=== PATIENT | female | born 1960 | race Caucasian/White ===

== ENCOUNTER 2017-03-20 22:10 | Emergency (ER) | payer BC ==
[~2017-03-20] VITALS: Ht 165.1 cm; Wt 97.1 kg
[~2017-03-20 22:10] MED LIST: ALBUTEROL2.5 MG/0.5 INH; AUGMENTIN 875-1 EACH PO; CEFDINIR300 MG PO; FLUTICASONE PRO16 GM NS; MUPIROCIN22 GM TOP; PREDNISONE20 MG PO; PSEUDOEPHEDRINE60 MG PO; QVAR7.3 GM INH; TESSALON PERLE100 MG PO
[2017-03-20] MEDS ORDERED: LISINOPRIL-HCT1 EAC2 PO (23:00)
[2017-03-20] MEDS ORDERED: VENTOLIN HFA18 GM INH (23:01)
--- NOTE | 2017-03-21 21:01 | EKG ---
[facility] [address] [place] [address] Signed Normal sinus rhythm Normal ECG No previous ECGs available Confirmed by LOURDES DURHAM MD ([id number]) on 03/21/2017 9:01:09 PM Electronically Signed By: LOURDES DURHAM MD 03/21/172100 PATIENT NAME: GABRIELLA DESHPANDE Electrocardiogram DATE OF : 58 PHYSICIAN: LOURDES DURHAM MD REPORT #: [id number] REPORT IS CONFIDENTIAL AND NOT TO BE RELEASED WITHOUT AUTHORIZATION
== END 2017-03-20 23:39 | disposition home or self-care (01) ==
LOC: ED 22:10
DX: R06.00 Dyspnea, unspecified (principal); R06.4 Hyperventilation; J45.909 Unspecified asthma, uncomplicated; I10 Essential (primary) hypertension; Z88.1 Allergy status to other antibiotic agents; Z79.51 Long term (current) use of inhaled steroids; Z79.899 Other long term (current) drug therapy
CPT/HCPCS: 71010; 80053; 82803; 85025; 93005; 93010; 99283

== ENCOUNTER 2019-05-19 23:05 | Emergency (ER) | payer BC ==
[~2019-05-19] VITALS: Ht 165.1 cm; Wt 99.8 kg
--- OUTSIDE RECORDS SUMMARY | ~2019-05-19 | XMS | Encounter Summary ---
Demographics + + + | Address | [address] | | | [place] [address] | + + + | Home Phone | | + + + | Preferred Language | Unknown | + + + | Marital Status | Single | + + + | Caodaism Affiliation | LDS | + + + | Race | White | + + + | Ethnic Group | Not or | + + + Author + + + | Author | [facility] | + + + | Organization | [facility] | + + + | Address | Unknown | + + + | Phone | Unavailable | + + + Support + + + + + | Name | Relationship | Address | Phone | + + + + + | Huber Chen | ECON | [address] | | | | | [place] [address] | | + + + + + Care Team Providers + +------+ + | Care Broadcast Operations Engineer Name | Role | Phone | + +------+ + PCP | Unavailable | + +------+ + Reason for Visit + + + | Reason | Comments | + + + | Sinusitis | she has a sinus infection and would like a call back | + + + Encounter Details +--------+ + + + + | Date | Type | Department | Care Team | Description | +--------+ + + + + | 10/30/ | Telephone | [place] [facility] | Brenden Rawls | Sinusitis (she has a | | 2007 | | Center at [facility] [address] | [address] | sinus infection and | | | | [address] | would like a call | | | | Mailcode: CH[address]E | [place] [address] | back) | | | | [facility] | | | | | | and Healing, | | | | | | Building [address], [address]th | | | | | | Floor [place], [place] | | | | | | [address] | | | | | | [phone] | | | +--------+ + + + + Social History + +-------+ +--------+------+ | Tobacco Use | Types | Packs/Day | Years | Date | | | | | Used | | + +-------+ +--------+------+ | Never Smoker | | | | | + +-------+ +--------+------+ + + +---------+ + | Alcohol Use | Drinks/Week | oz/Week | Comments | + + +---------+ + | No | | | | + + +---------+ + + + + | Sex Assigned at | Date Recorded | | | | + + + | Not on file | | + + + + + + + | Job Start Date | Occupation | Industry | + + + + | Not on file | Not on file | Not on file | + + + + + + + + | Travel History | Travel Start | Travel End | + + + + + + | No recent travel history available. | + + documented as of this encounter Plan of Treatment Not on filedocumented as of this encounter Visit Diagnoses Not on filedocumented in this encounter"
--- OUTSIDE RECORDS SUMMARY | ~2019-05-19 | XMS | Encounter Summary ---
Demographics + + + | Address | [address] | | | [place] [address] | + + + | Home Phone | | + + + | Preferred Language | Unknown | + + + | Marital Status | Single | + + + | Baptism Affiliation | 1027 | + + + | Race | Unknown | + + + | Ethnic Group | Unknown | + + + Author + + + | Author | [facility] | | | and [place] | + + + | Organization | [facility] | | | and [place] | + + + | Address | Unknown | + + + | Phone | Unavailable | + + + Support + + +---------+ + | Name | Relationship | Address | Phone | + + +---------+ + | Huber Chen | ECON | Unknown | | + + +---------+ + Care Team Providers + +------+ + | Care Guest Services Assistant Name | Role | Phone | + +------+ + | Cachorro Maddox DO | PCP | Unavailable | + +------+ + Reason for Visit + + + | Reason | Comments | + + + | Medication Refill | | + + + Encounter Details +--------+--------+ + + + | Date | Type | Department | Care Team | Description | +--------+--------+ + + + | 05/11/ | Refill | [facility] | Cachorro Maddox | Medication Refill | | 2018 | | [facility] | E, DO [address] | | | | | [facility] [address] | [place], [place] | | | | | [address] [place], | [address] | | | | | [place] [address] | [phone] | | | | | [phone] | | | +--------+--------+ + + + Social History + +-------+ +--------+------+ | Tobacco Use | Types | Packs/Day | Years | Date | | | | | Used | | + +-------+ +--------+------+ | Never Smoker | | | | | + +-------+ +--------+------+ + +---+---+---+ | Smokeless Tobacco: | | | | | Never Used | | | | + +---+---+---+ + + +---------+ + | Alcohol Use | Drinks/We | oz/Week | Comments | | | ek | | | + + +---------+ + | No [...]
--- OUTSIDE RECORDS SUMMARY | ~2019-05-19 | XMS | Encounter Summary ---
Demographics + + + | Address | [address] | | | [place] [address] | + + + | Home Phone | | + + + | Preferred Language | Unknown | + + + | Marital Status | Single | + + + | Pentecostal Affiliation | LDS | + + + [...] | | | | | [place] [address] | | + + + + + Care Team Providers + +------+ + | Care Lead Manufacturing Engineer Name | Role | Phone | + +------+ + PCP | Unavailable | + +------+ + Reason for Visit +---------+ + | Reason | Comments | +---------+ + | Post Op | she is still getting a lot of blood drainage w/ watery drainage | | | and would like a call back. | +---------+ + Encounter Details +--------+ + + + + | Date | Type | Department | Care Team | Description | +--------+ + + + + | 08/02/ | Telephone | [place] [facility] | Dylan Rawls, | Post Op (she is | | 2007 | | Center at [facility] [address] | MD [address] | still getting a lot | | | | [address] | [place], [place] | of blood drainage w/ | | | | Mailcode: [facility] | [address] | watery drainage and | | | | [facility] | [phone] | would like a call | | | | and Healing, | | back.) | | | | Building , | | | | | | Floor [place], [place] | | | | | | [address] | | | | | | [phone] | | | +--------+ + + + [...]
--- OUTSIDE RECORDS SUMMARY | ~2019-05-19 | XMS | Encounter Summary ---
Demographics + + + | Address | [address] | | | [place] [address] | + + + | Home Phone | | + + + | Preferred Language | Unknown | + + + | Marital Status | Single | + + + | Islam Affiliation | LDS | + + + | Race | White | + + + | Ethnic Group | Not or | + + + Author + + + | Author | [facility] | + + + | Organization | [facility] | + + + | Address | Unknown | + + + | Phone | Unavailable | + + + Support + + + + + | Name | Relationship | Address | Phone | + + + + + | Huber Chen | ECON | [address] | | | | | [place] [address] | | + + + + + Care Team Providers + +------+ + | Care Psychologist Private Practice Name | Role | Phone | + +------+ + PCP | Unavailable | + +------+ + Reason for Visit + + + | Reason | Comments | + + + | Discussion | she would like us to fax in a letter to her employer stating why | | | she has not been able to work the last few days | + + + Encounter Details +--------+ + + + + | Date | Type | Department | Care Team | Description | +--------+ + + + + | 07/24/ | Telephone | [place] [facility] | Dylan Rawls, | Discussion (she | | 2008 | | Center at [facility] [address] | MD [address] | would like us to fax | | | | [address] | [place], [place] | in a letter to her | | | | Mailcode: CH5E | [address] | employer stating why | | | | [facility] | [phone] | she has not been | | | | and Healing, | | able to work the | | | | Building | | last few days) | | | | Floor [place], [place] | | | | | | [address] | | | | | | [phone] | | | +--------+ + + + [...]
--- OUTSIDE RECORDS SUMMARY | ~2019-05-19 | XMS | Encounter Summary ---
Demographics + + + | Address | [address] | | | [place] [address] | + + + | Home Phone | | + + + | Preferred Language | Unknown | + + + | Marital Status | Single | + + + | Congregation Affiliation | LDS | + + + | Race | White | + + + | Ethnic Group | Not or | + + + Author + + + | Author | [facility] | + + + | Organization | [facility] | + + + | Address | Unknown | + + + | Phone | Unavailable | + + + Support + + + + + | Name | Relationship | Address | Phone | + + + + + | Huber Chen | ECON | [address] | | | | | [place] [address] | | + + + + + Care Team Providers + +------+ + | Care Money Position Officer Name | Role | Phone | + +------+ + | Cachorro Maddox DO | PCP | | + +------+ + Reason for Visit +--------+ + | Reason | Comments | +--------+ + | Rash | Patient presents for presisitant rash. Pt states that it appears | | | like acne and that it's all over her body. Pt states that it's | | | ongoing since 2007. Dr. Maddox had her use hibiclens on and off. | | | Pt states that she brought the products with her to appt that | | | she is using now. | +--------+ + Consultation (Routine) +--------+--------+ + + + + | Status | Reason | Specialty | Diagnoses / | Referred By | Referred To | | | | | Procedures | Contact | Contact | +--------+--------+ + + + + | Closed | | Dermatology | Diagnoses | Tan, | [place], | | | | | Contact | DO Cachorro | Eileen Wu, | | | | | dermatitis | [address] | ,PhD 1935 | | | | | and other | [place], | E | | | | | eczema, due | [place] | [place], | | | | | to | [address] | [place] [address] | | | | | unspecified | Phone: | Phone: | | | | | cause | [phone] | [phone] | | | | | | Fax: | Fax: | | | | | | [phone] | [phone] | +--------+--------+ + + + + Encounter Details +--------+---------+ + + + | Date | Type | Department | Care Team | Description | +--------+---------+ + + + | 07/08/ | Office | Dermatology at | Eileen Teixeira, | Folliculitis | | 2015 | Visit | [facility] | ,PhD 1935 | (Primary Dx) | | | | Clinic [address] | [address] [place], [place] | | | | | [place], [place] | [address] | | | | | [address] | [phone] | | | | | [phone] | | | +--------+---------+ + + + Social History + +-------+ +--------+------+ | Tobacco Use | Types | Packs/Day | Years | Date | | | | | Used | | + +-------+ +--------+------+ | Never Smoker | | | | | + +-------+ +--------+------+ + + +---------+ + | Alcohol Use | Drinks/Week | oz/Week | Comments | + + +---------+ + | No | 0 Standard drinks | 0.0 | | | | or equivalent | | | + + +---------+ + [...] + + documented as of this encounter Last Filed Vital Signs + + + + + | Vital Sign | Reading | Time Taken | Comments | + + + + + | Blood Pressure | 138/80 | 07/08/2015 11:44 AM | | | | | PST | | + + + + + | Pulse | 74 | 07/08/2015 11:44 AM | | | | | PST | | + + + + + | Temperature | - | - | | + + + + + | Respiratory Rate | - | - | | + + + + + | Oxygen Saturation | - | - | | + + + + + | Inhaled Oxygen | - | - | | | Concentration | | | | + + + + + | Weight | 97.5 kg (215 lb) | 07/08/2015 11:44 AM | | | | | PST | | + + + + + | Height | 163.8 cm (5' 4.5") | 07/08/2015 11:44 AM | | | | | PST | | + + + + + | Body Mass Index | 36.33 | 07/08/2015 11:44 AM | | | | | PST | | + + + + + documented in this encounter Patient Instructions Patient Instructions Jessica Price MA - 07/08/2015 11:55 AM PSTFormatting of this note m ight be different from the original. [facility] Skin Care for Atopic Dermatitis and Very Dry Skin 1. Use soap sparingly and infrequently, and do not take hot showers or baths Soap removes oils as well as dirt. If you want to clean a greasy cooking pot, you use hot w ater and lots of soap. But if you use hot water and soap on your skin, it will strip natural oils out of the skin. These oils are designed to protect your skin, and keep it from drying out. Our skin is NOT designed to be soaped up every day. Skin is normally pretty resilient and tough, and many people can tolerate daily treatment with soap all over their skin -- but not people with atopic dermatitis or sensitive skin. So: ? When you take a shower, only soap your armpits and groin; do not use cleanser on the rest of your skin unless it is visibly dirty. ? Do not take long, hot showers: even without cleanser this will irritate the skin. If your skin is already itching, the hot water will feel VERY good -- but will make the skin feel w orse, later. ? If you take baths, do not make them very hot. AND, do not use any soap or shampoo at all until you are about ready to get out! Again, use cleanser only in the armpits & groin, or vi sibly dirty areas, and rinse off immediately. ? If you must use an antibacterial soap, I recommend Hibiclens Wash 1-2 times a week. If bl each baths have been recommended by your doctor add 1/4 cup bleach to a full bath and soak o nce weekly. Mild Cleansers ? Dove Unscented bar ? Olay Body bar ? Cetaphil bar ? Cetaphil cleanser (does not foam but works well!) ? Neutrogena cleansing wash ? Purpose liquid cleanser 2. Use moisturizing CREAMS or OINTMENTS -- not lotions Moisturizers do NOT really add moisture to the skin, but they help add a protective coating that reduces water loss, allowing the skin to moisturize itself from the inside. Apply your moisturizer IMMEDIATELY after your shower or bath to SEAL in the moisture you gained. "Soak , and Seal!" For people with very dry skin, LOTIONS ARE MOSTLY USELESS, and many of them will irritate t he skin. Creams (oil in water emulsions; too thick to make "drops") are generally good moist urizers, and ointments are the best of all, but ointments are greasy and not very elegant -- most people don't enjoy using them. 3. Apply cream or ointment twice a day, and after every shower/bath. Moisturizers can be ap plied as often as desired; use them liberally at least twice a day. The most important time to apply a moisturizer is right after bathing or showering, before the skin is completely dr y. Most moisturizing creams will do the job: it is safest, however, to choose creams that do n ot have added fragrance. Recommended creams ? Cetaphil Cream (my favorite: very effective and very well tolerated) ? CeraVe Cream ? Curel Dry Skin Care ? Eucerin Cream (pretty thick, and hard to apply, but very effective; no odor) ? Neutrogena Hand Cream ? Vanicream (especially good for sensitive skin) Ointments ? Vaseline (100% petroleum jelly) ? Aquaphor ointment 4. Avoid contact with irritants and solvents ? Wool clothing, or any rough fabric ? Alcohol will strip oils from the skin: Avoid toners ? Kitchen cleansers and solvents ? Bleach ? Avoid hydrogen peroxide documented in this encounter Progress Notes Eileen Teixeira MD,PhD - 07/08/2015 11:59 AM PSTFormatting of this note might be differen t from the original. DERMATOLOGY NEW PATIENT VISIT CHIEF COMPLAINT: Rash PCP: Cachorro Maddox DO HISTORY OF PRESENT ILLNESS: Jesusita Chen is a 55 y.o. female who presents for evaluation of Rash She is here for eval uation of skin problems. She describes that for the last 7 or 8 years she has had acne-like bumps that developed on her buttocks and legs. She states they start as either pink bumps or pustules, they can be somewhat itchy, and generally she scratches them until they leave a small scar. The scars are bothersome to her more than the rash. She states that this all started after she had numerous bouts of sinusitis that required sinus surgery. She had been on numerous courses of antibiotics. She has no personal history of skin cancer and declines a full body skin exam today. She h as used Hibiclens in the past. The patient's dermatology intake form was reviewed, signed, and dated. Her relevant PMH, F H, and SH includes: PAST MEDICAL HISTORY: Past Medical History Diagnosis Date Sinus infection Heartburn PAST SURGICAL HISTORY: No past surgical history on file. SOCIAL HISTORY: Patient reports that she has never smoked. She does not have any smokeless tobacco history on file. She reports that she does not drink alcohol. MEDICATIONS: Current Medication List Name Sig CLINDAMYCIN 1 % LOTION Apply to affected area two times daily. Apply a thin film to the af fected area. FLUTICASONE 50 MCG/ACTUATION NASAL SPRAY,SUSPENSION Instill 2 Sprays into each nostril once daily. PRILOSEC 20 MG CAPSULE,DELAYED RELEASE take 1 capsule (20 mg) by oral route once daily befo re a meal PREDNISOLONE ACETATE 1 % EYE DROPS,SUSPENSION Instill into both eyes. Use three drops in ea ch NOSTRIL BID PREDNISOLONE ACETATE 1 % EYE DROPS,SUSPENSION Instill in nose. Three drops in each nostril BID. ALLERGIES: No Known Allergies REVIEW OF SYSTEMS: Please see HPI and PMH. In addition, she denies fever, chills, sweats, weight loss or loss of appetite, and has no further skin complaints. PHYSICAL EXAMINATION: BP 138/80 | Pulse 74 | Ht 1.638 m (5' 4.5") | Wt 97.523 kg (215 lb) | BMI 36.35 kg/(m^2) Well-developed, well-nourished female in no acute distress. Awake, alert and oriented. Pl easant and cooperative mood. A skin examination was performed including the buttocks, bilateral arms and legs, bilateral hands and feet, and nails. Findings were within normal limits except for the following: --violaceous angular scars and erosions with crust scattered infrequently on the legs and b uttocks ASSESSMENT AND PLAN: Folliculitis (primary encounter diagnosis) Comment: we discussed that there were no primary lesions (lesions that had not been manipul ated) on exam today, and that a skin biopsy of a new and untouched lesion may be helpful. Ba sed on the distribution and her description of the lesions this is most likely folliculitis. --Dry skin care handout provided --Start clindamycin lotion daily --Call in 1 month, if not improved we discussed low dose DCN (100 mg daily), or having her come back with a fresh lesion for Bx Plan: Orders Placed This Encounter clindamycin 1 % topical lotion RETURN VISIT: Return in about 1 month (around 08/08/2015). Eileen Teixeira MD, PhD Clinical Pharmacist Department of Dermatology [facility] [place] 07/08/2015 documented in th is encounter Plan of Treatment Not on filedocumented as of this encounter Visit Diagnoses + + | Diagnosis | + + | Folliculitis - Primary Other specified disease of hair and hair follicles | + + documented in this encounter
--- OUTSIDE RECORDS SUMMARY | ~2019-05-19 | XMS | Encounter Summary ---
Demographics + + + | Address | [address] | | | [place] [address] | + + + | Home Phone | | + + + | Preferred Language | Unknown | + + + | Marital Status | Single | + + + | Yazidism Affiliation | LDS | + + + | Race | White | + + + | Ethnic Group | Not or | + + + Author + + + | Author | [facility] | + + + | Organization | [facility] | + + + | Address | Unknown | + + + | Phone | Unavailable | + + + Support + + + + + | Name | Relationship | Address | Phone | + + + + + | Huber Chen | ECON | [address] | | | | | [place] [address] | | + + + + + Care Team Providers + +------+ + | Care Emergency Medcl Emt Name | Role | Phone | + +------+ + | Cachorro Maddox DO | PCP | | + +------+ + Encounter Details +--------+ + + + + | Date | Type | Department | Care Team | Description | +--------+ + + + + | 07/21/ | Ancillary | Registration [id number] | Dylan Rawls, | | | 2008 | Registratio | [address] | [address] | | | | n | [place] Mailcode: [id number] | [place], [place] | | | | | [place], [place] | [address] | | | | | [address] | [phone] | | | | | [phone] | | | +--------+ + + + [...]
--- OUTSIDE RECORDS SUMMARY | ~2019-05-19 | XMS | Encounter Summary ---
Demographics + + + | Address | [address] | | | [place] [address] | + + + | Home Phone | | + + + | Preferred Language | Unknown | + + + | Marital Status | Single | + + + | Baptist Affiliation | LDS | + + + | Race | White | + + + | Ethnic Group | Not or | + + + Author + + + | Author | [facility] | + + + | Organization | [facility] | + + + | Address | Unknown | + + + | Phone | Unavailable | + + + Support + + + + + | Name | Relationship | Address | Phone | + + + + + | Huber Chen | ECON | [address] | | | | | [place] [address] | | + + + + + Care Team Providers + +------+ + | Care Long Chain Quiller Tender Name | Role | Phone | + +------+ + PCP | Unavailable | + +------+ + Reason for Visit + + + | Reason | Comments | + + + | Sinusitis | she has another sinus infection and would like to get a return | | | call | + + + Encounter Details +--------+ + + + + | Date | Type | Department | Care Team | Description | +--------+ + + + + | 08/29/ | Telephone | [place] [facility] | Dylan Rawls, | Sinusitis (she has | | 2007 | | Center at [facility] [address] | MD [address] | another sinus | | | | [address] | [place], [place] | infection and would | | | | Mailcode: [facility] | [address] | like to get a return | | | | [facility] | [phone] | call) | | | | and Healing, | | | | | | [facility] , | | | | | | [place], [place] | | | | | | [address] | | | | | | [phone] | | | +--------+ + + + [...]
--- OUTSIDE RECORDS SUMMARY | ~2019-05-19 | XMS | Encounter Summary ---
Demographics + + + | Address | [address] | | | [place] [address] | + + + | Home Phone | | + + + | Preferred Language | Unknown | + + + | Marital Status | Single | + + + | Sikh Affiliation | LDS | + + + | Race | White | + + + | Ethnic Group | Not or | + + + Author + + + | Author | [facility] | + + + | Organization | [facility] | + + + | Address | Unknown | + + + | Phone | Unavailable | + + + Support + + + + + | Name | Relationship | Address | Phone | + + + + + | Huber Chen | ECON | [address] | | | | | [place] [address] | | + + + + + Care Team Providers + +------+ + | Care District Sales Coordinator Name | Role | Phone | + +------+ + | Cachorro Maddox DO | PCP | | + +------+ + Encounter Details +--------+ + + + + | Date | Type | Department | Care Team | Description | +--------+ + + + + | 07/29/ | Hospital | Registration 3181 | Dylan Rawls, | | | 2007 | Activity | [address] | [address] | | | | | [place] Mailcode: [id number] | [place], [place] | | | | | [place], [place] | [address] | | | | | [address] | [phone] | | | | | [phone] | | | +--------+ + + + [...] Not on filedocumented as of this encounter Procedures + +--------+ + + + | Procedure Name | Priori | Date/Time | Associated Diagnosis | Comments | | | ty | | | | + +--------+ + + + | SURGICAL PATHOLOGY | Routin | 07/29/2007 | | Results for this | | | e | | | procedure are in the | | | | | | results section. | + +--------+ + + + documented in this encounter Results SURGICAL PATHOLOGY (07/29/2007) + + + + + + | Component | Value | Ref Range | Performed | Pathologist | | | | | At | Signature | + + + + + + | SURGICAL | SOURCE OF SPECIMEN:A | | [facility] | | | PATHOLOGY | Left sinus contents | | DEPARTMENT | | | | Final Pathologic | | OF | | | | Diagnosis:Sinus | | PATHOLOGY | | | | contents, left, | | | | | | debridement: - | | | | | | Chronic sinusitis | | | | | | - Bone and cartilage | | | | | | fragments with no | | | | | | diagnostic abnormality | | | | | | Case reviewed by:Sai Elizondo | | | | | | Yessenia Terrell | | | | | | /Arturo Giordano | | | | | | Ana, Ph.D., M.D. | | | | | | /PathologistT:08/02/07/ | | | | | | I have reviewed all | | | | | | diagnostic slides and | | | | | | have edited the gross | | | | | | and/ormicroscopic | | | | | | portion of this report | | | | | | as part of my pathologic | | | | | | assessment andfinal | | | | | | diagnosis. Clinical | | | | | | History:The patient is a | | | | | | 47-year-old female. | | | | | | Per LCR Web: | | | | | | 47-year-old female | | | | | | withnasal septal | | | | | | deviation and left | | | | | | chronic sinusitis. Gross | | | | | | Description:Received is | | | | | | one specimen fresh in a | | | | | | container labeled with | | | | | | the patient | | | | | | name(initials DP) and | | | | | | "left sinus contents." | | | | | | Received are several | | | | | | fragments ofgelatinous, | | | | | | pink tissue measuring 3 | | | | | | x 2 x 1 cm in | | | | | | aggregate.Splicing Machine Operator Automatic | | | | | | sections are submitted. | | | | | | Cassette Index:A1, | | | | | | filtered and wrapped, | | | | | | decalcification | | | | | | performedJK/CPN/sgRender | | | | | | ing Diagnostician: | | | | | | Cheryl Perez Ph.D., | | | | | | | | | | | | MBobbiPathologistElectroni | | | | | | chika Signed 08/02/2007 | | | | + + + + + + + + | Specimen | + + | | + + + + + + + | Performing | Address | City/State/Zipcode | Phone Number | | Organization | | | | + + + + + | [facility] | [address] [place] [address] | [place] [address] | | | PATHOLOGY | SOLOMON BUTLER | | | + + + + + | [facility] | [address] [place] [address] | [place] [address] | | | PATHOLOGY | SOLOMON BUTLER | | | + + + + + documented in this encounter Visit Diagnoses Not on filedocumented in this encounter
--- OUTSIDE RECORDS SUMMARY | ~2019-05-19 | XMS | Clinical Summary ---
Demographics + + + | Address | [address] | | | [place] [address] | + + + | Home Phone | | + + + | Preferred Language | Unknown | + + + | Marital Status | Single | + + + | Evangelical Affiliation | 1027 | + + + | Race | Unknown | + + + | Ethnic Group | Unknown | + + + Author + + + | Author | [facility] | | | and [place] | + + + | Organization | [facility] | | | and [...] Team Providers + +------+ + | Care Decaler Name | Role | Phone | + +------+ + | Cachorro Maddox DO | PCP | Unavailable | + +------+ + Allergies + + + + + + | Active Allergy | Reactions | Severity | Noted | Comments | | | | | Date | | + + + + + + | Levofloxacin | Hives, Rash | Low | 02/29/20 | Dizziness and | | | | | 18 | sleeplessness | + + + + + + | Atorvastatin | Other (See Comments) | | 02/29/20 | Muscle aches | | | | | 18 | | + + + + + + Medications + + + +---------+------+------+-------+ | Medication | Sig | Dispensed | Refills | Star | End | Statu | | | | | | t | Date | s | | | | | | Date | | | + + + +---------+------+------+-------+ | acetaminophen | Take 650 mg by mouth | | 0 | | | Activ | | (TYLENOL) 325 mg | every 4 hours as | | | | | e | | tablet | needed. | | | | | | + + + +---------+------+------+-------+ | fluticasone | Instill 2 Sprays | | 0 | 04/1 | | Activ | | (FLONASE) 50 | into each nostril | | | 7/20 | | e | | mcg/nasal spray | once daily. | | | 09 | | | + + + +---------+------+------+-------+ | cetirizine (KLS | Take 10 mg by mouth | | 0 | | | Activ | | ALLER-EPI) 10 mg | Daily. | | | | | e | | tablet | | | | | | | + + + +---------+------+------+-------+ | UNCODED DME | CPAP Device and kit | | 0 | | | Activ | | | | | | | | e | + + + +---------+------+------+-------+ | Hypertonic Nasal | by Nasal route. | | 0 | | | Activ | | Wash (SINUS RINSE | | | | | | e | | BOTTLE KIT) PACK | | | | | | | + + + +---------+------+------+-------+ | azelastine 0.1% | 2 sprays by Nasal | 30 mL | 3 | 10/2 | | Activ | | nasal spray | route 2 times daily. | | | 20 | | e | | | Uses only at work | | | 18 | | | + + + +---------+------+------+-------+ | sulfacetamide | Instill 2 drops into | 10 mL | 0 | 02/1 | | Activ | | (BLEPH-10) 10% | affected eye 4 | | | 20 | | e | | ophthalmic solution | times daily for 7 | | | 19 | | | | | days as directed. | | | | | | + + + +---------+------+------+-------+ | montelukast | Take 1 tablet by | 30 | 11 | 05/1 | | Activ | | (SINGULAIR) 10 mg | mouth Daily. | tablet | | 20 | | e | | tabletIndications: | | | | 19 | | | | Chronic pansinusitis | | | | | | | + + + +---------+------+------+-------+ | albuterol 2.5 mg/3 | Take 3 mLs by | 60 vial | 11 | 06/0 | | Activ | | mL nebulizer | nebulization 4 times | | | 3/20 | | e | | solution | daily. | | | 19 | | | + + + +---------+------+------+-------+ | | Take 5-10 mLs by | 120 mL | 0 | 06/1 | | Activ | | promethazine-codeine | mouth EVERY 4 TO 6 | | | 3/20 | | e | | (PHENERGAN WITH | HOURS NEEDED for | | | 19 | | | | CODEINE) 6.25-10 | Cough. | | | | | | | mg/5 mL syrup | | | | | | | + + + +---------+------+------+-------+ | albuterol 90 | INHALE 2 PUFFS EVERY | 18 g | 1 | 10/2 | | Activ | | mcg/puff inhaler | 6 HOURS NEEDED | | | 8/20 | | e | | | FOR WHEEZING, USE | | | 19 | | | | | DIRECTED | | | | | | + + + +---------+------+------+-------+ | pseudoePHEDrine | TAKE 1 TABLET BY | 60 | 0 | 10/2 | | Activ | | (SUDOGEST) 30 mg | MOUTH EVERY 4 HOURS | tablet | | 8/20 | | e | | tablet | NEEDED FOR UP | | | 19 | | | | | TO 15 DAYS | | | | | | + + + +---------+------+------+-------+ | | TAKE 1 TABLET BY | 90 | 3 | 10/2 | | Activ | | lisinopril-hydrochlo | MOUTH ONCE DAILY | tablet | | 20 | | e | | rothiazide | | | | 19 | | | | (PRINZIDE,ZESTORETIC | | | | | | | | ) 10-12.5 MG per | | | | | | | | tablet | | | | | | | + + + +---------+------+------+-------+ | | TAKE 1 TABLET BY | 90 | 3 | 09/2 | 10/2 | Disco | | lisinopril-hydrochlo | MOUTH ONCE DAILY | tablet | | 8/20 | 6/20 | ntinu | | rothiazide | | | | 18 | 19 | ed | | (PRINZIDE,ZESTORETIC | | | | | | | | ) 10-12.5 MG per | | | | | | | | tablet | | | | | | | + + + +---------+------+------+-------+ | albuterol | Inhale 2 puffs into | 18 g | 1 | 04/1 | 10/2 | Disco | | (VENTOLIN HFA) 90 | the lungs every 6 | | | 9/20 | 6/20 | ntinu | | mcg/puff inhaler | hours as needed for | | | 19 | 19 | ed | | | Wheezing. Use as | | | | | | | | directed | | | | | | + + + +---------+------+------+-------+ | SUDOGEST 30 MG | TAKE 1 TABLET BY | 60 | 0 | 10/0 | 10/2 | Disco | | tablet | MOUTH EVERY 4 HOURS | tablet | | 1/20 | 4/20 | ntinu | | | NEEDED FOR UP | | | 19 | 19 | ed | | | TO 15 DAYS | | | | | | + + + +---------+------+------+-------+ | cefuroxime | Take 1 tablet by | 20 | 0 | 10/0 | 10/1 | Expir | | (CEFTIN) 250 mg | mouth 2 times daily | tablet | | 7/20 | 7/20 | ed | | tablet | for 10 days. | | | 19 | 19 | | + + + +---------+------+------+-------+ | pseudoePHEDrine | TAKE 1 TABLET BY | 60 | 0 | 10/2 | 10/2 | Disco | | (SUDOGEST) 30 mg | MOUTH EVERY 4 HOURS | tablet | | 4/20 | 6/20 | ntinu | | tablet | NEEDED FOR UP | | | 19 | 19 | ed | | | TO 15 DAYS | | | | | | + + + +---------+------+------+-------+ | albuterol 90 | INHALE 2 PUFFS EVERY | 18 g | 1 | 10/2 | 10/2 | Disco | | mcg/puff inhaler | 6 HOURS NEEDED | | | 8/20 | 8/20 | ntinu | | | FOR WHEEZING, USE | | | 19 | 19 | ed | | | DIRECTED | | | | | | + + + +---------+------+------+-------+ | pseudoePHEDrine | TAKE 1 TABLET BY | 60 | 0 | 10/2 | 10/2 | Disco | | (SUDOGEST) 30 mg | MOUTH EVERY 4 HOURS | tablet | | 8/20 | 8/20 | ntinu | | tablet | NEEDED FOR UP | | | 19 | 19 | ed | | | TO 15 DAYS | | | | | | + + + +---------+------+------+-------+ | | TAKE 1 TABLET BY | 90 | 3 | 10/ | / | Disco | | lisinopril-hydrochlo | MOUTH ONCE DAILY | tablet | | 03/07 | 03/07 | ntinu | | rothiazide | | | | 19 | 19 | ed | | (PRINZIDE,ZESTORETIC | | | | | | | | ) 10-12.5 MG per | | | | | | | | tablet | | | | | | | + + + +---------+------+------+-------+ Active Problems + + + | Problem | Noted Date | + + + | Mild persistent asthma with acute exacerbation | 12/19/2018 | + + + | Chronic maxillary sinusitis | 07/21/2007 | + + + | Chronic sinusitis | | + + + | Essential hypertension | | + + + | Osteoarthritis, localized, knee | | + + + | LUCINDA (obstructive sleep apnea) | | + + + Encounters +--------+ + + + + | Date | Type | Specialty | Care Team | Description | +--------+ + + + + | 05/15/ | Refill | Primary Care | Cachorro Maddox | Medication Refill | | 2018 | | | E, DO | | +--------+ + + + + | 05/13/ | Refill | Primary Care | Cachorro Maddox | Medication Refill | | 2018 | | | E, DO | | +--------+ + + + + | 05/11/ | Refill | Primary Care | Cachorro Maddox | Medication Refill | | 2018 | | | E, DO | | +--------+ + + + + | 04/27/ | Refill | Primary Care | Cachorro Maddox | Medication Refill | | 2018 | | | E, DO | | +--------+ + + + + | 04/24/ | Telephone | Primary Care | Cachorro Maddox | Cough (Rx for Sinus | | 2018 | | | E, DO | inf) | +--------+ + + + + | 04/18/ | Refill | Primary Care | Cachorro Maddox | Medication Refill | | 2018 | | | E, DO | | +--------+ + + + + | 04/04/ | Refill | Primary Care | Cachorro Maddox | Medication Refill | | 2018 | | | E, DO | (Rx for Sinus inf?) | +--------+ + + + + | 02/28/ | Refill | Primary Care | Cachorro Maddox | Medication Refill | | 2019 | | | E, DO | | +--------+ + + + + from Last 3 Months Immunizations + + + + | Name | Dates Previously Given | Next Due | + + + + | HEP B, 3 DOSE | 08/05/2017, 11/29/2012 | | | (ADULT) | | | + + + + | INFLUENZA PF | 04/12/2018, 04/12/2017, 05/25/2016, | | | QUAD(PED/ADOL/ADULT) | 06/26/2015 | | | ,PSKT or VIAL | | | + + + + | PNEUMOCOCCAL | 09/25/2010 | | | POLYSACCHARIDE | | | | 23-VALENT (PPSV23) | | | + + + + | TDAP, (ADOL/ADULT) | 04/12/2018 | | + + + + Family History + + + + + | Medical History | Relation | Name | Comments | + + + + + | Other (see comment) | Brother | | V [place] & hyperfibrinogenemia | + + + + + | Other (see comment) | Other | 5 family | V Leiden | | | | members | | + + + + + + + +--------+ + | Relation | Name | Status | Comments | + + +--------+ + | Brother | | | | + + +--------+ + | Other | 5 family | | | | | members | | | + + +--------+ + Social History + +-------+ +--------+------+ | Tobacco Use | Types | Packs/Day | Years | Date | | | | | Used | | + +-------+ +--------+------+ | Never Smoker | | | | | + +-------+ +--------+------+ + +---+---+---+ | Smokeless Tobacco: | | | | | Never Used | | | | + +---+---+---+ + + | Tobacco Cessation: Counseling Given: No | + + + + +---------+ + | Alcohol Use [...] recent travel history available. | + + Last Filed Vital Signs + + + + | Vital Sign | Reading | Time Taken | + + + + | Blood Pressure | 144/80 | 12/19/20181316 PDT | + + + + | Pulse | 75 | 12/19/20181316 PDT | + + + + | Temperature | 36.6 C (97.9 F) | 11/29/20181311 PDT | + + + + | Respiratory Rate | 20 | 12/19/20181316 PDT | + + + + | Oxygen Saturation | 98% | 12/19/20181316 PDT | + + + + | Inhaled Oxygen | - | - | | Concentration | | | + + + + | Weight | 100.7 kg (222 lb) | 12/19/20181316 PDT | + + + + | Height | 165.1 cm (5' 5") | 12/19/20181316 PDT | + + + + | Body Mass Index | 36.94 | 12/19/20181316 PDT | + + + + Plan of Treatment + + + + + | Health Maintenance | Due Date | Last Done | Comments | + + + + + | Hepatitis C | | | | | Screening | 9 | | | + + + + + | Cervical Cancer | | | | | Screening (Pap) | 9 | | | + + + + + | Colorectal Cancer | | | | | Screening | 9 | | | | (Colonoscopy) | | | | + + + + + | Vaccine: Zoster (1 | | | | | of 2) | 9 | | | + + + + + | Breast Cancer | | | | | Screening | 4 | | | + + + + + | Vaccine: Influenza | | 04/12/2018, 04/12/2017, | | | (#1) | 9 | 04/12/2017, Additional history | | | | | exists | | + + + + + | Primary Care | | 12/19/2018, 11/29/2018, | | | Outreach (Low Risk) | 1 | 04/12/2018 | | + + + + + | Vaccine: | | 04/12/2018 | | | Dtap/Tdap/Td (2 - | 8 | | | | Td) | | | | + + + + + | Vaccine: | Completed | 09/25/2010 | | | Pneumococcal 19-64 | | | | | (PPSV23 only) Medium | | | | | Risk | | | | + + + + + Results Not on filefrom Last 3 Months Insurance + +--------+ +--------+ +---------+--------+ | Payer | Benefi | Subscriber | Effect | Phone | Address | Type | | | t Plan | ID | nikolas | | | | | | / | | Dates | | | | | | Group | | | | | | + +--------+ +--------+ +---------+--------+ | [place] | [id number] | 11/17/19 | [phone] | | [place] | | | [place] | | 17-Pre | 9 | | | | | | | sent | | | | + +--------+ +--------+ +---------+--------+ | [employer] | MODA | [id number] | 05/16/ | [phone] | | Medica | | MEDICAID HMO | HEALTH | | 2015-P | 1 | | id | | | MDCD | | resent | | | | | | [place] | | | | | | + +--------+ +--------+ +---------+--------+ + +--------+ +--------+ + + | Guarantor Name | Accoun | Relation to | Date | Phone | Billing Address | | | t Type | Patient | of | | | | | | | | | | + +--------+ +--------+ + + | Jesusita Chen | Person | Self [birth year] | [address] | | | al/Fam | | 1960 | [phone] | [place] | | | [place] | | | 3 (Home) | [address] | + +--------+ +--------+ + + | Jesusita Chen | Person | Self [birth year] | [address] | | | al/Fam | | [birth year] | [phone] | [place] | | | [place] | | | [address] (Home) | [address] | + +--------+ +--------+ + + Advance Directives Patient has advance care planning documents on file. For more information, please contact:[facility] [place] [address]
--- OUTSIDE RECORDS SUMMARY | ~2019-05-19 | XMS | Encounter Summary ---
Demographics + + + | Address | [address] | | | [place] [address] | + + + | Home Phone | | + + + | Preferred Language | Unknown | + + + | Marital Status | Single | + + + | Anabaptism Affiliation | 1027 | + + + | Race | Unknown | + + + | Ethnic Group | Unknown | + + + Author + + + | Author | [facility] | | | and [place] | + + + | Organization | [facility] | | | [...] Team Providers + +------+ + | Care School Counsellor Name | Role | Phone | + +------+ + | Cachorro Maddox DO | PCP | Unavailable | + +------+ + Reason for Visit +--------+ + | Reason | Comments | +--------+ + | Cough | Rx for Sinus inf | +--------+ + Encounter Details +--------+ + + + + | Date | Type | Department | Care Team | Description | +--------+ + + + + | 04/24/ | Telephone | [facility] | Cachorro Maddox | Cough (Rx for Sinus | | 2019 | | [facility] | E, DO [address] | inf) | | | | [facility] [address] | [place], [place] | | | | [address] [place], | [address] | | | | | [place] [address] | [phone] | | | | | [phone] | | | +--------+ + + + [...]
--- OUTSIDE RECORDS SUMMARY | ~2019-05-19 | XMS | Encounter Summary ---
Demographics + + + | Address | [address] | | | [place] [address] | + + + | Home Phone [...] Author + + + | Author | [facility] | + + + | Organization | [facility] | + + + | Address | Unknown | + + + | Phone | Unavailable | + + + Support + + + + + | Name | Relationship | Address | Phone | + + + + + | Huber Chen | ECON | [address] | | | | | [place] [address] | | + + + + + Care Team Providers + +------+ + | Care Teachers Aide Name | Role | Phone | + +------+ + PCP | Unavailable | + +------+ + Encounter Details +--------+ + + + + | Date | Type | Department | Care Team | Description | +--------+ + + + + | 07/29/ | Med | AMBULATORY SURGERY | Dylan Rawls, | | | 2007 | Reconciliat | [address] | [address] | | | | ion | [address] | [place], [place] | | | | | [place] | [address] | | | | | [address] [place], [place] | [phone] | | | | | [address] | | | +--------+ + + + [...]
--- OUTSIDE RECORDS SUMMARY | ~2019-05-19 | XMS | Clinical Summary ---
Demographics + + + | Address | [address] | | | [place] [address] | + + + | Home Phone | | + + + | Preferred Language | Unknown | + + + | Marital Status | Single | + + + | Baptism Affiliation | Unknown | + + + | Race | Unknown | + + + | Ethnic Group | Unknown | + + + Author + + + | Author | [email or web address] (Historical as of | | | 03-04-19) | + + + | Organization | [facility] (Historical as of | | | 03-04-19) | + + + | Address | Unknown | + + + | Phone | Unavailable | + + + Support + + +---------+ + | Name | Relationship | Address | Phone | + + +---------+ + | Reggie Chen | ECON | Unknown | | + + +---------+ + Care Team Providers + +------+ + | Care Supervisor Slitting And Shipping Name | Role | Phone | + +------+ + PP | Unavailable | + +------+ + Allergies Not on File Current Medications Not on file Active Problems Not on file Social History + +-------+ +--------+------+ | Tobacco Use | Types | Packs/Day | Years | Date | | | | | Used | | + +-------+ +--------+------+ | Never Assessed | | | | | + +-------+ +--------+------+ + + + | Sex Assigned at | Date Recorded | | | | + + + | Not on file | | + + + Plan of Treatment + + + + + | Health Maintenance | Due Date | Last Done | Comments | + + + + + | Vaccine: | | | | | Dtap/Tdap/Td (1 - | 8 | | | | Tdap) | | | | + + + + + | Cervical Cancer | | | | | Screening (Pap) | 9 | | | + + + + + | Breast Cancer | | | | | Screening | 9 | | | | (Mammogram) | | | | + + + + + | Colon Cancer | | | | | Screening | 9 | | | | (Colonoscopy) | | | | + + + + + | Vaccine: Zoster (1 | | | | | of 2) | 9 | | | + + + + + | Vaccine: Influenza | | | | | (#1) | 9 | | | + + + + + Results Not on filefrom Last 3 Months"
--- OUTSIDE RECORDS SUMMARY | ~2019-05-19 | XMS | Encounter Summary ---
Demographics + + + | Address | [address] | | | [place] [address] | + + + | Home Phone [...] Author + + + | Author | [facility] | + + + | Organization | [facility] | + + + | Address | Unknown | + + + | Phone | Unavailable | + + + Support + + + + + | Name | Relationship | Address | Phone | + + + + + | Huber Chen | ECON | [address] | | | | | [place] [address] | | + + + + + Care Team Providers + +------+ + | Care Asphalt Plant Operator Name | Role | Phone | + +------+ + PCP | Unavailable | + +------+ + Reason for Visit +---------+ + | Reason | Comments | +---------+ + | Post Op | | +---------+ + Office Visit - E/M Services (Routine) +--------+--------+ + + + + | Status | Reason | Specialty | Diagnoses / | Referred By | Referred To | | | | | Procedures | Contact | Contact | +--------+--------+ + + + + | Closed | | Otolaryngolog | | Chas, | Curly | | | | y | | Eda Kelly, | Dylan Falcon MD | | | | | | MD ALLERGY | [address] | | | | | [address] | [address] | | | | | | [address] | [facility] [place] | | | | | | [place] | [address] | | | | | | [address] | Phone: | | | | | | SUE | [phone] | | | | | | [place] [address] | Fax: | | | | | | Phone: | [phone] | | | | | | [phone] | | | | | | | Fax: | | | | | | | [phone] | | +--------+--------+ + + + + Encounter Details +--------+---------+ + + + | Date | Type | Department | Care Team | Description | +--------+---------+ + + + | 08/23/ | Office | [facility] | Dylan Rawls, | Chronic Ethmoidal | | 2007 | Visit | Center at [facility] [address] | MD [address] | Sinusitis; Chronic | | | | [address] | [place], [place] | Maxillary Sinusitis | | | | Mailcode: [place] | [address] | | | | | [facility] | [phone] | | | | | and Healing, | | | | | | [facility] | | | | | | [place], [place] | | | | | | [address] | | | | | | [phone] | | | +--------+---------+ + + + [...] + + documented as of this encounter Progress Notes John Arroyo - 08/23/2007 2:00 PM PSTHISTORY: Jesusita Chen is a 47 y.o. female who pre sents for 3 wk follow up of sinus surgery. She is not having any significant difficulties. She denies abnormal bleeding, pain, vision disturbance, clear fluid drainage. Some sensitiv ity with cold air. Breathing much improved through the nose. Smell is not improved. Overall doing much better since before surgery. Current medication regimen includes Nasacort, sinus irrigations, and bactroban. PHYSICAL EXAM: Anterior rhinoscopy reveals crusting in the middle meatus. PROCEDURE: Nasal Endoscopy with Debridement Anesthesia: 4% topical lidocaine Description of procedure: A rigid endoscope was utilized. No crusts. No adverse synechiae were noted. IMPRESSION/PLAN: Will continue with medication regimen with the following changes. She wi ll call with any problems in the meantime. Start using saline rinses PRN and bactroban PRN. Continue Nasacort. Followup 3 months. I personally interviewed the patient, duplicated the pertinent parts of the physical examin ation and procedure and personally formulated the plan. I have reviewed, entered my finding s, and agree with the above documentation. Dylan Rawls M.D., M.P.H., F.A.C.S. Director, [facility] Professor and Chief, Rhinology and Sinus Surgery Department of Otolaryngology/Head and Neck Surgery documented in this encou nter Plan of Treatment + + +--------+ + + | Name | Type | Priori | Associated Diagnoses | Order Schedule | | | | ty | | | + + +--------+ + + | NASAL ENDOSCOPY, | Procedures | Routin | Chronic Ethmoidal | Ordered: 08/24/2007 | | DIAGNOSTIC | | e | Sinusitis Chronic | | | | | | Maxillary Sinusitis | | + + +--------+ + + documented as of this encounter Visit Diagnoses + + | Diagnosis | + + | Chronic ethmoidal sinusitis | + + | Chronic maxillary sinusitis | + + documented in this encounter"
--- OUTSIDE RECORDS SUMMARY | ~2019-05-19 | XMS | Encounter Summary ---
Demographics + + + | Address | [address] | | | [place]ELOPMENTAL WRITING IN[place] [address] | + + + | Home Phone | | + + + | Preferred Language | Unknown | + + + | Marital Status | Single | + + + | Restorationism Affiliation | LDS | + + + | Race | White | + + + | Ethnic Group | Not or | + + + Author + + + | Author | [facility] | + + + | Organization | [facility] | + + + | Address | Unknown | + + + | Phone | Unavailable | + + + Support + + + + + | Name | Relationship | Address | Phone | + + + + + | Huber Chen | ECON | [address] | | | | | [place] [address] | | + + + + + Care Team Providers + +------+ + | Care Emergency Generator Mechanic Name | Role | Phone | + +------+ + | Cachorro Maddox DO | PCP | | + +------+ + Encounter Details +--------+ + + + + | Date | Type | Department | Care Team | Description | +--------+ + + + + | 07/21/ | Ancillary | Registration 3181 | Sheldon Rawls MD | | | 2007 | Registratio | [facility] | [address] | | | | n | [address] Mailcode: RPB07 | [facility], [place] | | | | | [place], [place] | [address] | | | | | [address] | [phone] | | | | | [phone] | | | +--------+ + + + [...]
--- OUTSIDE RECORDS SUMMARY | ~2019-05-19 | XMS | Encounter Summary ---
Demographics + + + | Address | [address] | | | ORDER FULFILLMENT SPECIALIST [place] [address] | + + + | Home Phone | | + + + | Preferred Language | Unknown | + + + | Marital Status | Single | + + + | Alevism Affiliation | LDS | + + + | Race | White | + + + | Ethnic Group | Not or | + + + Author + + + | Author | [facility] | + + + | Organization | [facility] | + + + | Address | Unknown | + + + | Phone | Unavailable | + + + Support + + + + + | Name | Relationship | Address | Phone | + + + + + | Huber Chen | ECON | [address] | | | | | [place] [address] | | + + + + + Care Team Providers + +------+ + | Care Functional Architect Name | Role | Phone | + [...] | | | | CENTER [address] | [facility] [place] | | | | | | [place] | [address] | | | | | | PL | Phone: | | | | | | SUE | [phone] | | | | | | [place] [address] | Fax: | | | | | | Phone: | [phone] | | | | | | [phone] | | | | | | | Fax: | | | | | | | [phone] | | +--------+--------+ + + + + Encounter Details +--------+---------+ + + + | Date | Type | Department | Care Team | Description | +--------+---------+ + + + | 08/04/ | Office | [facility] | Dylan Rawls, | Chronic Ethmoidal | | 2007 | Visit | Center at [facility] | MD [address] | Sinusitis; Chronic | | | | [address] | [place], [place] | Maxillary Sinusitis | | | | Mailcode: [place] | [address] | | | | | [facility] | [phone] | | | | | and Healing, | | | | | | [facility] | | | | | | [place], [place] | | | | | | [address] | | | | | | [phone] | | | +--------+---------+ + + + [...] documented as of this encounter Progress Notes Mercedes Montoya - 08/04/2007 2:26 PM PSTHISTORY: Jesusita Chen is a 47 y.o. female who p resents for follow up of sinus surgery. She is not having any significant difficulties. Xavier acevedo denies abnormal bleeding, pain, vision disturbance, clear fluid drainage. She has noticed an improvement in her facial pressure, but is still having some headaches. She continues to use the saline irrigations, flonase and has two more days of her abx. PHYSICAL EXAM: Anterior rhinoscopy reveals crusting in the middle meatus. PROCEDURE: Nasal Endoscopy with Debridement Anesthesia: 4% topical lidocaine Description of procedure: A rigid endoscope was utilized. Crusts were debrided from the s inus cavities bilaterally with retained secretions removed. A salman stent was removed from the left. No adverse synechiae were noted. An area of crusting was noted over the left anter ior septum. IMPRESSION/PLAN: Will continue with medication regimen and follow up is scheduled. We rec ommended that she use some bactroban bilaterally over the areas of crusting. She will call w [facility] any problems in the meantime. I personally interviewed the patient, duplicated the pertinent parts of the physical examin ation and procedure and personally formulated the plan. I have reviewed, entered my finding s, and agree with the above documentation. Dylan Rawls M.D., M.P.H., F.A.C.S. Director, [facility] Professor and Chief, Rhinology and Sinus Surgery Department of Otolaryngology/Head and Neck Surgery documented in this encou nter Plan of Treatment + + +--------+ + + | Name | Type | Priori | Associated Diagnoses | Order Schedule | | | | ty | | | + + +--------+ + + | [facility] | Procedures | Routin | Chronic Ethmoidal | Ordered: 08/06/2007 | | SCOPE,BX/RMV | | e | Sinusitis Chronic | | | POLYP/DEBRID | | | Maxillary Sinusitis | | + + +--------+ + + documented as of this encounter Visit Diagnoses + + | Diagnosis | + + | Chronic ethmoidal sinusitis | + + | Chronic maxillary sinusitis | + + documented in this encounter"
--- OUTSIDE RECORDS SUMMARY | ~2019-05-19 | XMS | Encounter Summary ---
Demographics + + + | Address | [address] | | | [place] [address] | + + + | Home Phone | | + + + | Preferred Language | Unknown | + + + | Marital Status | Single | + + + | Spiritism Affiliation | 1027 | + + + | Race | Unknown | + + + | Ethnic Group | Unknown | + + + Author + + + | Author | [facility] | | | and [place] | + + + | Organization | [facility] | | | [...] Team Providers + +------+ + | Care Hat Mender Name | Role | Phone | + +------+ + | Cachorro Maddox DO | PCP | Unavailable | + +------+ + Reason for Visit + + + | Reason | Comments | + + + | Medication Refill | Rx for Sinus inf? | + + + Encounter Details +--------+--------+ + + + | Date | Type | Department | Care Team | Description | +--------+--------+ + + + | 04/04/ | Refill | [place] [facility] | Cachorro Maddox | Medication Refill | | 2019 | | [facility] | E, DO [address] | (Rx for Sinus inf?) | | | | [facility] | [place], [place] | | | | [address] [place], | [address] | | | | | [place] [address] | [phone] | | | | | [phone] | | | +--------+--------+ + + + [...]
--- OUTSIDE RECORDS SUMMARY | ~2019-05-19 | XMS | Encounter Summary ---
Demographics + + + | Address | [address] | | | [place] [address] | + + + | Home Phone [...] + + | Author | [facility] | | | and [place] | + + + | Organization | [facility] | | | and [...] Team Providers + +------+ + | Care Diploma Pharmacy Technician Name | Role | Phone | + [...] Refill | | 2018 | | [facility] | E, DO [address] | | | | | MEDICAL CL[facility] [address] | [place], [place] | | | | | [address] [place], | [address] | | | | | [place] [address] | [phone] | | | | | [phone] | | | +--------+--------+ + + + [...]
--- OUTSIDE RECORDS SUMMARY | ~2019-05-19 | XMS | Encounter Summary ---
Demographics + + + | Address | [address] | | | [place] [address] | + + + | Home Phone | | + + + | Preferred Language | Unknown | + + + | Marital Status | Single | + + + | Taoism Affiliation | 1027 | + + + | Race | Unknown | + + + | Ethnic Group | Unknown | + + + Author + + + | Author | [facility] | | | and [place] | + + + | Organization | [facility] | | | [...] Team Providers + +------+ + | Care Septic Tank Service Technician Name | Role | Phone | [...] Description | +--------+--------+ + + + | 05/13/ | Refill | [facility] | Cachorro Maddox | Medication Refill | | 2018 | | [facility] | E, DO [address] | | | | | MEDICAL CLINIC [address] | [place], [place] | | | | | [address] [place], | [address] | | | | | [place] [address] | [phone] | | | | | [phone] | | | +--------+--------+ + + + [...]
--- OUTSIDE RECORDS SUMMARY | ~2019-05-19 | XMS | Encounter Summary ---
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 | + + + | Organization | [facility] | + + + | Address | Unknown | + + + | Phone | Unavailable | + + + Support + + + + + | Name | Relationship | Address | Phone | + + + + + | Huber Chen | ECON | [address] | | | | | [place] [address] | | + + + + + Care Team Providers + +------+ + | Care Vascular Surgeon Name | Role | Phone | + [...] Registratio | [address] | [address] | | | | n | [place] Mailcode: RPB07 | [place], [place] | | | | | [place], [place] | [address] | | | | | [address] | [phone] | | | | | [phone] | | | +--------+ + + + [...]
--- OUTSIDE RECORDS SUMMARY | ~2019-05-19 | XMS | Encounter Summary ---
Demographics + + + | Address | [address] | | | COMMODITIES REQUIREMENTS [place] [address] | + + + | Home Phone | | + + + | Preferred Language | Unknown | + + + | Marital Status | Single | + + + | Sikhism Affiliation | LDS | + + + | Race | White | + + + | Ethnic Group | Not or | + + + Author + + + | Author | [facility] | + + + | Organization | [facility] | + + + | Address | Unknown | + + + | Phone | Unavailable | + + + Support + + + + + | Name | Relationship | Address | Phone | + + + + + | Huber Chen | ECON | [address] | | | | | [place] [address] | | + + + + + Care Team Providers + +------+ + | Care Project Inspector Name | Role | Phone | + +------+ + PCP | Unavailable | + +------+ + Encounter Details +--------+ + + + + | Date | Type | Department | Care Team | Description | +--------+ + + + + | 07/29/ | Med | AMBULATORY SURGERY | Dylan Rawls, | | | 2007 | Reconciliat | [address] | [address] | | | | ion | [address] | [place], [place] | | | | | [place] | [address] | | | | | [address] [place], [place] | [phone] | | | | | [address] | | | +--------+ + + + [...]
--- OUTSIDE RECORDS SUMMARY | ~2019-05-19 | XMS | Encounter Summary ---
Demographics + + + | Address | [address] | | | AMBULANCE [place]PATCH[place] [address] | + + + | Home Phone | | + + + | Preferred Language | Unknown | + + + | Marital Status | Single | + + + | Shinto Affiliation | LDS | + + + | Race | White | + + + | Ethnic Group | Not or | + + + Author + + + | Author | [facility] | + + + | Organization | [facility] | + + + | Address | Unknown | + + + | Phone | Unavailable | + + + Support + + + + + | Name | Relationship | Address | Phone | + + + + + | Huber Chen | ECON | [address] | | | | | [place] [address] | | + + + + + Care Team Providers + +------+ + | Care Card Fixer Name | Role | Phone | + +------+ + PCP | Unavailable | + +------+ + Reason for Visit + + + | Reason | Comments | + + + | Medication requested | she would like to be changed from Predforte to another option | + + + Encounter Details +--------+ + + + + | Date | Type | Department | Care Team | Description | +--------+ + + + + | 01/22/ | Telephone | [place] [facility] | Dylan Rawls, | Medication requested | | 2007 | | Center at [facility] [address] | MD [address] | (she would like to | | | | [address] | [place], [place] | be changed from | | | | Mailcode: [facility] | [address] | Predforte to another | | | | [facility] | [phone] | option) | | | | and Healing, | | | | | | [facility] | | | | | | [place], [place] | | | | | | [address] | | | | | | [phone] | | | +--------+ + + + [...]
--- OUTSIDE RECORDS SUMMARY | ~2019-05-19 | XMS | Encounter Summary ---
Demographics + + + | Address | [address] | | | [place] [address] | + + + | Home Phone | | + + + | Preferred Language | Unknown | + + + | Marital Status | Single | + + + | Evangelical Affiliation | LDS | + + + | Race | White | + + + | Ethnic Group | Not or | + + + Author + + + | Author | [facility] | + + + | Organization | [facility] | + + + | Address | Unknown | + + + | Phone | Unavailable | + + + Support + + + + + | Name | Relationship | Address | Phone | + + + + + | Huber Chen | ECON | [address] | | | | | [place] [address] | | + + + + + Care Team Providers + +------+ + | Care City Planner Name | Role | Phone | + +------+ + PCP | Unavailable | + +------+ + Reason for Visit + + + | Reason | Comments | + + + | Discussion | she is still having problems and wanted to see what the plan is | + + + Encounter Details +--------+ + + + + | Date | Type | Department | Care Team | Description | +--------+ + + + + | 12/04/ | Telephone | [place] [facility] | Dylan Rawls, | Discussion (she is | | 2007 | | Center at [facility] [address] | MD [address] | still having | | | | [address] | [place], [place] | problems and wanted | | | | Mailcode: [facility] | [address] | to see what the plan | | | | [facility] | [phone] | is) | | | | and Healing, | | | | | | [facility] | | | | | | [place], [place] | | | | | | [address] | | | | | | [phone] | | | +--------+ + + + [...]
--- OUTSIDE RECORDS SUMMARY | ~2019-05-19 | XMS | Encounter Summary ---
Demographics + + + | Address | [address] | | | ABSTRACT CHECK[place] [address] | + + + | Home Phone | | + + + | Preferred Language | Unknown | + + + | Marital Status | Single | + + + | Yarsani Affiliation | LDS | + + + [...] | | | | | [place] [address] | | + + + + + Care Team Providers + +------+ + | Care Electric Stove Installer Name | Role | Phone | + +------+ + PCP | Unavailable | + +------+ + Reason for Visit + + + | Reason | Comments | + + + | Refill Request | | + + + Encounter Details +--------+--------+ + + + | Date | Type | Department | Care Team | Description | +--------+--------+ + + + | 06/01/ | Refill | [place] [facility] | Dylan Rawls, | Refill Request | | 2006 | | [place] [facility] [address] | [address] | | | | | [address] | [place], [place] | | | | | Mailcode: CH5E | [address] | | | | | [facility] | [phone] | | | | | and Healing, | | | | | | Building [address] | | | | | | Floor [place], [place] | | | | | | [address] | | | | | | [phone] | | | +--------+--------+ + + + [...] | + +--------+ + + + | CT SINUS WO CONTRAST | Routin | 07/21/2007 | Chronic Ethmoidal | Results for this | | ROUTINE | e | 12:27 PM | Sinusitis Chronic | procedure are in the | | | | PST | Sinusitis | results section. | + +--------+ + + + documented in this encounter Results CT SINUS LANDMARX PROTOCOL WO (07/21/2007 12:27 PM PST) + + + + + + | Component | Value | Ref Range | Performed | Pathologist | | | | | At | Signature | + + + + + + | CT SINUS | Radiologist 1: [place], | | | | | [place] | Yess[facility] LOPEZCT sinuses | | | | | PROTOCOL WO | [place] | | | | | | protocolHISTORY: | | | | | | SinusitisTECHNIQUE: | | | | | | Direct axial and direct | | | | | | coronal noncontrast | | | | | | images wereacquired | | | | | | through the sinuses and | | | | | | reviewed at 3mm | | | | | | thickness andspacing. | | | | | | Thin axial images were | | | | | | also | | | | | | formatted.COMPARISON: No | | | | | | relevant | | | | | | priorsFINDINGS:There is | | | | | | minimal dependent fluid | | | | | | or mucosal thickening in | | | | | | theright frontal sinus, | | | | | | and trace right | | | | | | maxillary sinus | | | | | | mucosalthickening. The | | | | | | right-sided paranasal | | | | | | sinuses are | | | | | | otherwiseclear. The | | | | | | maxillary infundibula is | | | | | | patent.The nasal septum | | | | | | is deviated to the | | | | | | left, and there is a | | | | | | leftwarddirected nasal | | | | | | spur which contacts the | | | | | | left inferior | | | | | | turbinate.The left | | | | | | maxillary sinus is | | | | | | markedly atelectatic, | | | | | | and what remainsof the | | | | | | sinus is completely | | | | | | opacified. The | | | | | | infundibulum | | | | | | appearsobstructed. | | | | | | There is trace | | | | | | dependent fluid or | | | | | | mucosal thickeningin the | | | | | | left frontal sinus. | | | | | | There is trace mucosal | | | | | | thickening inthe left | | | | | | sphenoid.IMPRESSION: . | | | | | | Atelectatic , | | | | | | opacified left maxillary | | | | | | sinus2. Trace mucosal | | | | | | thickening and the left | | | | | | sphenoid, | | | | | | rightmaxillary, and | | | | | | minimal dependent | | | | | | mucosal thickening or | | | | | | fluid inbilateral | | | | | | inferior frontal | | | | | | sinuses.3. Leftward | | | | | | nasal septal spur and | | | | | | nasal septal deviation. | | | | + + + + + + + + | Specimen | + + | | + + + +---------+ + + | Performing | Address | City[facility] | Phone Number | | Organization | | | | + +---------+ + + | [facility] | | | | | RADIOLOGY | | | | + +---------+ + + documented in this encounter Visit Diagnoses + + | Diagnosis | + + | Chronic ethmoidal sinusitis | + + | Chronic sinusitis Unspecified sinusitis (chronic) | + + documented in this encounter"
--- OUTSIDE RECORDS SUMMARY | ~2019-05-19 | XMS | Encounter Summary ---
Demographics + + + | Address | [address] | | | [place]PER[place] [address] | + + + | Home Phone | | + + + | Preferred Language | Unknown | + + + | Marital Status | Single | + + + | Taoism Affiliation | LDS | + + + | Race | White | + + + | Ethnic Group | Not or | + + + Author + + + | Author | [facility] | + + + | Organization | [facility] | + + + | Address | Unknown | + + + | Phone | Unavailable | + + + Support + + + + + | Name | Relationship | Address | Phone | + + + + + | Huber Chen | ECON | [address] | | | | | [place] [address] | | + + + + + Care Team Providers + +------+ + | Care Pipelines Superintendent Name | Role | Phone | + +------+ + PCP | Unavailable | + +------+ + Reason for Visit + + + | Reason | Comments | + + + | Discussion | pt would like a note/papers about her sinus problems for work. | | | Please give her a call. thank you. | + + + Encounter Details +--------+ + + + + | Date | Type | Department | Care Team | Description | +--------+ + + + + | 07/17/ | Telephone | [place] [facility] | Dylan Rawls, | Discussion (pt would | | 2007 | | Center at [facility] [address] | MD [address] | like a note/papers | | | | [address] | [place], [place] | about her sinus | | | | Mailcode: [facility] | [address] | problems for work. | | | | [facility] | [phone] | Please give her a | | | | and Healing, | | call. thank you.) | | | | Building | | | | | | [place], [place] | | | | | | [address] | | | | | | [phone] | | | +--------+ + + + [...]
--- OUTSIDE RECORDS SUMMARY | ~2019-05-19 | XMS | Encounter Summary ---
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 feels that it is the Flonase tht is causing her headaches | | effects present | | + + + Encounter Details +--------+ + + + + | Date | Type | Department | Care Team | Description | +--------+ + + + + | 01/01/ | Telephone | [place] [facility] | Dylan Rawls, | Medication side | | 2008 | | Center at [facility] [address] | MD [address] | effects present (pt. | | | | [address] | [place], [place] | feels that it is | | | | Mailcode: [facility] | [address] | the Philipe tht is | | | | [facility] | [phone] | causing her | | | | and Healing, | | headaches ) | | | | Building [address] | | | | | | Floor [place], [place] | | | | | | [address] | | | | | | [phone] | | | +--------+ + + + [...]
--- OUTSIDE RECORDS SUMMARY | ~2019-05-19 | XMS | Encounter Summary ---
Demographics + + + | Address | [address] | | | [place]TROTOR [place] [address] | + + + | Home Phone [...] Author + + + | Author | [facility] | + + + | Organization | [facility] | + + + | Address | Unknown | + + + | Phone | Unavailable | + + + Support + + + + + | Name | Relationship | Address | Phone | + + + + + | Huber Chen | ECON | [address] | | | | | [place] [address] | | + + + + + Care Team Providers + +------+ + | Care Clinical Resource Director Name | Role | Phone | + [...] + + | 08/29/ | Telephone | [place] [facility] | Dylan Rawls, | Sinusitis (she has | | 2007 | | Center at [facility] [address] | MD [address] | another sinus | | | | [address] | [place], [place] | infection and would | | | | Mailcode: [facility] | [address] | like to get a return | | | | [facility] | [phone] | call) | | | | and Healing, | | | | | | [facility] , | | | | | | [place], [place] | | | | | | [address] | | | | | | [phone] | | | +--------+ + + + [...]
--- OUTSIDE RECORDS SUMMARY | ~2019-05-19 | XMS | Encounter Summary ---
Demographics + + + | Address | [address] | | | [place] [address] | + + + | Home Phone | | + + + | Preferred Language | Unknown | + + + | Marital Status | Single | + + + | Rastafari Affiliation | LDS | + + + | Race | White | + + + | Ethnic Group | Not or | + + + Author + + + | Author | [facility] | + + + | Organization | [facility] | + + + | Address | Unknown | + + + | Phone | Unavailable | + + + Support + + + + + | Name | Relationship | Address | Phone | + + + + + | Huber Chen | ECON | [address] | | | | | [place] [address] | | + + + + + Care Team Providers + +------+ + | Care Chefs Name | Role | Phone | + +------+ + PCP | Unavailable | + +------+ + Reason for Visit + + + | Reason | Comments | + + + | Follow-up visit | | + + + Office Visit - E/M Services (Routine) +--------+--------+ + + + + | Status | Reason | Specialty | Diagnoses / | Referred By | Referred To | | | | | Procedures | Contact | Contact | +--------+--------+ + + + + | Closed | | Otolaryngolog | | Chas, | Curly, | | | | y | | Eda Kelly, | Dylan Falcon MD | | | | | | MD ALLERGY | [address] | | | | | [address] | [address] | | | | | | [place] [address] | [place], [place] | | | | | | [place] | [address] | | | | | | PL | Phone: | | | | | | SUE, | [phone] | | | | | | [place] [address] | Fax: | | | | | | Phone: | [phone] | | | | | | [phone] | | | | | | | Fax: | | | | | | | [phone] | | +--------+--------+ + + + + Encounter Details +--------+---------+ + + + | Date | Type | Department | Care Team | Description | +--------+---------+ + + + | 12/21/ | Office | [facility] | Mercedes Montoya, | Chronic Ethmoidal | | 2008 | Visit | Center at [facility] [address] | PA-C [address] | Sinusitis; Chronic | | | | [address] | [place], [place] | Maxillary Sinusitis | | | | Mailcode: [id number] | [address] | | | | | [facility] | [phone] | | | | | and Healing, | | | | | | Building | | | | | | Floor [place], [place] | | | | | | [address] | | | | | | [phone] | | | +--------+---------+ + + + [...] of this encounter Progress Notes Mercedes Montoya PA - 12/26/2008 2:25 PM PDTFormatting of this note might be different fr om the original. HISTORY: Jesusita Chen is a 48 y.o. female who presents to the [facility] for fol low up of Chronic rhinosinusitis and S/P Sinus Surgery on 07/29/2007. She is feeling well wi thout significant difficulties. No associated symptoms are present. She denies abnormal di scharge, pain, or unusual bleeding. She is using Flonase, pred forte and saline irrigations on a daily basis. Current outpatient prescriptions Medication Sig fluticasone (FLONASE) 50 mcg/Actuation Nasal [place], Suspension Instill 2 Sprays into ea ch nostril once daily. Omeprazole (PRILOSEC) 20 mg Oral Capsule, Delayed Release(E.C.) take 1 capsule (20 mg) by oral route once daily before a meal prednisoLONE acetate (PRED FORTE) 1 % Ophthalmic Drops, Suspension Instill into both ey es. Use three drops in each NOSTRIL BID prednisoLONE acetate 1 % Ophthalmic Drops, Suspension Instill in nose. Three drops in each nostril BID. PHYSICAL EXAM: Ear, nose, and throat exam reveals a pleasant, well-developed, well-nourish ed patient, in no apparent distress. Voice quality is within normal limits. Anterior rhinos copy reveals mucosa with no significant signs of erythema or inflammation. No polyps or pur ulence are noted. External auditory canals and tympanic membranes appear normal. Oral cavity and oropharynx reveals no mucosal lesion. The pharyngeal mucosa reveals no le sions. Lips and tongue are within normal limits. Neck reveals no mass, adenopathy, or thyr omegaly. Salivary glands are normal to palpation. PROCEDURE: Diagnostic Nasal Endoscopy Anesthesia: Lidocaine 4% topical anesthetic was placed. Description of Procedure: A rigid endoscope was utilized to evaluate the sinonasal cavitie s, mucosa, sinus ostia and turbinates. Overall, mucosal inflammation is observed with no ev idence of mucostasis or purulent drainage. ASSESSMENT: Chronic rhinosinusitis PLAN: Continue with current therapies. She was given a refill for the pred forte drops tocolette caballero. Return for follow up in 4 months or sooner as needed. documented in this e ncounter Plan of Treatment + + +--------+ + + | Name | Type | Priori | Associated Diagnoses | Order Schedule | | | | ty | | | + + +--------+ + + | AK NASAL | Procedures | Routin | Chronic Maxillary | Ordered: 12/26/2008 | | ENDOSCOPY,DX | | e | Sinusitis Chronic | | | | | | Ethmoidal Sinusitis | | + + +--------+ + + documented as of this encounter Visit Diagnoses + + | Diagnosis | + + | Chronic ethmoidal sinusitis | + + | Chronic maxillary sinusitis | + + documented in this encounter"
--- OUTSIDE RECORDS SUMMARY | ~2019-05-19 | XMS | Clinical Summary ---
Demographics + + + | Address | [address] | | | [place] [address] | + + + | Home Phone | | + + + | Preferred Language | Unknown | + + + | Marital Status | Single | + + + | Confucianist Affiliation | LDS | + + + | Race | White | + + + | Ethnic Group | Not or | + + + Author + + + | Author | [facility] | + + + | Organization | [facility] | + + + | Address | Unknown | + + + | Phone | Unavailable | + + + Support + + + + + | Name | Relationship | Address | Phone | + + + + + | Huber Chen | ECON | [address] | | | | | [place] [address] | | + + + + + Care Team Providers + +------+ + | Care Decorator Store Name | Role | Phone | + +------+ + | Cachorro Maddox DO | PCP | | + +------+ + Source Comments APOLINAR is fully live on both [facility] Ambulatory and [facility] InPatient.[facility] Allergies No Known Allergies Medications + + + +---------+------+------+-------+ | Medication | Sig | Dispensed | Refills | Star | End | Statu | | | | | | t | Date | s | | | | | | Date | | | + + + +---------+------+------+-------+ | Omeprazole | take 1 capsule (20 | | 0 | | | Activ | | (PRILOSEC) 20 mg | mg) by oral route | | | | | e | | Oral Capsule, | once daily before a | | | | | | | Delayed | meal | | | | | | | Release(E.C.) | | | | | | | + + + +---------+------+------+-------+ | prednisoLONE | Instill into both | 15 ml | 6 | 01/0 | | Activ | | acetate (PRED FORTE) | eyes. Use three | | | 9/20 | | e | | 1 % Ophthalmic | drops in each | | | 09 | | | | Drops, Suspension | NOSTRIL BID | | | | | | + + + +---------+------+------+-------+ | fluticasone | Instill 2 Sprays | 1 | 6 | 04/1 | | Activ | | (FLONASE) 50 | into each nostril | | | 7/20 | | e | | mcg/Actuation Nasal | once daily. | | | 09 | | | | [place], Suspension | | | | | | | + + + +---------+------+------+-------+ | prednisoLONE | Instill in nose. | 15 ml | 6 | 06/0 | | Activ | | acetate 1 % | Three drops in each | | | 5/20 | | e | | Ophthalmic Drops, | nostril BID. | | | 09 | | | | Suspension | | | | | | | + + + +---------+------+------+-------+ | clindamycin 1 % | Apply to affected | 60 mL | 5 | 12/2 | | Activ | | topical lotion | area two times | | | 1/20 | | e | | | daily. Apply a thin | | | 15 | | | | | film to the affected | | | | | | | | area. | | | | | | + + + +---------+------+------+-------+ Active Problems + + + | Problem | Noted Date | + + + | Chronic maxillary sinusitis | 07/21/2007 | + + + Social History + +-------+ [...] | | + + + + + Plan of Treatment + + + + + | Health Maintenance | Due Date | Last Done | Comments | + + + + + | Influenza (Flu) | | | | | vaccination (#1) | 9 | | | + + + + + | Pneumococcal | Aged Out | | No longer eligible | | vaccination | | | based on patient's | | | | | age to complete this | | | | | topic | + + + + + Results Not on filefrom Last 3 Months Insurance + +--------+ +--------+-------+---------+--------+ | Payer | Benefi | Subscriber | Effect | Phone | Address | Type | | | t Plan | ID | nikolas | | | | | | / | | Dates | | | | | | Group | | | | | | + +--------+ +--------+-------+---------+--------+ | DOPE HOUSE OPERATOR HELPER MEDICAID | DOPE HOUSE OPERATOR HELPER | xxxxxxxx | Effect | | | Medica | | | [place]AST[place] | | nikolas | | | id | | | [place] | | for | | | | | | | | all | | | | | | | | dates | | | | + +--------+ +--------+-------+---------+--------+ + +--------+ +--------+ + + | Guarantor Name | Accoun | Relation to | Date | Phone | Billing Address | | | t Type | Patient | of | | | | | | | | | | + +--------+ +--------+ + + | Jesusita Chen | Person | Self [birth year] | [address] | | | al/Fam | | 1960 | [phone] | [place] [address] | | | [place] | | | 3 (Home) | | + +--------+ +--------+ + + | Jesusita Chen | Person | Self [birth year] | [address] | | | al/Fam | | 1960 | [phone] | [place] [address] | | | izaiah | | | 3 (Home) | | + +--------+ +--------+ + + Advance Directives + + + + + | Type | Date Recorded | Patient | Explanation | | | | Orange Grower | | + + + + + | Advance | | | | | Directives and | | | | | Living Will | | | | + + + + + | Power of | | | | | Cable Way Operator | | | | + + + + +
--- OUTSIDE RECORDS SUMMARY | ~2019-05-19 | XMS | Encounter Summary ---
Demographics + + + | Address | [address] | | | [place] [address] | + + + | Home Phone | | + + + | Preferred Language | Unknown | + + + | Marital Status | Single | + + + | Latter-Day Affiliation | LDS | + + + | Race | White | + + + | Ethnic Group | Not or | + + + Author + + + | Author | [facility] | + + + | Organization | [facility] | + + + | Address | Unknown | + + + | Phone | Unavailable | + + + Support + + + + + | Name | Relationship | Address | Phone | + + + + + | Huber Chen | ECON | [address] | | | | | [place] [address] | | + + + + + Care Team Providers + +------+ + | Care Turbinated Bone Grinder Name | Role | Phone | + [...] + + | 06/01/ | Refill | [facility] | Dylan Rawls, | Refill Request | | 2006 | | [place] [facility] [address] | [address] | | | | | [address] | [place], [place] | | | | | Mailcode: [id number] | [address] | | | | | [facility] | [phone] | | | | | and Healing, | | | | | | Building [address], [address]th | | | | | | Floor [place], [place] | | | | | | [address] | | | | | | [phone] | | | +--------+--------+ + + + [...] | | | | PROTOCOL WO | [place] | | | | | | protocolHISTORY: [...] + + | Performing | Address | City[facility] | Phone Number | | Organization [...]
--- OUTSIDE RECORDS SUMMARY | ~2019-05-19 | XMS | Encounter Summary ---
Demographics + + + | Address | [address] | | | [place] [address] | + + + | Home Phone [...] + + + | Author | [facility] | + + + | Organization | [facility] | + + + | Address | Unknown | + + + | Phone | Unavailable | + + + Support + + + + + | Name | Relationship | Address | Phone | + + + + + | Huber Chen | ECON | [address] | | | | | [place] [address] | | + + + + + Care Team Providers + +------+ + | Care Patient Accounts Coordinator Name | Role | Phone | + +------+ + PCP | Unavailable | + +------+ + Encounter Details +--------+ + + + + | Date | Type | Department | Care Team | Description | +--------+ + + + + | 05/09/ | Results | All[facility] Clinic at | Av Puri MD | | | 1995 | Only | [facility] [address] | | | | | | [address] | | | | | | Mailcode: [id number] | | | | | | [place] | | | | | | [place] | | | | | | [place] [address] | | | | | | [phone] | | | +--------+ + + + [...] + +--------+ + + + | CT SINUSITIS SCREEN | Routin | 05/09/1996 | | Results for this | | | e | 1:35 PM | | procedure are in the | | | | PDT | | results section. | + +--------+ + + + documented in this encounter Results CT SINUSITIS SCREEN (05/09/1996 1:35 PM PDT) + + + + + + | Component | Value | Ref Range | Performed | Pathologist | | | | | At | Signature | + + + + + + | CT | Radiologist 1: ROB | | | | | SINUSITIS | [facility]-Radiologist | | | | | SCREEN | 2: RONNY BLACK | | | | | | GABRIELLA ORTIZ | | | | | | | | | | | | | | | | | | [id number] | | | | | | PARANASAL SINUS CT on | | | | | | 05/09/96Dictated on | | | | | | 05/11/96 PROCEDURE: | | | | | | Standard 3 mm coronal | | | | | | images obtained. 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 Amoderate | | | | | | amount of soft tissue | | | | | | density is evident | | | | | | within the sinus.The | | | | | | possibility of an air | | | | | | fluid level cannot be | | | | | | excluded. The remaining | | | | | | visualized paranasal | | | | | | sinuses are clear. The | | | | | | nasalseptum deviates | | | | | | towards the left. The | | | | | | sella and | | | | | | retropharyngeal spaces | | | | | | are normal. 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 The | | | | | | possibility of anair | | | | | | fluid level within the | | | | | | sinus cannot be | | | | | | excluded. END OF | | | | | | IMPRESSION: | | | | + + + [...]
--- OUTSIDE RECORDS SUMMARY | ~2019-05-19 | XMS | Encounter Summary ---
Demographics + + + | Address | [address] | | | [place] [address] | + + + | Home Phone | | + + + | Preferred Language | Unknown | + + + | Marital Status | Single | + + + | Religion Affiliation | LDS | + + + | Race | White | + + + | Ethnic Group | Not or | + + + Author + + + | Author | [facility] | + + + | Organization | [facility] | + + + | Address | Unknown | + + + | Phone | Unavailable | + + + Support + + + + + | Name | Relationship | Address | Phone | + + + + + | Huber Chen | ECON | [address] | | | | | [place] [address] | | + + + + + Care Team Providers + +------+ + | Care Airframe Design Engineer Name | Role | Phone | + +------+ + PCP | Unavailable | + +------+ + Reason for Visit + + + | Reason | Comments | + + + | Discussion | Pt has sinus pain, and headaches. would like to speak with | | | Mercedes. | + + + Encounter Details +--------+ + + + + | Date | Type | Department | Care Team | Description | +--------+ + + + + | 08/24/ | Telephone | [facility] | Mercedes Montoya, | Discussion (Pt has | | 2008 | | Center at [facility] [address] | [place]ER[place] [address] | sinus pain, and | | | | [address] | Ave [place], [place] | headaches. would | | | | Mailcode: [facility] | [address] | like to speak with | | | | [facility] | [phone] | ) | | | | and Healing, | | | | | | Building | | | | | | [place], [place] | | | | | | [address] | | | | | | [phone] | | | +--------+ + + + [...]
--- OUTSIDE RECORDS SUMMARY | ~2019-05-19 | XMS | Encounter Summary ---
Demographics + + + | Address | [address] | | | [place] [address] | + + + | Home Phone | | + + + | Preferred Language | Unknown | + + + | Marital Status | Single | + + + | Mandaen Affiliation | 1027 | + + + [...] Team Providers + +------+ + | Care Windows Laptop Technician Name | Role | Phone | [...] | | [address] [place], | [address] | | | | | [place] [address] | [phone] | | | | | [phone] | | | +--------+ + + + [...]
--- OUTSIDE RECORDS SUMMARY | ~2019-05-19 | XMS | Encounter Summary ---
Demographics + + + | Address | [address] | | | [place] [address] | + + + | Home Phone | | + + + | Preferred Language | Unknown | + + + | Marital Status | Single | + + + | Baptism Affiliation | LDS | + + + | Race | White | + + + | Ethnic Group | Not or | + + + Author + + + | Author | [facility] | + + + | Organization | [facility] | + + + | Address | Unknown | + + + | Phone | Unavailable | + + + Support + + + + + | Name | Relationship | Address | Phone | + + + + + | Huber Chen | ECON | [address] | | | | | [place] [address] | | + + + + + Care Team Providers + +------+ + | Care Director Public Policy Name | Role | Phone | + +------+ + PCP | Unavailable | + +------+ + Reason for Visit + + + | Reason | Comments | + + + | Pre-op evaluation | Pt. states she is here for pre op appointment | + + + | Pre-op evaluation | | + + + Office Visit - E/M Services (Routine) +--------+--------+ + + + + | Status | Reason | Specialty | Diagnoses / | Referred By | Referred To | | | | | Procedures | Contact | Contact | +--------+--------+ + + + + | Closed | | Otolaryngolog | | Vatkofi, | Curly, | | | | y | | Eda Kelly, | Dylan Falcon MD | | | | | | ALLERGY | [address] | | | | | | [address] | [address] | | | | | | [place] [address] | [place], [place] | | | | | | [facility] | [address] | | | | | | [address] | Phone: | | | | | | SUE | [phone] | | | | | | [place] [address] | Fax: | | | | | | Phone: | [phone] | | | | | | [phone] | | | | | | | Fax: | | | | | | | [phone] | | +--------+--------+ + + + + Encounter Details +--------+---------+ + + + | Date | Type | Department | Care Team | Description | +--------+---------+ + + + | 07/21/ | Office | [facility] | Dylan Rawls, | Nasal Septal | | 2007 | Visit | Center at [facility] [address] | [address] | Deviation; Chronic | | | | [address] | [place], [place] | Maxillary Sinusitis; | | | | Mailcode: [facility] | [address] | Chronic Ethmoidal | | | | [facility] | [phone] | Sinusitis; Chronic | | | | and Healing, | | Maxillary Sinusitis | | | | Building 1, 5th | | | | | | Floor [place], [place] | | | | | | [address] | | | | | | [phone] | | | +--------+---------+ + + + [...] + + documented as of this encounter Patient Instructions Patient Instructions John Arroyo - 07/21/2007 1:55 PM PSTRegistration Locations (please check in at one of the following registration desks prior to surgery) For surgeries scheduled to take place on the [place] at the [facility]: Surgeries scheduled in the [facility] ([address] [place] [address]): registration is located on the 4th floor of [facility] (Day Surgery). Surgeries scheduled in the [facility]: registration is located on the 9th floor. Surgeries scheduled in [facility]: registration is located on the 6th floor. Surgeries scheduled in the [facility]: registration is located i n the [facility] on the first floor. For surgeries scheduled to take place at the [facility]: registration is l ocated on the 4th floor (Surgery Center). Registration Process for all Admissions/Surgeries Please bring your insurance card(s) with you and be prepared to pay any co-payment, co-insu wandy or deposit that may be required. Once you arrive at the registration desk, you will be interviewed by a Patient Access Servi ce Specialist (PAS). Demographics will be verified (example: name, date of , Social Se curity Number, address, insurance). You will be asked to sign some paperwork: Terms and Conditions of Service, Notice of Privac y Practices Acknowledgement and Genetic Testing Opt Out. You will be given some paperwork: copies of any forms signed by you, Patient Rights, Respon sibilities and Safety, Understanding Advance Directives, and Smoking Cessation Brochure. documented in this encounter Progress Notes John Arroyo - 07/21/2007 1:55 PM PST HISTORY: History of MALCOLM, facial pressure and pain. Still with intermittent symptoms of sinus pressure. No other medical problems or new complaints. Jesusita Chen is a 47 y.o. female who presents to the [facility] at the request of Dr. Doherty in consultation for Chronic L maxillary rhinosinusitis. Current symptoms include nasal congestion, rhinorrhea, headache, facial pain, facial pressure and fatigue. The press ure and headaches are not localized to one area; rather, she feels them all over her face an d head. Symptoms began 3 years ago. Symptom severity is moderate. Improvement occurred with antibiotics. Additional evaluation has included CT scan sinuses performed 10/2006 in [facility]. CURRENT PROBLEM LIST: There is no problem list on file for this patient. Past Medical History Diagnosis Date Sinus Infection Heartburn No past surgical history on file. MEDICATIONS: Current outpatient prescriptions Medication Sig Dispense Refill Omeprazole (PRILOSEC) 20 mg Oral Capsule, Delayed Release(E.C.) take 1 capsule (20 mg) by oral route once daily before a meal Triamcinolone Acetonide (NASACORT AQ) 55 mcg Nasal Aerosol, [place] inhale 1 spray in eac h nostril by intranasal route once daily Sodium Bicarb-Sodium Chloride (AYR SINUS RINSE) Nasal Kit None Entered Mucinex started by PCP recently. No Known Allergies. FAMILY HISTORY: No family history on file. REVIEW OF SYSTEMS: Acid reflux. No heart, lung, kidney problems. PHYSICAL EXAM: VITALS: There were no vitals taken for this visit. HEENT: Normal NECK: Normal CHEST/LUNGS: Normal PROVISIONAL DIAGNOSIS: Chronic sinusitis, septal deviation, turbinate hypertrophy. Discuss ed options including medical and surgical therapies. Discussed risks benefits and alternati ves at length. I have answered all questions. PLANNED COURSE OF ACTION: To OR for left endoscopic sinus surgery, septoplasty, and inferio r turbinate reduction. PARQ: A PARQ session was held, additional questions with discussion were completed. The role of nasal/sinus surgery and septoplasty/turbinate surgery was discussed. Risks inc luding anesthetic, bleeding, infection, olfactory dysfunction, recurrence of symptoms, septa l perforation and injury to associated structures including the orbit and cranial cavity, am ivone others, were discussed and all questions answered. The need for postoperative care incl uding debridement and ongoing medical management was discussed. After considering risks, be nefits, and alternatives, surgical management was elected. We have reviewed the sinus surgery teaching materials including the use of medications arou nd the time of surgery, avoidance of blood thinning agents, use of irrigation and other luciana operative instructions. Total face to face time in the clinic today was at least 15 minutes with more than half of the time spent in counseling. I personally interviewed the patient, duplicated the pertinent parts of the physical examin ation and procedure and personally formulated the plan. I have reviewed, entered my finding s, and agree with the above documentation. Dylan Rawls M.D., M.P.H., F.A.C.S. Director, [facility] Professor and Chief, Rhinology and Sinus Surgery Department of Otolaryngology/Head and Neck Surgery documented in this encou nter Plan of Treatment Not on filedocumented as of this encounter Visit Diagnoses + + | Diagnosis | + + | Nasal septal deviation Deviated nasal septum | + + | Chronic maxillary sinusitis | + + | Chronic ethmoidal sinusitis | + + documented in this encounter"
--- OUTSIDE RECORDS SUMMARY | ~2019-05-19 | XMS | Encounter Summary ---
Demographics + + + | Address | [address] | | | [place] [address] | + + + | Home Phone | | + + + | Preferred Language | Unknown | + + + | Marital Status | Single | + + + | Scientology Affiliation | LDS | + + + | Race | White | + + + | Ethnic Group | Not or | + + + Author + + + | Author | [facility] | + + + | Organization | [facility] | + + + | Address | Unknown | + + + | Phone | Unavailable | + + + Support + + + + + | Name | Relationship | Address | Phone | + + + + + | Huber Chen | ECON | [address] | | | | | [place] [address] | | + + + + + Care Team Providers + +------+ + | Care Direct Chill Caster Name | Role | Phone | + [...] + + | 12/04/ | Telephone | [facility] | Dylan Rawls, | Discussion (she is | | 2007 | | Center at [facility] [address] | MD [address] | still having | | | | [address] | [place], [place] | problems and wanted | | | | Mailcode: [facility] | [address] | to see what the plan | | | | [facility] | [phone] | is) | | | | and Healing, | | | | | | [facility] | | | | | | [place], [place] | | | | | | [address] | | | | | | [phone] | | | +--------+ + + + [...]
--- OUTSIDE RECORDS SUMMARY | ~2019-05-19 | XMS | Encounter Summary ---
Demographics + + + | Address | [address] | | | [place] [address] | + + + | Home Phone | | + + + | Preferred Language | Unknown | + + + | Marital Status | Single | + + + | Denominational Affiliation | LDS | + + + | Race | White | + + + | Ethnic Group | Not or | + + + Author + + + | Author | [facility] | + + + | Organization | [facility] | + + + | Address | Unknown | + + + | Phone | Unavailable | + + + Support + + + + + | Name | Relationship | Address | Phone | + + + + + | Huber Chen | ECON | [address] | | | | | [place] [address] | | + + + + + Care Team Providers + +------+ + | Care Fur Vault Attendant Name | Role | Phone | + [...] Ave | | | | | | [address] | [place], [place] | | | | | | [address] | [address] | | | | | | PL | Phone: | | | | | | S[place], | [phone] | | | | | | [place] [address] | Fax: | | | | | | Phone: | [phone] | | | | | | [phone] | | | | | | | Fax: | | | | | | | [phone] | | +--------+--------+ + + + + Encounter Details +--------+---------+ + + + | Date | Type | Department | Care Team | Description | +--------+---------+ + + + | 09/21/ | Office | [facility] | Mercedes Montoya, | Chronic Ethmoidal | | 2008 | Visit | Center at [facility] [address] | PA-C [address] | Sinusitis; Chronic | | | | [address] | Ave [place], [place] | Maxillary Sinusitis | | | | Mailcode: [id number] | [address] | | | | | [facility] | [phone] | | | | | and Healing, | | | | | | Building | | | | | | Floor [place], [place] | | | | | | [address] | | | | | | [phone] | | | +--------+---------+ + + + [...] encounter Progress Notes Mercedes Montoya PA - 09/21/2008 1:34 PM PSTFormatting of this note might be different fr om the original. HPI: Jesusita Chen is a 48 y.o. female who presents to the [facility] for follow up of Chronic rhinosinusitis and S/P Sinus Surgery. Current symptoms include headache and f acial pain. Symptoms have been off and on for the last year. Symptom severity is moderate. She is using daily saline irrigations and pred forte. Current outpatient prescriptions Medication Sig Albuterol 90 mcg/Actuation Inhalation Aerosol Inhale 1-2 Puffs every four hours as need ed amoxicillin-clavulanate (AUGMENTIN) 875-125 mg Oral Tablet Take 1 Tab by mouth every tw elve hours. methylPREDNISolone (MEDROL (SANDRA)) 4 mg Oral Tablets, Dose Pack Take 1 Package by mouth once daily. Follow package directions. Omeprazole (PRILOSEC) 20 mg Oral Capsule, Delayed Release(E.C.) take 1 capsule (20 mg) by oral route once daily before a meal prednisoLONE acetate (PRED FORTE) 1 % Ophthalmic Drops, Suspension Instill into both ey es. Use three drops in each NOSTRIL BID PHYSICAL EXAM: Ear, nose, and throat exam reveals a pleasant, well-developed, well-nourish ed patient, in no apparent distress. Voice quality is within normal limits. External audit ory canals and tympanic membranes appear normal. Anterior rhinoscopy reveals mucosal edema. Oral cavity and oropharynx reveals healthy mucosa. The pharyngeal mucosa reveals no lesio ns. Lips and tongue are within normal limits. Neck reveals no mass, adenopathy, or thyromeg liane. Salivary glands are normal to palpation. PROCEDURE: Diagnostic Nasal Endoscopy Anesthesia: Lidocaine 4% topical anesthetic Description of Procedure: A rigid endoscope was utilized to evaluate the sinonasal cavities , mucosa, sinus ostia and turbinates. Overall, signs of mucosal inflammation are noted. ASSESSMENT: Chronic rhinosinusitis. We've discussed issues and options today. The risks, benefits and alternatives were discus sed and questions answered. The patient has elected to proceed with a trial of Rhinocort an d continue with the irrigations and pred forte. She will return for follow up in 2 month(s). documented in this e ncounter Plan of Treatment + + +--------+ + + | Name | Type | Priori | Associated Diagnoses | Order Schedule | | | | ty | | | + + +--------+ + + | [place] [facility] | Procedures | Routin | Chronic Ethmoidal | Ordered: 09/26/2008 | | ENDOSCOPY,DX | | e | Sinusitis Chronic | | | | | | Maxillary Sinusitis | | + + +--------+ + + | [place] [facility] | Procedures | Routin | Chronic Ethmoidal | Ordered: 09/26/2008 | | ENDOSCOPY,DX | | e | Sinusitis Chronic | | | | | | Maxillary Sinusitis | | + + +--------+ + + documented as of this encounter Visit Diagnoses + + | Diagnosis | + + | Chronic ethmoidal sinusitis | + + | Chronic maxillary sinusitis | + + documented in this encounter"
--- OUTSIDE RECORDS SUMMARY | ~2019-05-19 | XMS | Encounter Summary ---
Demographics + + + | Address | [address] | | | ASSESS[place] [address] | + + + | Home Phone | | + + + | Preferred Language | Unknown | + + + | Marital Status | Single | + + + | Amish Affiliation | LDS | + + + | Race | White | + + + | Ethnic Group | Not or | + + + Author + + + | Author | [facility] | + + + | Organization | [facility] | + + + | Address | Unknown | + + + | Phone | Unavailable | + + + Support + + + + + | Name | Relationship | Address | Phone | + + + + + | Huber Chen | ECON | [address] | | | | | [place] [address] | | + + + + + Care Team Providers + +------+ + | Care Fuel Agent Name | Role | Phone | + +------+ + PCP | Unavailable | + +------+ + Encounter Details +--------+ + + + + | Date | Type | Department | Care Team | Description | +--------+ + + + + | 06/01/ | Telephone | [facility] | Mercedes Montoya, | | | 2006 | | Center at [facility] [address] | [place] [address] | | | | | [address] | [place] [facility] [place] | | | | | Mailcode: [facility] | [address] | | | | | [facility] | [phone] | | | | | and Healing, | | | | | | Building 1, 5th | | | | | | Floor [place], [place] | | | | | | [address] | | | | | | [phone] | | | +--------+ + + + [...]
--- OUTSIDE RECORDS SUMMARY | ~2019-05-19 | XMS | Encounter Summary ---
Demographics + + + | Address | [address] [facility] | | | [place] [address] | + + + | Home Phone | | + + + | Preferred Language | Unknown | + + + | Marital Status | Single | + + + | Mandaeism Affiliation | 1027 | + + + | Race | Unknown | + + + | Ethnic Group | Unknown | + + + Author + + + | Author | [facility] | | | and [place] | + + + | Organization | [facility] | | | and [...] Team Providers + +------+ + | Care Dental Ceramist Assistant Name | Role | Phone | [...] Description | +--------+--------+ + + + | 04/18/ | Refill | [facility] | Cachorro Maddox | Medication Refill | | 2018 | | [facility] | E, DO [address] | | | | | MEDICAL CLIN[facility] [address] | [place], [place] | | | | | [address] [place], | [address] | | | | | [place] [address] | [phone] | | | | | [phone] | | | +--------+--------+ + + + [...]
--- OUTSIDE RECORDS SUMMARY | ~2019-05-19 | XMS | Encounter Summary ---
Demographics + + + | Address | [address] | | | [place] [address] | + + + | Home Phone [...] Author + + + | Author | [facility] | + + + | Organization | [facility] | + + + | Address | Unknown | + + + | Phone | Unavailable | + + + Support + + + + + | Name | Relationship | Address | Phone | + + + + + | Huber Chen | ECON | [address] | | | | | [place] [address] | | + + + + + Care Team Providers + +------+ + | Care Lobsterman Name | Role | Phone | + +------+ + PCP | Unavailable | + +------+ + Reason for Visit + + + | Reason | Comments | + + + | Administrative Forms | she needs to get a return to work form sent in to her work. | + + + Encounter Details +--------+ + + + + | Date | Type | Department | Care Team | Description | +--------+ + + + + | 08/05/ | Telephone | [facility] | Dylan Rawls, | Administrative Forms | | 2007 | | Center at [facility] [address] | MD [address] | (she needs to get a | | | | [address] | [facility] [place] | return to work form | | | | Mailcode: [facility] | [address] | sent in to her | | | | [facility] | [phone] | work.) | | | | and Healing, | | | | | | [facility] | | | | | | [place], [place] | | | | | | [address] | | | | | | [phone] | | | +--------+ + + + [...]
--- OUTSIDE RECORDS SUMMARY | ~2019-05-19 | XMS | Encounter Summary ---
Demographics + + + | Address | [address] | | | [place] [address] | + + + | Home Phone | | + + + | Preferred Language | Unknown | + + + | Marital Status | Single | + + + | Christian Affiliation | LDS | + + + [...] | | | | | [place] [address] | | + + + + + Care Team Providers + +------+ + | Care Paperhanger Apprentice Name | Role | Phone | + +------+ + PCP | Unavailable | + +------+ + Encounter Details +--------+ + + + + | Date | Type | Department | Care Team | Description | +--------+ + + + + | 05/09/ | Results | Allergy Clinic at | Av Puri MD | | | 1995 | Only | [facility] [address] | | | | | | [address] | | | | | | Mailcode: [address] | | | | | | [place] | | | | | | [place] | | | | | | [place] [address] | | | | | | [phone] | | | +--------+ + + + [...]
--- OUTSIDE RECORDS SUMMARY | ~2019-05-19 | XMS | Encounter Summary ---
Demographics + + + | Address | 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 [place] [address] | + + + | Home Phone | | + + + | Preferred Language | Unknown | + + + | Marital Status | Single | + + + | Jewish Affiliation | LDS | + + + | Race | White | + + + | Ethnic Group | Not or | + + + Author + + + | Author | [facility] | + + + | Organization | [facility] | + + + | Address | Unknown | + + + | Phone | Unavailable | + + + Support + + + + + | Name | Relationship | Address | Phone | + + + + + | Huber Chen | ECON | [address] | | | | | [place] [address] | | + + + + + Care Team Providers + +------+ + | Care Bindery Assistant Name | Role | Phone | + +------+ + PCP | Unavailable | + +------+ + Encounter Details +--------+ + + + + | Date | Type | Department | Care Team | Description | +--------+ + + + + | 06/01/ | Telephone | [facility] | Mercedes Montoya, | | | 2006 | | Center at [facility] [address] | [address] [address] | | | | | [address] | [place] [facility] [place] | | | | | Mailcode: [facility] | [address] | | | | | [facility] | [phone] | | | | | and Healing, | | | | | | Building 1, 5th | | | | | | Floor [place], [place] | | | | | | [address] | | | | | | [phone] | | | +--------+ + + + [...]
--- OUTSIDE RECORDS SUMMARY | ~2019-05-19 | XMS | Encounter Summary ---
Demographics + + + | Address | [address] [facility] [address] | | | [place] [address] | + + + | Home Phone | | + + + | Preferred Language | Unknown | + + + | Marital Status | Single | + + + | Yarsanism Affiliation | LDS | + + + | Race | White | + + + | Ethnic Group | Not or | + + + Author + + + | Author | [facility] | + + + | Organization | [facility] | + + + | Address | Unknown | + + + | Phone | Unavailable | + + + Support + + + + + | Name | Relationship | Address | Phone | + + + + + | Huber Chen | ECON | [address] | | | | | [place] [address] | | + + + + + Care Team Providers + +------+ + | Care Assembler Name | Role | Phone | + [...] | | | | | to | [address] | [place] [address] | | | | | unspecified | Phone: | Phone: | | | | | cause | [phone] | [phone] | | | | | | Fax: | Fax: | | | | | | [phone] | [phone] | +--------+--------+ + + + + Encounter [...] [place] | | | | | [place], [place] | [address] | | | | | [address] | [phone] | | | | | [phone] | | | +--------+---------+ + + + [...] be different from the original. [facility] Skin Care for Atopic Dermatitis [...] month (around 08/08/2015). Eileen Teixeira MD, PhD Burrito Maker Department of Dermatology [facility] [place] 07/08/2015 documented in th is encounter Plan of Treatment Not on filedocumented as of this encounter Visit Diagnoses + + | Diagnosis | + + | Folliculitis - Primary Other specified disease of hair and hair follicles | + + documented in this encounter
--- OUTSIDE RECORDS SUMMARY | ~2019-05-19 | XMS | Encounter Summary ---
Demographics + + + | Address | [address] | | | [place] [address] | + + + | Home Phone | | + + + | Preferred Language | Unknown | + + + | Marital Status | Single | + + + | Episcopalian Affiliation | LDS | + + + | Race | White | + + + | Ethnic Group | Not or | + + + Author + + + | Author | [facility] | + + + | Organization | [facility] | + + + | Address | Unknown | + + + | Phone | Unavailable | + + + Support + + + + + | Name | Relationship | Address | Phone | + + + + + | Huber Chen | ECON | [address] | | | | | [place] [address] | | + + + + + Care Team Providers + +------+ + | Care Survey And Mapping Technician Name | Role | Phone | + +------+ + PCP | Unavailable | + +------+ + Reason for Visit + + + | Reason | Comments | + + + | New patient | | | consultation | | + + + | Nasal sinus problem | | + + + Office Visit [...] | | | | CENTER [address] | [place], [place] | | | | | | [address] | [address] | | | | | | PL | Phone: | | | | | | SUE, | [phone] | | | | | | [place] [address] | Fax: | | | | | | Phone: | [phone] | | | | | | [phone] | | | | | | | Fax: | | | | | | | [phone] | | +--------+--------+ + + + + Encounter Details +--------+---------+ + + + | Date | Type | Department | Care Team | Description | +--------+---------+ + + + | 03/15/ | Office | [facility] | Dylan Rawls [place], | Chronic Sinusitis; | | 2006 | Visit | Center at [facility] [address] | MD [address] | Chronic Ethmoidal | | | | [address] | [place], [place] | Sinusitis; Chronic | | | | Mailcode: [facility] | [address] | Maxillary Sinusitis | | | | [facility] | [phone] | | | | | and Healing, | | | | | | Building , | | | | | | Floor [place], [place] | | | | | | [address] | | | | | | [phone] | | | +--------+---------+ + + + [...] documented as of this encounter Progress Notes Dayo Cardenas Md - 03/15/2007 1:02 PM PDTHPI: Jesusita Chen is a 47 y.o. female who p resents to the [facility] at the request of Dr. Doherty in consultation for Chronic L maxillary rhinosinusitis. Current symptoms include nasal congestion, rhinorrhea, headache , facial pain, facial pressure and fatigue. The pressure and headaches are not localized to one area; rather, she feels them all over her face and head. Symptoms began 3 years ago. Symptom severity is moderate. Improvement occurred with antibiotics. Additional evaluation has included CT scan sinuses performed 10/2006 in [place]. She was seen by Dr. Washington in October who recommended surgery. She wished to obtain a second opinion prior to undergoing surgery. She has been on Nasocort and saline sinus irrigations with a little benefit. She also suffers from intermittent sinus infections requiring antib iotic therapy. During the infections she experiences discolored drainage. She denies any c hanges in her external appearance. She has noted some blurry vision recently but denies any double vision. I have reviewed the New Patient History Form which was completed by the patient. I have ma de appropriate changes to the form, signed it and will have it scanned to the medical record . PHYSICAL EXAM: Ear, nose, and throat exam reveals a pleasant, well-developed, well-nourish ed patient, in no apparent distress. Voice quality is within normal limits. External audit ory canals and tympanic membranes appear normal. Anterior rhinoscopy reveals a L septal dev iation. Oral cavity and oropharynx reveals healthy mucosa. The pharyngeal mucosa reveals n o lesions. No masses are identified. Lips and tongue are within normal limits. Neck revea ls no mass, adenopathy, or thyromegaly. Salivary glands are normal to palpation. Procedure: Nasal endoscopy was performed after lidocaine 4% topical anesthetic was placed. A rigid endoscope was utilized to evaluate the sinonasal cavities, mucosa, sinus ostia and turbinates. The R middle meatus is patent. The mucosa appears healthy. A prominent L sept al deviation is present and the L middle turbinate is pushed up against the lateral nasal wa ll. IMAGING: CT of the sinuses dated October 29, 2006 was reviewed. A prominent septal deviation to the L is present. The inferior turbinates are enlarged. The L maxillary sinus is atele ctatic and completely opacified. The uncinate is pushed up against the lamina. The remaind er of the sinuses are clear. ASSESSMENT: Chronic L maxillary sinusitis with atelectasis; septal deviation; inferior turb inate hypertrophy; recurrent acute sinusitis We've discussed issues and options today. The risks, benefits and alternatives were discus sed and questions answered. The nature of her disease was discussed. It is unlikely that h er headaches are related to the maxillary sinus problems. She was informed that she may beg in to develop enophthalmos as the sinus becomes more atelectatic with time though the probab ility of this is difficult to predict. The possibility of left ESS with septoplasty and inf erior turbinate reduction was discussed. She will consider surgery and will call if she wis hes to schedule in the future. In the meantime she will continue the Nasocort and sinus rin ses. I personally interviewed the patient, duplicated the pertinent parts of the physical examin ation and procedure and personally formulated the plan. I have reviewed, entered my finding s, and agree with the above documentation. Dylan Rawls M.D., M.P.H., F.A.C.S. Director, [facility] Professor and Chief, Rhinology and [...] | Routin | Chronic Ethmoidal | Ordered: 03/15/2007 | | DIAGNOSTIC | | e | Sinusitis Chronic | | | | | | Maxillary Sinusitis | | + + +--------+ + + documented as of this encounter Visit Diagnoses + + | Diagnosis | + + | Chronic sinusitis Unspecified sinusitis (chronic) | + + | Chronic ethmoidal sinusitis | + + | Chronic maxillary sinusitis | + + documented in this encounter"
--- OUTSIDE RECORDS SUMMARY | ~2019-05-19 | XMS | Encounter Summary ---
Demographics + + + | Address | [address] | | | [place] [address] | + + + | Home Phone | | + + + | Preferred Language | Unknown | + + + | Marital Status | Single | + + + | Jehovah'S Witness Affiliation | 1027 | + + + | Race | Unknown | + + + | Ethnic Group | Unknown | + + + Author + + + | Author | [facility] | | | and [place] | + + + | Organization | [facility] | | | [...] Team Providers + +------+ + | Care Juvenile Court Judge Name | Role | Phone | + [...] Refill | | 2018 | | [facility] | E, DO [address] | | | | | MEDICAL CLINIC [address] | [place], [place] | | | | | [address] [place], | [address] | | | | | [place] [address] | [phone] | | | | | [phone] | | | +--------+--------+ + + + [...]
--- OUTSIDE RECORDS SUMMARY | ~2019-05-19 | XMS | Encounter Summary ---
Demographics + + + | Address | [address] | | | TRANS[place] WORKER [place] [address] | + + + | Home Phone | | + + + | Preferred Language | Unknown | + + + | Marital Status | Single | + + + | Orthodoxy Affiliation | LDS | + + + | Race | White | + + + | Ethnic Group | Not or | + + + Author + + + | Author | [facility] | + + + | Organization | [facility] | + + + | Address | Unknown | + + + | Phone | Unavailable | + + + Support + + + + + | Name | Relationship | Address | Phone | + + + + + | Huber Chen | ECON | [address] | | | | | [place] [address] | | + + + + + Care Team Providers + +------+ + | Care Senior Electrical Designer Name | Role | Phone | + [...] Ave | | | | | | [place] [address] | [place], [place] | | | | | | [address] [facility] | [address] | | | | | | PL | Phone: | | | | | | SUE | [phone] | | | | | | [place] [address] | Fax: | | | | | | Phone: | [phone] | | | | | | [phone] | | | | | | | Fax: | | | | | | | [phone] | | +--------+--------+ + + + + Encounter Details +--------+---------+ + + + | Date | Type | Department | Care Team | Description | +--------+---------+ + + + | 07/21/ | Office | [facility] | Dylan Rawls, | Nasal Septal | | 2007 | Visit | Center at [facility] [address] | [address] | Deviation; Chronic | | | | [address] | [place], [place] | Maxillary Sinusitis; | | | | Mailcode: [facility] | [address] | Chronic Ethmoidal | | | | [facility] | [phone] | Sinusitis; Chronic | | | | and Healing, | | Maxillary Sinusitis | | | | Building 1, 5th | | | | | | Floor [place], [place] | | | | | | [address] | | | | | | [phone] | | | +--------+---------+ + + + [...] surgeries scheduled to take place on the [place] at the [facility]: Surgeries scheduled in the [facility] ([address] [place] [address]): registration is located on the 4th floor of [facility] (Day Surgery). Surgeries scheduled in the [facility]: registration is located on the 9th floor. Surgeries scheduled in [facility]: registration is located on the 6th floor. Surgeries scheduled in the [facility]: registration is located i n the [facility] on the first floor. For surgeries scheduled to take place at the [facility]: registration is l [...] 47 y.o. female who presents to the [facility] at the request of Dr. [...] included CT scan sinuses performed 10/2006 in [facility]. CURRENT PROBLEM LIST: There is no problem [...] Acetonide (NASACORT AQ) 55 mcg Nasal Aerosol, [place] inhale 1 spray in eac h nostril [...] documentation. Dylan Rawls M.D., M.P.H., F.A.C.S. Director, [facility] Professor and Chief, Rhinology and [...]
--- OUTSIDE RECORDS SUMMARY | ~2019-05-19 | XMS | Encounter Summary ---
Demographics + + + | Address | [address] | | | [place] [address] | + + + | Home Phone | | + + + | Preferred Language | Unknown | + + + | Marital Status | Single | + + + | Adventist Affiliation | LDS | + + + | Race | White | + + + | Ethnic Group | Not or | + + + Author + + + | Author | [facility] | + + + | Organization | [facility] | + + + | Address | Unknown | + + + | Phone | Unavailable | + + + Support + + + + + | Name | Relationship | Address | Phone | + + + + + | Huber Chen | ECON | [address] | | | | | [place] [address] | | + + + + + Care Team Providers + +------+ + | Care Electro Mechanical Technologist Name | Role | Phone | + +------+ + PCP | Unavailable | + +------+ + Encounter Details +--------+ + + + + | Date | Type | Department | Care Team | Description | +--------+ + + + + | 05/17/ | Document-Sc | UNKNOWN DEPARTMENT | Unknown . | | | 2013 | anned | [address] | | | | | | [address] | | | | | | [place], [place] | | | | | | [address] | | | +--------+ + + + [...]
--- OUTSIDE RECORDS SUMMARY | ~2019-05-19 | XMS | Encounter Summary ---
Demographics + + + | Address | [address] | | | [place] [address] | + + + | Home Phone | | + + + | Preferred Language | Unknown | + + + | Marital Status | Single | + + + | Restoration Affiliation | LDS | + + + [...] | | | | | [place] [address] | | + + + + + Care Team Providers + +------+ + | Care Test Baker Name | Role | Phone | + [...] + + | 08/05/ | Telephone | [facility] | Dylan Rawls, | Administrative Forms | | 2007 | | Center at [facility] [address] | MD [address] | (she needs to get a | | | | [address] | [facility] [place] | return to work form | | | | Mailcode: [facility] | [address] | sent in to her | | | | [facility] | [phone] | work.) | | | | and Healing, | | | | | | [facility] | | | | | | [place], [place] | | | | | | [address] | | | | | | [phone] | | | +--------+ + + + [...]
--- OUTSIDE RECORDS SUMMARY | ~2019-05-19 | XMS | Encounter Summary ---
Demographics + + + | Address | [address] | | | [place] [address] | + + + | Home Phone | | + + + | Preferred Language | Unknown | + + + | Marital Status | Single | + + + | Cheondoism Affiliation | LDS | + + + [...] | | | | | [place] [address] | | + + + + + Care Team Providers + +------+ + | Care Early Childhood Special Educator Name | Role | Phone | + +------+ + PCP | Unavailable | + +------+ + Reason for Visit + + + | Reason | Comments | + + + | Medication | | | management | | + + + Encounter Details +--------+ + + + + | Date | Type | Department | Care Team | Description | +--------+ + + + + | 11/02/ | Telephone | Otolaryngology | Mercedes Montoya, | Medication | | 2008 | | [facility] [address] | PA-C [address] | management | | | | [address] | [place], [place] | | | | | Rd Mailcode: OP[address] | [address] | | | | | Physician's | [phone] | | | | | [place], | | | | | | [place] [address] | | | | | | [phone] | | | +--------+ + + + [...]
--- OUTSIDE RECORDS SUMMARY | ~2019-05-19 | XMS | Encounter Summary ---
Demographics + + + | Address | [address] | | | [place] [address] | + + + | Home Phone [...] | | | | | [place] [address] | | + + + + + Care Team Providers + +------+ + | Care Material Cutter Name | Role | Phone | + +------+ + PCP | Unavailable | + +------+ + Encounter Details +--------+ + + + + | Date | Type | Department | Care Team | Description | +--------+ + + + + | 07/29/ | Procedure - | [facility] | Dylan Rawls, | Operative Report | | 2007 | | Center at [facility] [address] | [address] | | | | Transcribed | [address] | [place], [place] | | | | | Mailcode: [facility] | [address] | | | | | [facility] | [phone] | | | | | and Healing, | | | | | | Building | | | | | | Floor [place], [place] | | | | | | [address] | | | | | | [phone] | | | +--------+ + + + [...] | + +--------+ + + + | OPERATION RECORD | | 07/29/2007 | | Results for this | | | | 12:00 AM | | procedure are in the | | | | PST | | results section. | + +--------+ + + + documented in this encounter Results OPERATION RECORD (07/29/2007 12:00 AM PST) + + | Procedure Note | + + | Dylan Rawls MD - 07/29/2007 12:00 AM [facility] [id number] | | [id number] [place] [id number] | | Date: 07/29/2007 Attending Surgeon: Dylan Rawls MD, MPH, FACS Parachute Panel Joiner(s): | | Preoperative Diagnosis(es): 1. Left atelectatic maxillary sinus. 2. Left chronic | | maxillary sinusitis. 3. Left chronic ethmoid sinusitis. 4. Septal deviation. 5. Nasal | | airway obstruction. 6. Bilateral inferior turbinate hypertrophy. Postoperative | | Diagnosis(es): 1. Left atelectatic maxillary sinus. 2. Left chronic maxillary sinusitis. | | 3. Left chronic ethmoid sinusitis. 4. Septal deviation. 5. Nasal airway obstruction. 6. | | Bilateral inferior turbinate hypertrophy. Procedures Performed: 1. Left endoscopic | | maxillary antrostomy with removal of tissue from the maxillary sinus. 2. Left | | endoscopic partial ethmoidectomy. 3. Septoplasty. 4. Bilateral inferior turbinate | | submucous resection. 5. Bilateral inferior turbinate outfracture. 6. CT stereotactic | | navigational surgery. Findings: The patient had an atelectatic left maxillary sinus | | which was opacified. The uncinate process was placed upon the orbital wall from the | | medial wall of the orbit to the floor of the orbit and the infraorbital nerve. This | | significant anatomic abnormality led me to use CT stereotactic navigational surgery to | | help navigate the orbit with this maxillary antrostomy. Complications: None apparent. | | Specimens: Left sinus contents sent for pathologic evaluation. Estimated Blood Loss: | | Less than 100 cc. Procedure: The patient was identified in the holding area and taken | | to the operating room where she was placed in the supine position and induced under | | general inhalational anesthesia per Anesthesiology. The patient was draped in the normal | | fashion, and the CT stereotactic navigational surgical system was placed about the the | | patient's head, registered to appropriate level of accuracy and verified using known | | anatomic landmarks. It was used throughout the case to help identify critical structures | | including the orbit given the lateral placement of the uncinate process upon the orbit | | and the atelectatic maxillary sinus. This anatomy placed the patient at risk for an | | intraoperative orbital complication. An image guidance was used to help verify anatomy | | as that sinus was opened. The nose was topically decongested with 1:1000 adrenaline on | | neuro-pledgets followed by injection of the septal flaps bilaterally with 1% lidocaine | | and 1:100,000 epinephrine. The left posterior aspect of the middle turbinate, mid aspect | | of the middle turbinate, and anterosuperior attachment of the turbinate was also | | injected with 1% lidocaine and 1:100,000 epinephrine. The endoscopic procedure was begun | | on the left side where the middle turbinate was slightly medialized, and the free edge | | of the uncinate process identified. The stereotactic navigation surgery was utilized to | | find the position of the uncinate process upon the orbit. The uncinate process was then | | carefully peeled off the medial wall of the orbit and peeled off the inferior wall of | | the orbit, so that the natural ostium could be identified. The uncinate process was | | completely taken down opening the ethmoid infundibulum and identifying the natural | | ostium which was cannulated and enlarged at far inferiorly to the top of the inferior | | turbinates and as far posteriorly to the posterior wall of the maxillary sinus as was | | possible. There was mucoid debris trapped within the sinus as well as a large polyp at | | the anterior aspect of the sinus. This was carefully removed from the sinus using a | | large backbiting forceps within the sinus. The sinus was then irrigated. The ethmoid | | bulla was taken down to the lamina papyracea and the basal lamella of the middle | | turbinate to complete the partial ethmoidectomy. Attention was next turned to | | septoplasty. A left anterior and septal incision was created, and the left | | mucoperichondrial flap was elevated. The bony cartilaginous junction was disarticulated, | | and offending portions of septal cartilage and bone were carefully removed. A large | | spur was removed from the septum using through-cutting forceps. The septal flaps were | | then irrigated and replaced to a normal position and were quilted in place using a 4-0 | | Vicryl Rapide suture. The anterior hemitransfixion incision was closed with 4-0 chromic | | in the interrupted fashion. Attention was next turned to the inferior turbinate surgery. | | An incision was made in the head of the anteroinferior turbinate bilaterally. A caudal | | elevator was used to elevate the submucosa from the underlying conchal bone. The | | turbinate microdebrider blade was used to carefully resect submucosally the turbinate | | tissue leaving the mucosa intact throughout. This was performed on the left side and | | then the right side. At this stage, the incisions on the heads of the inferior turbinate | | were closed with a 4-0 chromic in the interrupted fashion. Finally, a Boies elevator | | was used to first infracture and then therapeutically outfracture the left inferior | | turbinate followed by the right inferior turbinate. Excellent hemostasis was noted. The | | septum was noted to be midline. The middle turbinate had a tendency to lateralize, and | | therefore we elected to place a Salman stent within the middle meatus as well as place a | | Vicryl Rapide suture through the middle turbinate and the nasal septum to help hold it | | in a medial position. Sinonasal cavities were copiously irrigated. All debris removed. | | Excellent hemostasis was noted. The patient was returned to the care of Anesthesia for | | awakening. Dylan Rawls MD, MPH, FACS Director, [facility] Professor | | of Otolaryngology/Head and Neck Surgery [facility] / [id number] / [id number] / [id number] / D: | | 07/30/2007 Electronically signed by Dylan Rawls 08-29-2007 10:29:04 | | AM | | of the middle turbinate, and anterosuperior attachment of the turbinate was | | also injected with 1% lidocaine and 1:100,000 epinephrine. The endoscopic | | procedure was begun on the left side where the middle turbinate was | | slightly medialized, and the free edge of the uncinate process identified. | | The stereotactic navigation surgery was utilized to find the position of | | the uncinate process upon the orbit. The uncinate process was then | | carefully peeled off the medial wall of the orbit and peeled off the | | inferior wall of the orbit, so that the natural ostium could be identified. | | The uncinate process was completely taken down opening the ethmoid | | infundibulum and identifying the natural ostium which was cannulated and | | enlarged at far inferiorly to the top of the inferior turbinates and as far | | posteriorly to the posterior wall of the maxillary sinus as was possible. | | There was mucoid debris trapped within the sinus as well as a large polyp | | at the anterior aspect of the sinus. This was carefully removed from the | | sinus using a large backbiting forceps within the sinus. The sinus was | | then irrigated. The ethmoid bulla was taken down to the lamina papyracea | | and the basal lamella of the middle turbinate to complete the partial | | ethmoidectomy. Attention was next turned to septoplasty. A left anterior | | and septal incision was created, and the left mucoperichondrial flap was | | elevated. The bony cartilaginous junction was disarticulated, and | | offending portions of septal cartilage and bone were carefully removed. A | | large spur was removed from the septum using through-cutting forceps. The | | septal flaps were then irrigated and replaced to a normal position and were | | quilted in place using a 4-0 Vicryl Rapide suture. The anterior | | hemitransfixion incision was closed with 4-0 chromic in the interrupted | | fashion. Attention was next turned to the inferior turbinate surgery. An | | incision was made in the head of the anteroinferior turbinate bilaterally. | | A caudal elevator was used to elevate the submucosa from the underlying | | conchal bone. The turbinate microdebrider blade was used to carefully | | resect submucosally the turbinate tissue leaving the mucosa intact | | throughout. This was performed on the left side and then the right side. | | At this stage, the incisions on the heads of the inferior turbinate were | | closed with a 4-0 chromic in the interrupted fashion. Finally, a Boies | | elevator was used to first infracture and then therapeutically outfracture | | the left inferior turbinate followed by the right inferior turbinate. | | Excellent hemostasis was noted. The septum was noted to be midline. The | | middle turbinate had a tendency to lateralize, and therefore we elected to | | place a Salman stent within the middle meatus as well as place a Vicryl | | Rapide suture through the middle turbinate and the nasal septum to help | | hold it in a medial position. Sinonasal cavities were copiously irrigated. | | All debris removed. Excellent hemostasis was noted. The patient was | | returned to the care of Anesthesia for awakening. | | | | | | | | | | Dylan Rawls MD, MPH, FACS | | Director, [facility] | | Professor of Otolaryngology/Head and Neck Surgery | | | | TLS / HS | | [id number] / [id number] / [id number] / | | | | | | | | | | | | Electronically signed by Dylan Rawls 08-29-2007 10:29:04 AM | | | | | + + documented in this encounter Visit Diagnoses Not on filedocumented in this encounter"
--- OUTSIDE RECORDS SUMMARY | ~2019-05-19 | XMS | Encounter Summary ---
Demographics + + + | Address | [address] | | | [place] [address] | + + + | Home Phone | | + + + | Preferred Language | Unknown | + + + | Marital Status | Single | + + + | Spiritism Affiliation | LDS | + + + | Race | White | + + + | Ethnic Group | Not or | + + + Author + + + | Author | [facility] | + + + | Organization | [facility] | + + + | Address | Unknown | + + + | Phone | Unavailable | + + + Support + + + + + | Name | Relationship | Address | Phone | + + + + + | Huber Chen | ECON | [address] | | | | | [place] [address] | | + + + + + Care Team Providers + +------+ + | Care Cone Picker Name | Role | Phone | + [...] [address] | | | | | | [address] | [place], [place] | | | | | | [address] | [address] | | | | | | [address] | Phone: | | | | | | [place], | [phone] | | | | | | [place] [address] | Fax: | | | | | | Phone: | [phone] | | | | | | [phone] | | | | | | | Fax: | | | | | | | [phone] | | +--------+--------+ + + + + Encounter Details +--------+---------+ + + + | Date | Type | Department | Care Team | Description | +--------+---------+ + + + | 07/27/ | Office | [facility] | Mercedes Montoya, | Chronic Ethmoidal | | 2008 | Visit | Center at [facility] [address] | PA-C [address] | Sinusitis; Chronic | | | | [address] | Ave [place], [place] | Maxillary Sinusitis | | | | Mailcode: [id number] | [address] | | | | | [facility] | [phone] | | | | | and Healing, | | | | | | Building | | | | | | Floor [place], [place] | | | | | | [address] | | | | | | [phone] | | | +--------+---------+ + + + [...] encounter Progress Notes Mercedes Montoya PA - 07/27/2008 2:31 PM PSTFormatting of this note might be different fr om the original. HPI: Jesusita Chen is a 48 y.o. female who presents to the [facility] for follow up of Chronic rhinosinusitis. Current symptoms include nasal congestion and facial pressure . Symptoms began 2 weeks ago. Symptom severity is moderate. Improvement occurred with Feb mentin and Prednisone. She was started on Augmentin, prednisone and an albuterol inhaler at the beginning of Jul or symptoms of a sinus infection and wheezing. She responded well to this regimen as startin g to feel much better. She was not on any sinus maintenance medications prior to this episode. She stopped her jennifer acort a few months ago as it was causing nose bleeds. Current outpatient prescriptions Medication Sig Albuterol 90 [...] membranes appear normal. Anterior rhinoscopy reveals mucosal edema and turbinate hypertrophy. Oral cavity and oropharynx reveals healthy mucosa. The pharynge al mucosa reveals no lesions. Lips and tongue are within normal limits. Neck reveals no m ass, adenopathy, or thyromegaly. Salivary glands are normal to palpation. PROCEDURE: Diagnostic Nasal Endoscopy Anesthesia: Lidocaine 4% topical anesthetic Description of Procedure: A rigid endoscope was utilized to evaluate the sinonasal cavities , mucosa, sinus ostia and turbinates. Overall, signs of mucosal inflammation are noted. The re is no evidence of purulent drainage. Bilateraly inferior turbinate hypertrophy was noted. ASSESSMENT: Chronic rhinosinusitis and Acute exacerbation of chronic rhinosinusitis - wes medina. We've discussed issues and options today. The risks, benefits and alternatives were discus sed and questions answered. The patient has elected to proceed with a trial of Saline irrig ation and Pred Fort[place] 1% and return for follow up in 2 months or sooner as needed. documented in this e ncounter Plan of Treatment + + +--------+ + + | Name | Type | Priori | Associated Diagnoses | Order Schedule | | | | ty | | | + + +--------+ + + | LA NASAL | Procedures | Routin | Chronic Ethmoidal | Ordered: 07/27/2008 | | ENDOSCOPY,DX | | e | Sinusitis Chronic | | | | | | Maxillary Sinusitis | | + + +--------+ + + documented as of this encounter Visit Diagnoses + + | Diagnosis | + + | Chronic ethmoidal sinusitis | + + | Chronic maxillary sinusitis | + + documented in this encounter"
--- OUTSIDE RECORDS SUMMARY | ~2019-05-19 | XMS | Encounter Summary ---
Demographics + + + | Address | [address] | | | [place] [address] | + + + | Home Phone | | + + + | Preferred Language | Unknown | + + + | Marital Status | Single | + + + | Orthodox Affiliation | LDS | + + + | Race | White | + + + | Ethnic Group | Not or | + + + Author + + + | Author | [facility] | + + + | Organization | [facility] | + + + | Address | Unknown | + + + | Phone | Unavailable | + + + Support + + + + + | Name | Relationship | Address | Phone | + + + + + | Huber Chen | ECON | [address] | | | | | [place] [address] | | + + + + + Care Team Providers + +------+ + | Care Agile Developer Name | Role | Phone | + [...] [address] | | | | | | [place], [place] | | | | | | [address] | | | +--------+ + + + [...]
--- OUTSIDE RECORDS SUMMARY | ~2019-05-19 | XMS | Encounter Summary ---
Demographics + + + | Address | [address] | | | [place] [address] | + + + | Home Phone | | + + + | Preferred Language | Unknown | + + + | Marital Status | Single | + + + | Hinduism Affiliation | LDS | + + + [...] | | | | | [place] [address] | | + + + + + Care Team Providers + +------+ + | Care Trimmer Loader Name | Role | Phone | + [...] + + | 08/02/ | Telephone | [facility] | Dylan Rawls, | Post Op (she is | | 2007 | | Center at [facility] [address] | MD [address] | still getting a lot | | | | [address] | [place], [place] | of blood drainage w/ | | | | Mailcode: [facility] | [address] | watery drainage and | | | | [facility] | [phone] | would like a call | | | | and Healing, | | back.) | | | | Building , | | | | | | Floor [place], [place] | | | | | | [address] | | | | | | [phone] | | | +--------+ + + + [...]
--- OUTSIDE RECORDS SUMMARY | ~2019-05-19 | XMS | Encounter Summary ---
Demographics + + + | Address | [address] | | | [place] [address] | + + + | Home Phone [...] Author + + + | Author | [facility] | + + + | Organization | [facility] | + + + | Address | Unknown | + + + | Phone | Unavailable | + + + Support + + + + + | Name | Relationship | Address | Phone | + + + + + | Huber Chen | ECON | [address] | | | | | [place] [address] | | + + + + + Care Team Providers + +------+ + | Care Assembly Line Robot Operator Name | Role | Phone | [...] + + | 07/17/ | Telephone | [facility] | Dylan Rawls, | Discussion (pt would | | 2007 | | Center at [facility] [address] | MD [address] | like a note/papers | | | [address] | [place], [place] | about her sinus | | | | Mailcode: [facility] | [address] | problems for work. | | | | [facility] | [phone] | Please give her a | | | | and Healing, | | call. thank you.) | | | | Building | | | | | | [place], [place] | | | | | | [address] | | | | | | [phone] | | | +--------+ + + + [...]
--- OUTSIDE RECORDS SUMMARY | ~2019-05-19 | XMS | Encounter Summary ---
Demographics + + + | Address | [address] | | | [place] [address] | + + + | Home Phone [...] Author + + + | Author | [facility] | + + + | Organization | [facility] | + + + | Address | Unknown | + + + | Phone | Unavailable | + + + Support + + + + + | Name | Relationship | Address | Phone | + + + + + | Huber Chen | ECON | [address] | | | | | [place] [address] | | + + + + + Care Team Providers + +------+ + | Care Instructional Designer Name | Role | Phone | [...] + + | 01/22/ | Telephone | [facility] | Dylan Rawls, | Medication requested | | 2007 | | Center at [facility] [address] | MD [address] | (she would like to | | | | [address] | [place], [place] | be changed from | | | | Mailcode: [facility] | [address] | Predforte to another | | | | [facility] | [phone] | option) | | | | and Healing, | | | | | | [facility] | | | | | | [place], [place] | | | | | | [address] | | | | | | [phone] | | | +--------+ + + + [...]
--- OUTSIDE RECORDS SUMMARY | ~2019-05-19 | XMS | Encounter Summary ---
Demographics + + + | Address | [address] | | | EXERCISE SCIENCE INSTRUCTOR [place] [address] | + + + | Home Phone [...] Author + + + | Author | [facility] | + + + | Organization | [facility] | + + + | Address | Unknown | + + + | Phone | Unavailable | + + + Support + + + + + | Name | Relationship | Address | Phone | + + + + + | Huber Chen | ECON | [address] | | | | | [place] [address] | | + + + + + Care Team Providers + +------+ + | Care Coil Connector Repairer Name | Role | Phone | + +------+ + PCP | Unavailable | + +------+ + Reason for Visit + + + | Reason | Comments | + + + | Headache | she is having bad headaches and would like a call to see what she | | | can have called in or what she needs to do | + + + Encounter Details +--------+ + + + + | Date | Type | Department | Care Team | Description | +--------+ + + + + | 12/31/ | Telephone | [place] [facility] | Dylan Rawls, | Headache (she is | | 2009 | | Center at [facility] [address] | [address] | having bad headaches | | | | [address] | [place], [place] | and would like a | | | | Mailcode: [facility] | [address] | call to see what she | | | | [facility] | [phone] | can have called in | | | | and Healing, | | or what she needs to | | | | [place] [address] [facility] | | do) | | | | Floor [place], [place] | | | | | | [address] | | | | | | [phone] | | | +--------+ + + + [...]
--- OUTSIDE RECORDS SUMMARY | ~2019-05-19 | XMS | Encounter Summary ---
Demographics + + + | Address | [address] | | | [place] [address] | + + + | Home Phone | | + + + | Preferred Language | Unknown | + + + | Marital Status | Single | + + + | Yazidism Affiliation | 1027 | + + + | Race | Unknown | + + + | Ethnic Group | Unknown | + + + Author + + + | Author | [facility] | | | and [place] | + + + | Organization | [facility] | | | [...] Team Providers + +------+ + | Care Product Line Manager Name | Role | Phone | + [...] Refill | | 2018 | | [facility] | E, DO [address] | | | | | MEDICAL CLINIC [address] | [place], [place] | | | | | [address] [place], | [address] | | | | | [place] [address] | [phone] | | | | | [phone] | | | +--------+--------+ + + + [...]
--- OUTSIDE RECORDS SUMMARY | ~2019-05-19 | XMS | Clinical Summary ---
Demographics + + + | Address | [address] | | | [place] [address] | + + + | Home Phone | | + + + | Preferred Language | Unknown | + + + | Marital Status | Single | + + + | Latter Day Affiliation | LDS | + + + [...] | | | | | [place] [address] | | + + + + + Care Team Providers + +------+ + | Care Continuous Weld Pipe Mill Supervisor Name | Role | Phone | + +------+ + | Cachorro Maddox DO | PCP | | + +------+ + Source Comments APOLINAR is fully live on both [facility] Ambulatory and [facility] InPatient.[facility] Allergies No Known Allergies Medications + + [...] | | 09 | | | | Bevier, Suspension | | | | | | [...] | | | + +--------+ +--------+-------+---------+--------+ | PROPERTY TECHNICIAN MEDICAID | PROPERTY TECHNICIAN | xxxxxxxx | Effect | | | [...] 1960 | [id number] | [place] [address] | | | [place] | | | 3 (Home) | | + +--------+ +--------+ + + | Jesusita Chen | Person | Self | [birth year] | [address] | | | al/Fam | | 1960 | [phone] | [place] [address] | | | izaiah | | | 3 (Home) | | + +--------+ +--------+ + + Advance Directives + + + + + | Type | Date Recorded | Patient | Explanation | | | | Security Infrastructure Engineer | | + + + + + | Advance | | | | | Directives and | | | | | Living Will | | | | + + + + + | Power of | | | | | Beam Warper | | | | + + + + +
--- OUTSIDE RECORDS SUMMARY | ~2019-05-19 | XMS | Encounter Summary ---
Demographics + + + | Address | [address] | | | PRINCIPAL CONSULTING ENGINEER [place] [address] | + + + | Home Phone | | + + + | Preferred Language | Unknown | + + + | Marital Status | Single | + + + | Presybeterian Affiliation | LDS | + + + [...] | | | | | [place] [address] | | + + + + + Care Team Providers + +------+ + | Care Dumper Bulk System Name | Role | Phone | + +------+ + PCP | Unavailable | + +------+ + Reason for Visit + + + | Reason | Comments | + + + | Pre-op evaluation | chronic sinusitis | + + + Encounter Details +--------+---------+ + + + | Date | Type | Department | Care Team | Description | +--------+---------+ + + + | 07/21/ | Office | Preoperative | 1, [facility] Physician Assistant [address] | Chronic Maxillary | | 2007 | Visit | Medicine Clinic at | [facility] [address] | Sinusitis (Primary | | | | [facility] 4th Floor [address] | [place] [address] | Dx) | | | | [address] | | | | | | Mailcode: CH4S | | | | | | [facility] | | | | | | and Healing, | | | | | | Building 1,4th Floor | | | | | | [place], [place] | | | | | | [address] | | | | | | [phone] | | | +--------+---------+ + + + [...] + + documented as of this encounter Harika Luu - 07/21/2007 2:26 PM PSTSee Scanned H&P. [facility] [facility] [place] [address] documented in this encoun ter Plan of Treatment Not on filedocumented as of this encounter Visit Diagnoses + + | Diagnosis | + + | Chronic maxillary sinusitis - Primary | + + documented in this encounter"
--- OUTSIDE RECORDS SUMMARY | ~2019-05-19 | XMS | Encounter Summary ---
Demographics + + + | Address | [address] | | | THEOLOGY PROFESSOR [place] [address] | + + + | Home Phone | | + + + | Preferred Language | Unknown | + + + | Marital Status | Single | + + + | Roman Catholic Affiliation | LDS | + + + [...] | | | | | [place] [address] | | + + + + + Care Team Providers + +------+ + | Care Auditor Appraiser Name | Role | Phone | + +------+ + PCP | Unavailable | + +------+ + Encounter Details +--------+ + + + + | Date | Type | Department | Care Team | Description | +--------+ + + + + | 07/29/ | Procedure - | [facility] | Dylan Rawls, | Operative Report | | 2007 | | Center at [facility] [address] | [address] | | | | Transcribed | [address] | [place], [place] | | | | | Mailcode: [facility]ana | [address] | | | | | [facility] | [phone] | | | | | and Healing, | | | | | | Building | | | | | | Floor [place], [place] | | | | | | [address] | | | | | | [phone] | | | +--------+ + + + [...] Dylan Rawls MD - 07/29/2007 12:[address] [facility] [id number] | | [id number] [id number] [place] [id number] | | Date: 07/29/2007 Attending Surgeon: Dylan Rawls MD, MPH, FACS Website Designer(s): | | Preoperative Diagnosis(es): 1. Left atelectatic [...] awakening. Dylan Rawls MD, MPH, FACS Director, [facility] Professor | | of Otolaryngology/Head and Neck Surgery [facility] / [id number] / [id number] / [id number] / D: | | 07/30/2007 Electronically signed [...] Rawls MD, MPH, FACS | | Director, [facility] | | Professor of Otolaryngology/Head and Neck Surgery | | | | TLS / HS | | [id number] / [id number] / [id number] / | | | | | | | | | | | | Electronically signed by Dylan Rawls 08-29-2007 10:29:04 AM | | | | | + + documented in this encounter Visit Diagnoses Not on filedocumented in this encounter"
--- OUTSIDE RECORDS SUMMARY | ~2019-05-19 | XMS | Encounter Summary ---
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 [place] [address] | + + + | Home Phone | | + + + | Preferred Language | Unknown | + + + | Marital Status | Single | + + + | Yazidi Affiliation | LDS | + + + [...] | | | | | [place] [address] | | + + + + + Care Team Providers + +------+ + | Care Environmental Health Officer Name | Role | Phone | [...] | | | | CENTER [address] | [place], [place] | | | | | | [address] | [address] | | | | | | [address] | Phone: | | | | | | [place], | [phone] | | | | | | [place] [address] | Fax: | | | | | | Phone: | [phone] | | | | | | [phone] | | | | | | | Fax: | | | | | | | [phone] | | +--------+--------+ + + + + Encounter Details +--------+---------+ + + + | Date | Type | Department | Care Team | Description | +--------+---------+ + + + | 03/15/ | Office | [facility] | Dylan Rawls [place], | Chronic Sinusitis; | | 2006 | Visit | Center at [facility] [address] | MD [address] | Chronic Ethmoidal | | | | [address] | [place], [place] | Sinusitis; Chronic | | | | Mailcode: CH5E | [address] | Maxillary Sinusitis | | | | [facility] | [phone] | | | | | and Healing, | | | | | | Building , | | | | | | Floor [place], [place] | | | | | | [address] | | | | | | [phone] | | | +--------+---------+ + + + [...] y.o. female who p resents to the [facility] at the request of Dr. [...] included CT scan sinuses performed 10/2006 in [place]. She was seen by Dr. Washington in [...] documentation. Dylan Rawls M.D., M.P.H., F.A.C.S. Director, [facility] Professor and Chief, Rhinology and [...]
--- OUTSIDE RECORDS SUMMARY | ~2019-05-19 | XMS | Encounter Summary ---
Demographics + + + | Address | [address] | | | [place] [address] | + + + | Home Phone [...] + + + | Author | [facility] | | | and [place] | + + + | Organization | [facility] | | [...] Team Providers + +------+ + | Care Pipe Machine Operator Name | Role | Phone | [...] Description | +--------+--------+ + + + | 02/28/ | Refill | [facility] | Cachorro Maddox | Medication Refill | | 2018 | | [facility] | E, DO [address] | | | | | MEDICAL CLINIC [address] | [place], [place] | | | | | [address] [place], | [address] | | | | | [place] [address] | [phone] | | | | | [phone] | | | +--------+--------+ + + + [...]
--- OUTSIDE RECORDS SUMMARY | ~2019-05-19 | XMS | Encounter Summary ---
Demographics + + + | Address | [address] | | | [place] [address] | + + + | Home Phone | | + + + | Preferred Language | Unknown | + + + | Marital Status | Single | + + + | Judaism Affiliation | 1027 | + + + [...] Team Providers + +------+ + | Care Logger Driving Horses Name | Role | Phone | + [...] Description | +--------+--------+ + + + | 05/15/ | Refill | KATERINA STEWART | aCchorro Maddox | Medication Refill | | 2018 | | [facility] | E, DO [address] | | | | | MEDICAL CLINIC [address] | [place], [place] | | | | | [address] [place], | [address] | | | | | [place] [address] | [phone] | | | | | [phone] | | | +--------+--------+ + + + [...]
--- OUTSIDE RECORDS SUMMARY | ~2019-05-19 | XMS | Encounter Summary ---
Demographics + + + | Address | [address] | | | IDENTIFICATION AND RECORDS COMMANDER [place] [address] | + + + | Home Phone | | + + + | Preferred Language | Unknown | + + + | Marital Status | Single | + + + | Nondenominational Affiliation | LDS | + + + | Race | White | + + + | Ethnic Group | Not or | + + + Author + + + | Author | [facility] | + + + | Organization | [facility] | + + + | Address | Unknown | + + + | Phone | Unavailable | + + + Support + + + + + | Name | Relationship | Address | Phone | + + + + + | Huber Chen | ECON | [address] | | | | | [place] [address] | | + + + + + Care Team Providers + +------+ + | Care Cannon Pinion Adjuster Name | Role | Phone | + [...] | | | | CENTER [address] | [facility] [place] | | | | | | [place] | [address] | | | | | | PL | Phone: | | | | | | [place] | [phone] | | | | | | [place] [address] | Fax: | | | | | | Phone: | [phone] | | | | | | [phone] | | | | | | | Fax: | | | | | | | [phone] | | +--------+--------+ + + + + Encounter Details +--------+---------+ + + + | Date | Type | Department | Care Team | Description | +--------+---------+ + + + | 08/23/ | Office | [facility] | Dylan Rawls, | Chronic Ethmoidal | | 2007 | Visit | Center at [facility] [address] | MD [address] | Sinusitis; Chronic | | | | [address] | [place], [place] | Maxillary Sinusitis | | | | Mailcode: K[place]INA | [address] | | | | | [facility] | [phone] | | | | | and Healing, | | | | | | [facility] | | | | | | [place], [place] | | | | | | [address] | | | | | | [phone] | | | +--------+---------+ + + + [...] documentation. Dylan Rawls M.D., M.P.H., F.A.C.S. Director, [facility] Professor and Chief, Rhinology and [...]
--- OUTSIDE RECORDS SUMMARY | ~2019-05-19 | XMS | Encounter Summary ---
Demographics + + + | Address | [address] | | | PHYSICAL THERAPY TECHNICIAN [place] [address] | + + + | Home Phone | | + + + | Preferred Language | Unknown | + + + | Marital Status | Single | + + + | Faith Affiliation | LDS | + + + | Race | White | + + + | Ethnic Group | Not or | + + + Author + + + | Author | [facility] | + + + | Organization | [facility] | + + + | Address | Unknown | + + + | Phone | Unavailable | + + + Support + + + + + | Name | Relationship | Address | Phone | + + + + + | Huber Chen | ECON | [address] | | | | | [place] [address] | | + + + + + Care Team Providers + +------+ + | Care Medical Accounts Receivable Specialist Name | Role | Phone | + +------+ + PCP | Unavailable | + +------+ + Encounter Details +--------+ + + + + | Date | Type | Department | Care Team | Description | +--------+ + + + + | 05/09/ | Results | Registration [id number] | | | | 1995 | Only | [address] | | | | | | [address] Mailcode: [id number] | | | | | | [place], [place] | | | | | | [address] | | | | | | [phone] | | | +--------+ + + + [...] | + +--------+ + + + | PULMONARY FUNCTION | Routin | 05/09/1996 | | Results for this | | TESTS | e | 4:38 PM | | procedure are in the | | | | PDT | | results section. | + +--------+ + + + | CHEMISTRY TESTS 4 | Routin | 05/09/1996 | | Results for this | | | e | 1:39 PM | | procedure are in the | | | | PDT | | results section. | + +--------+ + + + | CBC TESTS 2 | Routin | 05/09/1996 | | Results for this | | | e | 1:39 PM | | procedure are in the | | | | PDT | | results section. | + +--------+ + + + | MISCELLANEOUS | Routin | 05/09/1996 | | Results for this | | CHEMISTRY TESTS | e | 1:39 PM | | procedure are in the | | | | PDT | | results section. | + +--------+ + + + | MISCELLANEOUS | Routin | 05/09/1996 | | Results for this | | CHEMISTRY TESTS | e | 1:39 PM | | procedure are in the | | | | PDT | | results section. | + +--------+ + + + | MISCELLANEOUS | Routin | 05/09/1996 | | Results for this | | HEMATOLOGY TESTS | e | 1:39 PM | | procedure are in the | | | | PDT | | results section. | + +--------+ + + + | IMMUNOLOGY TESTS 3 | Routin | 05/09/1996 | | Results for this | | | e | 1:04 PM | | procedure are in the | | | | PDT | | results section. | + +--------+ + + + documented in this encounter Results PULMONARY FUNCTION TESTS (05/09/1996 4:38 PM PDT) + + + + + + | Component | Value | Ref Range | Performed | Pathologist | | | | | At | Signature | + + + + + + | FVC | 4.74 | L | | | | MEASURED | | | | | + + + + + + | FVC % PRED | 128. | % | | | + + + + + + | FEV1 | 3.6 | L/S | | | | MEASURED | | | | | + + + + + + | FEV1 % PRED | 115. | % | | | + + + + + + | FEV1/FVC | 76. | % | | | | MEASURED | | | | | + + + + + + | FEF() | 3.08 | L/S | | | + + + + + + | FEF() | 87. | % | | | | % PRED | | | | | + + + + + + | REST SAT | 98. | % | | | + + + + + + | EXER SAT | 98. | % | | | + + + + + + | WORK LOAD | 75. | W | | | + + + + + + | MECHOLYL | -VE | W | | | | (LAB) | | | | | + + + + + + | TLC | 5.32 | L | | | | MEASURED | | | | | + + + + + + | TLC % PRED | 102. | % | | | + + + + + + | FRC | 2.12 | L | | | | MEASURED | | | | | + + + + + + | FRC % PRED | 74. | % | | | + + + + + + | RV MEASURED | 0.94 | L | | | + + + + + + | RV % PRED | 58. | % | | | + + + + + + | DLCO | 24.04 | ML/MIN/MM HG | | | | MEASURED | | | | | + + + + + + | DLCO % PRED | 84. | % | | | + + + + + + | DLCO/VA | 3.86 | ML/MIN/MM HG/L | | | | MEASURED | | | | | + + + + + + | DLCO/VA % | 68. | % | | | | PRED | | | | | + + + + + + | PF COMMENT | MECHOLYL CHALLENGE -VE | % | | | | 2 | AT 25MG/ML | | | | + + + + + + + + | Specimen | + + | | + + + + + + + | Performing | Address | City/State/Zipcode | Phone Number | | Organization | | | | + + + + + | [facility] | [address] | [place] [address] | | | PATHOLOGY | [address] | | | + + + + + CBC TESTS 2 (05/09/1996 1:39 PM PDT) + + + + + + | Component | Value | Ref Range | Performed | Pathologist | | | | | At | Signature | + + + + + + | WHITE CELL | 10.2 (H) | K/CU MM | | | | COUNT | | | | | + + + + + + | RED CELL | 4.79 | M/CU MM | | | | COUNT | | | | | + + + + + + | HEMOGLOBIN | 15.2 (H) | GM/DL | | | + + + + + + | HEMATOCRIT | 43.9 | % | | | + + + + + + | MCV | 91.6 | FL | | | + + + + + + | MCH | 31.8 | PG | | | + + + + + + | MCHC | 34.7 (H) | GM/DL | | | + + + + + + | RDW | 13.1 | % | | | + + + + + + | PLATELET | 289. | K/CU MM | | | | COUNT | | | | | + + + + + + | PLATELET | FEW PLT CLUMPS ON | K/CU MM | | | | COUNT | SMEAR;EST. NORMAL | | | | + + + + + + | MPV | 8. | FL | | | + + + + + + | NEUTROPHIL | 75. | % | | | | % | | | | | + + + + + + | NEUTROPHIL | FINAL DIFF, SMEAR | % | | | | % | REVIEWED | | | | + + + + + + | LYMPHOCYTE | 15. (L) | % | | | | % | | | | | + + + + + + | MONOCYTE % | 7. | % | | | + + + + + + | EOS % | 4. | % | | | + + + + + + | BASO % | 0. | % | | | + + + + + + | NEUTROPHIL | 7.2 | K/CU MM | | | | # | | | | | + + + + + + | LYMPHOCYTE | 1.4 | K/CU MM | | | | # | | | | | + + + + + + | MONOCYTE # | 0.6 | K/CU MM | | | + + + + + + | EOS # | 0.3 | K/CU MM | | | + + + + + + | BASO # | 0. | K/CU MM | | | + + + + + + | SEDIMENTATI | 10. | MM/HR | | | | ON RATE | | | | | + + + + + + + + | Specimen | + + | | + + + + + + + | Performing | Address | City/State/Zipcode | Phone Number | | Organization | | | | + + + + + | [facility] | [address] | [place] [address] | | | PATHOLOGY | [address] | | | + + + + + MISCELLANEOUS HEMATOLOGY TESTS (05/09/1996 1:39 PM PDT) + + + + + + | Component | Value | Ref Range | Performed | Pathologist | | | | | At | Signature | + + + + + + | EOSINOPHIL | 367. | CU MM | | | | COUNT | | | | | + + + + + + + + | Specimen | + + | | + + + + + + + | Performing | Address | City/State/Zipcode | Phone Number | | Organization | | | | + + + + + | [facility] | [address] | [place] [address] | | | PATHOLOGY | [address] | | | + + + + + MISCELLANEOUS CHEMISTRY TESTS (05/09/1996 1:39 PM PDT) + + + + + + | Component | Value | Ref Range | Performed | Pathologist | | | | | At | Signature | + + + + + + | FREE T4, | 1.2 | ng/dL | | | | SERUM | | | | | + + + + + + + + | Specimen | + + | | + + + + + + + | Performing | Address | City/State/Zipcode | Phone Number | | Organization | | | | + + + + + | [facility] | [address] | [place] [address] | | | PATHOLOGY | [address] | | | + + + + + MISCELLANEOUS CHEMISTRY TESTS (05/09/1996 1:39 PM PDT) + + + + + + | Component | Value | Ref Range | Performed | Pathologist | | | | | At | Signature | + + + + + + | IGA SERUM | 164. | mg/dL | | | + + + + + + | IGG SERUM | 892. | mg/dL | | | + + + + + + + + | Specimen | + + | | + + + + + + + | Performing | Address | City/State/Zipcode | Phone Number | | Organization | | | | + + + + + | [facility] | [address] | [place] [address] | | | PATHOLOGY | [address] | | | + + + + + CHEMISTRY TESTS 4 (05/09/1996 1:39 PM PDT) + + + + + + | Component | Value | Ref Range | Performed | Pathologist | | | | | At | Signature | + + + + + + | BUN, PLASMA | 20. | mg/dL | | | | (LAB) | | | | | + + + + + + | CREATININE | 1. | mg/dL | | | | PLASMA | | | | | | (LAB) | | | | | + + + + + + | CALCIUM, | 10.1 | mg/dL | | | | PLASMA | | | | | | (LAB) | | | | | + + + + + + | PHOSPHORUS, | 4.3 (H) | mg/dL | | | | PLASMA | | | | | | (LAB) | | | | | + + + + + + | AST(SGOT) | 19. | U/L | | | + + + + + + | ALK PHOS | 59. | U/L | | | + + + + + + | BILIRUBIN | 0.1 | mg/dL | | | | DIRECT | | | | | + + + + + + | BILIRUBIN | 0.4 | mg/dL | | | | TOTAL | | | | | + + + + + + | TOTAL | 7.1 | GM/DL | | | | PROTEIN, | | | | | | PLASMA | | | | | | (LAB) | | | | | + + + + + + | ALBUMIN, | 4.3 | GM/DL | | | | PLASMA | | | | | | (LAB) | | | | | + + + + + + + + | Specimen | + + | | + + + + + + + | Performing | Address | City/State/Zipcode | Phone Number | | Organization | | | | + + + + + | [facility] | [address] | [place] [address] | | | PATHOLOGY | [address] | | | + + + + + IMMUNOLOGY TESTS 3 (05/09/1996 1:04 PM PDT) + + + + + + | Component | Value | Ref Range | Performed | Pathologist | | | | | At | Signature | + + + + + + | IGE SINGLE | LATEX | | | | | ANTIGEN, | | | | | | SERUM | | | | | + + + + + + | ANIMAL MIX | NEG | IgE(kU/L) | | | | IGE | | | | | + + + + + + | DUSTMITES | NEG | IgE(kU/L) | | | | DF/DP IGE | | | | | + + + + + + | GRASS MIX | NEG | IgE(kU/L) | | | | IGE | | | | | + + + + + + | MOLD MIX | NEG | IgE(kU/L) | | | | IGE | | | | | + + + + + + | TREE MIX | NEG | IgE(kU/L) | | | | IGE | | | | | + + + + + + | WEED MIX | NEG | IgE(kU/L) | | | | IGE | | | | | + + + + + + | ANTIGEN, | NEG | CLASS | | | | IGE LEVEL | | | | | + + + + + + | TOTAL SERUM | 20. | U/mL | | | | IGE | | | | | + + + + + + + + | Specimen | + + | | + + + + + + + | Performing | Address | City/State/Zipcode | Phone Number | | Organization | | | | + + + + + | [facility] | [address] | [place] [address] | | | PATHOLOGY | [address] | | | + + + + + documented in this encounter Visit Diagnoses Not on filedocumented in this encounter"
--- OUTSIDE RECORDS SUMMARY | ~2019-05-19 | XMS | Encounter Summary ---
Demographics + + + | Address | [address] | | | [place] [address] | + + + | Home Phone | | + + + | Preferred Language | Unknown | + + + | Marital Status | Single | + + + | Samaritan Affiliation | LDS | + + + | Race | White | + + + | Ethnic Group | Not or | + + + Author + + + | Author | [facility] | + + + | Organization | [facility] | + + + | Address | Unknown | + + + | Phone | Unavailable | + + + Support + + + + + | Name | Relationship | Address | Phone | + + + + + | Huber Chen | ECON | [address] | | | | | [place] [address] | | + + + + + Care Team Providers + +------+ + | Care Food Quality Technician Name | Role | Phone | [address] | | | | | | [place], [place] | | | | | | [phone] | | | +--------+ + + + [...]
--- OUTSIDE RECORDS SUMMARY | ~2019-05-19 | XMS | Encounter Summary ---
Demographics + + + | Address | [address] | | | PATIENT FINANCIAL SERVICES SPECIALIST [place] [address] | + + + | Home Phone [...] + + + | Author | [facility] | + + + | Organization | [facility] | + + + | Address | Unknown | + + + | Phone | Unavailable | + + + Support + + + + + | Name | Relationship | Address | Phone | + + + + + | Huber Chen | ECON | [address] | | | | | [place] [address] | | + + + + + Care Team Providers + +------+ + | Care Library Circulation Technician Name | Role | Phone | [...] + + | 01/01/ | Telephone | [place] [facility] | Dylan Rawls, | Medication side | | 2008 | | Center at [facility] [address] | MD [address] | effects present (pt. | | | | [address] | [place], [place] | feels that it is | | | | Mailcode: [facility] | [address] | the Philipe tht is | | | | [facility] | [phone] | causing her | | | | and Healing, | | headaches ) | | | | Building 1, 5th | | | | | | Floor [place], [place] | | | | | | [address] | | | | | | [phone] | | | +--------+ + + + [...]
--- OUTSIDE RECORDS SUMMARY | ~2019-05-19 | XMS | Encounter Summary ---
Demographics + + + | Address | [address] [facility] [facility] [facility] | | | STRUCTURAL ANALYST [place] [address] | + + + | Home Phone | | + + + | Preferred Language | Unknown | + + + | Marital Status | Single | + + + | Gnosticism Affiliation | LDS | + + + [...] | | | | | [place] [address] | | + + + + + Care Team Providers + +------+ + | Care Pipe Welder Name | Role | Phone | + +------+ + PCP | Unavailable | + +------+ + Reason for Visit + + + | Reason | Comments | + + + | Pre-op evaluation | | + + + Encounter Details +--------+ + + + + | Date | Type | Department | Care Team | Description | +--------+ + + + + | /10/ | Pharmacy Intake Technician | Otolaryngology | John Arroyo MD | Chronic Maxillary | | 2007 | | General Services at | | Sinusitis (Primary | | | | [facility] [address] | | Dx) | | | | [address] | | | | | | Mailcode: PV01 | | | | | | Physician's Spenser | | | | | | [place], [place] | | | | | | [address] | | | | | | [phone] | | | +--------+ + + + [...] Patient Instructions Patient Instructions John Arroyo - 07/28/2007 8:00 AM PSTRegistration Locations (please check in at one of the following registration desks prior to surgery) For surgeries scheduled to take place on the [place] at the [facility]: Surgeries scheduled in the [facility] ( [facility]): registration is located on the 4th floor of [facility] (Day Surgery). Surgeries scheduled in the [facility]: registration is located on the 9th floor. Surgeries scheduled in [facility]: registration is located on the 6th floor. Surgeries scheduled in the [facility]: registration is located i n the [facility] on the first floor. For surgeries scheduled to take place at the [facility]: registration is l ocated on the 4th floor (Surgery Center). Registration Process for all Admissions/Surgeries Please bring your insurance card(s) with you and be prepared to pay any co-payment, co-insu wandy or deposit that may be required. Once you arrive at the registration desk, you will be interviewed by a Patient Access Servi ce Specialist (DAVI). Demographics will be verified (example: name, date [...] Smoking Cessation Brochure. documented in this encounter Plan of Treatment Not on filedocumented as of this encounter Visit Diagnoses + + | Diagnosis | + + | Chronic maxillary sinusitis - Primary | + + documented in this encounter"
--- OUTSIDE RECORDS SUMMARY | ~2019-05-19 | XMS | Encounter Summary ---
Demographics + + + | Address | [address] | | | CREAM TESTER [place] [address] | + + + | Home Phone [...] | | | | | [place] [address] | | + + + + + Care Team Providers + +------+ + | Care Clerk Guide Name | Role | Phone | + +------+ + PCP | Unavailable | + +------+ + Reason for Visit + + + | Reason | Comments | + + + | Administrative Forms | Jesusita still needs a letter releasing her back to work. She can | | | not have it state light duty since there is no loght duty where | | | she works. She wanted to get a letter that states that she can | | | return back to work today. | + + + Encounter Details +--------+ + + + + | Date | Type | Department | Care Team | Description | +--------+ + + + + | 08/09/ | Telephone | [place] [facility] | Dylan Rawls, | Administrative Forms | | 2007 | | Center at [facility] [address] | MD [address] | (Jesusita still needs | | | | [address] | [facility] [place] | a letter releasing | | | | Mailcode: [facility] | [address] | her back to work. | | | | [facility] | [phone] | She can not have it | | | | and Healing, | | state light duty | | | | Building [address] | | since there is no | | | | Floor [facility] [place] | | loght duty where she | | | | [address] | | works. She wanted | | | | [phone] | | to get a letter that | | | | | | states that she can | | | | | | return back to work | | | | | | today.) | +--------+ + + + + Social [...]
--- OUTSIDE RECORDS SUMMARY | ~2019-05-19 | XMS | Encounter Summary ---
Demographics + + + | Address | [address] | | | APARTMENT MANAGER [place] [address] | + + + | Home Phone | | + + + | Preferred Language | Unknown | + + + | Marital Status | Single | + + + | Temple Affiliation | LDS | + + + | Race | White | + + + | Ethnic Group | Not or | + + + Author + + + | Author | [facility] | + + + | Organization | [facility] | + + + | Address | Unknown | + + + | Phone | Unavailable | + + + Support + + + + + | Name | Relationship | Address | Phone | + + + + + | Huber Chen | ECON | [address] | | | | | [place] [address] | | + + + + + Care Team Providers + +------+ + | Care Plastics Bench Mechanic Name | Role | Phone | [...] 07/21/ | Office | Preoperative | 1, [facility] Registered Dietitian [address] | Chronic Maxillary | | 2007 | Visit | Medicine Clinic at | [facility] [address] | Sinusitis (Primary | | | | [facility] 4th Floor [address] | [place] [address] | Dx) | | | | [address] | | | | | | Mailcode: CH4S | | | | | | [facility] | | | | | | and Healing, | | | | | | Building 1,4th Floor | | | | | | [place], [place] | | | | | | [address] | | | | | | [phone] | | | +--------+---------+ + + + [...] Scanned [facility],4th [place] [address] documented in this encoun ter Plan of Treatment Not on filedocumented as of this encounter Visit Diagnoses + + | Diagnosis | + + | Chronic maxillary sinusitis - Primary | + + documented in this encounter"
--- OUTSIDE RECORDS SUMMARY | ~2019-05-19 | XMS | Encounter Summary ---
Demographics + + + | Address | [address] [facility] [facility] | | | DOOR OPENER [place] [address] | + + + | Home Phone | | + + + | Preferred Language | Unknown | + + + | Marital Status | Single | + + + | Buddhist Affiliation | LDS | + + + [...] MAJOR | | | | | [place] [address] | | + + + + + Care Team Providers + +------+ + | Care Second Steward Name | Role | Phone | + [...] + + + + | /10/ | Zigzag Appliquer | Otolaryngology | John Arroyo MD | Chronic Maxillary | | 2007 | | General Services at | | Sinusitis (Primary | | | | [facility] [address] | | Dx) | | | | [address] | | | | | | Mailcode: PV01 | | | | | | Phys[address]enser | | | | | | [place], [place] | | | | | | [address] | | | | | | [phone] | | | +--------+ + + + [...] surgeries scheduled to take place on the [place] at the [facility]: Surgeries scheduled in the [facility] ( [facility]): registration is located on the 4th floor of [facility] (Day Surgery). Surgeries scheduled in the [facility]: registration is located on the 9th floor. Surgeries scheduled in [facility]: registration is located on the 6th floor. Surgeries scheduled in the [facility]: registration is located i n the [facility] on the first floor. For surgeries scheduled to take place at the [facility]: registration is l ocated on the 4th [...]
--- OUTSIDE RECORDS SUMMARY | ~2019-05-19 | XMS | Encounter Summary ---
Demographics + + + | Address | [address] [facility] | | | BLACKSMITH ASSISTANT [place] [address] | + + + | Home Phone | | + + + | Preferred Language | Unknown | + + + | Marital Status | Single | + + + | Mormonism Affiliation | LDS | + + + | Race | White | + + + | Ethnic Group | Not or | + + + Author + + + | Author | [facility] | + + + | Organization | [facility] | + + + | Address | Unknown | + + + | Phone | Unavailable | + + + Support + + + + + | Name | Relationship | Address | Phone | + + + + + | Huber Chen | ECON | [address] | | | | | [place] [address] | | + + + + + Care Team Providers + +------+ + | Care Outside Collector Name | Role | Phone | + +------+ + PCP | Unavailable | + +------+ + Reason for Visit + + + | Reason | Comments | + + + | Follow-up visit | has had sinus infections since last visit, congestion | + + + Office Visit - E/M Services (Routine) +--------+--------+ + + + + | Status | Reason | Specialty | Diagnoses / | Referred By | Referred To | | | | | Procedures | Contact | Contact | +--------+--------+ + + + + | Closed | | Otolaryngolog | | Vatsia, | Curly, | | | | y | | Eda Kelly, | Dylan Falcon MD | | | | | | ALLERGY | [address] | | | | | | [address] ASTHMA | [address] | | | | | | [place] [address] | [place], [place] | | | | | | [facility] | [address] | | | | | | PL | Phone: | | | | | | SUE | [phone] | | | | | | [place] [address] | Fax: | | | | | | Phone: | [phone] | | | | | | [phone] | | | | | | | Fax: | | | | | | | [phone] | | +--------+--------+ + + + + Encounter Details +--------+---------+ + + + | Date | Type | Department | Care Team | Description | +--------+---------+ + + + | 11/23/ | Office | [place] [facility] | Dylan Rawls, | Chronic Ethmoidal | | 2007 | Visit | Center at [facility] [address] | MD [address] | Sinusitis; Chronic | | | | [address] | [place], [place] | Maxillary Sinusitis | | | | Mailcode: [facility] | [address] | | | | | [facility] | [phone] | | | | | and Healing, | | | | | | [facility] 1, 5th | | | | | | Floor [place], [place] | | | | | | [address] | | | | | | [phone] | | | +--------+---------+ + + + [...] documented as of this encounter Progress Notes Dian King, Christopher Carlin - 11/24/2007 1:40 PM PDTFormatting of this note might be different fro m the original. HISTORY: Jesusita Chen is a 47 y.o. female who presents to the [facility] for fol low up of Chronic rhinosinusitis and Septal deviation. She is 4 months s/p L FESS, septopla sty, inferior turbinate reduction. She is feeling well without significant difficulties. Xavier acevedo has required single courses of avelox and biaxin (antibiotic dose x 2 weeks) and feels bet ter after the biaxin. No associated symptoms are present. She denies abnormal discharge, pa in, or unusual bleeding. Current outpatient medications Medication Sig Omeprazole (PRILOSEC) 20 mg Oral Capsule, Delayed Release(E.C.) take 1 capsule (20 mg) by oral route once daily before a meal Sodium Bicarb-Sodium Chloride (AYR SINUS RINSE) Nasal Kit None Entered Triamcinolone Acetonide (NASACORT) 55 mcg/Actuation Nasal Aerosol inhale 2 sprays in ea ch nostril by intranasal route once daily PHYSICAL EXAM: Ear, nose, and throat exam [...] mucosal lesion. The pharyngeal mucosa reveals no lesions. Lips a nd tongue are within normal limits. Neck reveals no mass, adenopathy, or thyromegaly. Sali vary glands are normal to palpation. PROCEDURE: Diagnostic Nasal Endoscopy Anesthesia: Lidocaine 4% topical anesthetic was placed. Description of Procedure: A rigid endoscope was utilized to evaluate the sinonasal cavitie s, mucosa, sinus ostia and turbinates. Overall, moderate mucosal inflammation is observed. No purulence or polyps noted. Bilateral inferior turbinate sutures removed without difficult y. ASSESSMENT: Chronic rhinosinusitis and Septal deviation PLAN: Continue with current therapies. We've also added pred-forte on a PRN basis for comp laints of nasal congestion despite nasacorrt. We've discussed the use of prednisolone ophtha lmic drops used intranasally and the issues and risks/benefits associated with it. Question s were answered. The plan is to use it in a judicious and tapering fashion. Return for follow up in 3 month(s). I personally interviewed the patient, duplicated the [...] | + + +--------+ + + | AR NASAL | Procedures | Routin | Chronic Ethmoidal | Ordered: 11/25/2007 | | ENDOSCOPY,DX | | e | Sinusitis Chronic | | | | | | Maxillary Sinusitis | | + + +--------+ + + documented as of this encounter Visit Diagnoses + + | Diagnosis | + + | Chronic ethmoidal sinusitis | + + | Chronic maxillary sinusitis | + + documented in this encounter"
--- OUTSIDE RECORDS SUMMARY | ~2019-05-19 | XMS | Encounter Summary ---
Demographics + + + | Address | [address] | | | RADIATION ONCOLOGIST [place] [address] | + + + | Home Phone | | + + + | Preferred Language | Unknown | + + + | Marital Status | Single | + + + | Judaism Affiliation | LDS | + + + [...] | | | | | [place] [address] | | + + + + + Care Team Providers + +------+ + | Care French Edge Operator Name | Role | Phone | + +------+ + | Cachorro Maddox DO | PCP | | + +------+ + Encounter Details +--------+ + + + + | Date | Type | Department | Care Team | Description | +--------+ + + + + | 07/21/ | Ancillary | Registration [id number] | Sheldon Rawls MD | | | 2007 | Registratio | [facility] | [address] [facility] | | | | [address] | [address] Mailcode: RPB07 | [facility], [place] | | | | | [place], [place] | [address] | | | | | [address] | [phone] | | | | | [phone] | | | +--------+ + + + [...]
--- OUTSIDE RECORDS SUMMARY | ~2019-05-19 | XMS | Encounter Summary ---
Demographics + + + | Address | [address] [facility] [facility] | | | PERIODONTAL ASSISTANT [place] [address] | + + + | Home Phone | | + + + | Preferred Language | Unknown | + + + | Marital Status | Single | + + + | Anglican Affiliation | LDS | + + + [...] Huber Chen | ECON | [address] | | | | | [place] [address] | | + + + + + Care Team Providers + +------+ + | Care Boat Worker Name | Role | Phone | + [...] | | | | CENTER [address] | [facility] [place] | | | | | | [place] | [address] | | | | | | PL | Phone: | | | | | | SUE | [phone] | | | | | | [place] [address] | Fax: | | | | | | Phone: | [phone] | | | | | | [phone] | | | | | | | Fax: | | | | | | | [phone] | | +--------+--------+ + + + + Encounter Details +--------+---------+ + + + | Date | Type | Department | Care Team | Description | +--------+---------+ + + + | 08/04/ | Office | [place] [facility] | Dylan Rawls, | Chronic Ethmoidal | | 2007 | Visit | Center at [facility] [address] | MD [address] | Sinusitis; Chronic | | | | [address] | [place], [place] | Maxillary Sinusitis | | | | Mailcode: [place] | [address] | | | | | [facility] | [phone] | | | | | and Healing, | | | | | | [facility] | | | | | | [place], [place] | | | | | | [address] | | | | | | [phone] | | | +--------+---------+ + + + [...] areas of crusting. She will call w [facility] any problems in the meantime. I personally interviewed the patient, duplicated the pertinent parts of the physical examin ation and procedure and personally formulated the plan. I have reviewed, entered my finding s, and agree with the above documentation. Dylan Rawls M.D., M.P.H., F.A.C.S. Director, [facility] Professor and Chief, Rhinology and Sinus Surgery Department of Otolaryngology/Head and Neck Surgery documented in this encou nter Plan of Treatment + + +--------+ + + | Name | Type | Priori | Associated Diagnoses | Order Schedule | | | | ty | | | + + +--------+ + + | CA NASAL | Procedures | Routin | Chronic [...]
--- OUTSIDE RECORDS SUMMARY | ~2019-05-19 | XMS | Encounter Summary ---
Demographics + + + | Address | [address] [facility] | | | STUDENT SERVICES ADVISOR [place] [address] | + + + | Home Phone | | + + + | Preferred Language | Unknown | + + + | Marital Status | Single | + + + | Scientologist Affiliation | LDS | + + + | Race | White | + + + | Ethnic Group | Not or | + + + Author + + + | Author | [facility] | + + + | Organization | [facility] | + + + | Address | Unknown | + + + | Phone | Unavailable | + + + Support + + + + + | Name | Relationship | Address | Phone | + + + + + | Huber Chen | ECON | [address] | | | | | [place] [address] | | + + + + + Care Team Providers + +------+ + | Care Wood Mill Supervisor Name | Role | Phone | + +------+ + PCP | Unavailable | + +------+ + Encounter Details +--------+ + + + + | Date | Type | Department | Care Team | Description | +--------+ + + + + | 07/29/ | Manager Auto | Otolaryngology | John Arroyo MD | | | 2007 | | General Services at | | | | | | [facility] [address] [facility] | | | | | | [address] | | | | | | Mailcode: PV01 | | | | | | Physiciantereso Dueñas | | | | | | [place], [place] | | | | | | [address] | | | | | | [phone] | | | +--------+ + + + [...]
--- OUTSIDE RECORDS SUMMARY | ~2019-05-19 | XMS | Encounter Summary ---
Demographics + + + | Address | [address] | | | SANITARY NAPKIN MACHINE TENDER [place] [address] | + + + | Home Phone [...] | | | | | [place] [address] | | + + + + + Care Team Providers + +------+ + | Care Tieing Machine Operator Name | Role | Phone [...] | Activity | [address] | [address] | | | | | [place] Mailcode: [id number] | [place], [place] | | | | | [place], [place] | [address] | | | | | [address] | [phone] | | | | | [phone] | | | +--------+ + + + [...] in | | | | | | aggregate.Casualty Claim Adjuster | | | | | | sections [...] | + + + + + | [facility] | [address] [place] [address] | [place] [address] | | | PATHOLOGY | SOLOMON BUTLER | | | + + + + + | [facility] | [address] [place] [address] | [place] [address] | | | PATHOLOGY | SOLOMON BUTLER | | | + + + + + documented in this encounter Visit Diagnoses Not on filedocumented in this encounter
--- OUTSIDE RECORDS SUMMARY | ~2019-05-19 | XMS | Encounter Summary ---
Demographics + + + | Address | [address] [facility] [facility] [facility] | | | PAVING FOREMAN [place] [address] | + + + | Home Phone [...] Author + + + | Author | [facility] | + + + | Organization | [facility] | + + + | Address | Unknown | + + + | Phone | Unavailable | + + + Support + + + + + | Name | Relationship | Address | Phone | + + + + + | Huber Chen | ECON | [address] | | | | | [place] [address] | | + + + + + Care Team Providers + +------+ + | Care Tv News Director Name | Role | Phone | [...] Rd | | | | | | [place], [place] | | | | | | [address] | | | +--------+ + + + [...]
--- OUTSIDE RECORDS SUMMARY | ~2019-05-19 | XMS | Encounter Summary ---
Demographics + + + | Address | [address] [facility] [address] [facility] | | | [place] [address] | + + + | Home Phone | | + + + | Preferred Language | Unknown | + + + | Marital Status | Single | + + + | Mandaen Affiliation | 1027 | + + + | Race | Unknown | + + + | Ethnic Group | Unknown | + + + Author + + + | Author | [facility] | | | and [place] | + + + | Organization | [facility] | | | [...] Providers + +------+ + | Care Director Of Outreach Name | Role | Phone | + [...] Medication Refill | | 2019 | | [facility] | E, DO [address] | (Rx for Sinus inf?) | | | | MEDICAL [facility] | [place], [place] | | | | | [address] [place], | [address] | | | | | [place] [address] | [phone] | | | | | [phone] | | | +--------+--------+ + + + [...]
--- OUTSIDE RECORDS SUMMARY | ~2019-05-19 | XMS | Encounter Summary ---
Demographics + + + | Address | [address] [facility] | | | DIRECTOR OF INDUSTRIAL RELATIONS [place] [address] | + + + | Home Phone | | + + + | Preferred Language | Unknown | + + + | Marital Status | Single | + + + | Mormon Affiliation | LDS | + + + | Race | White | + + + | Ethnic Group | Not or | + + + Author + + + | Author | [facility] | + + + | Organization | [facility] | + + + | Address | Unknown | + + + | Phone | Unavailable | + + + Support + + + + + | Name | Relationship | Address | Phone | + + + + + | Huber Chen | ECON | [address] | | | | | [place] [address] | | + + + + + Care Team Providers + +------+ + | Care Automotive Sales Executive Name | Role | Phone | + +------+ + PCP | Unavailable | + +------+ + Reason for Visit + + + | Reason | Comments | + + + | Discussion | pt is taking Medication and is having trouble breathing. Would | | | like to speak with Mercedes Montoya. | + + + Encounter Details +--------+ + + + + | Date | Type | Department | Care Team | Description | +--------+ + + + + | 07/23/ | Telephone | [place] [facility] | Dylan Rawls, | Discussion (pt is | | 2008 | | Center at [facility] [address] | MD [address] | taking Medication | | | | [address] | [place], [place] | and is having | | | | Mailcode: [facility] | [address] | trouble breathing. | | | | [facility] | [phone] | Would like to speak | | | | and Healing, | | with Mercedes Montoya.) | | | | [address], | | | | | | [place], [place] | | | | | | [address] | | | | | | [phone] | | | +--------+ + + + [...]
--- OUTSIDE RECORDS SUMMARY | ~2019-05-19 | XMS | Encounter Summary ---
Demographics + + + | Address | [address] [facility] | | | DIRECTOR OF DANCE [place] [address] | + + + | Home Phone | | + + + | Preferred Language | Unknown | + + + | Marital Status | Single | + + + | Anabaptist Affiliation | LDS | + + + [...] | | | | | [place] [address] | | + + + + + Care Team Providers + +------+ + | Care Rig Hand Name | Role | Phone | + [...] Ave | | | | | | [address] | [place], [place] | | | | | | [facility] | [address] | | | | | | PL | Phone: | | | | | | SUE | [phone] | | | | | | [place] [address] | Fax: | | | | | | Phone: | [phone] | | | | | | [phone] | | | | | | | Fax: | | | | | | | [phone] | | +--------+--------+ + + + + Encounter Details +--------+---------+ + + + | Date | Type | Department | Care Team | Description | +--------+---------+ + + + | 11/23/ | Office | [facility] | Dylan Rawls, | Chronic Ethmoidal | | 2007 | Visit | Center at [facility] [address] | MD [address] | Sinusitis; Chronic | | | | [address] | [place], [place] | Maxillary Sinusitis | | | | Mailcode: [facility] | [address] | | | | | [facility] | [phone] | | | | | and Healing, | | | | | | [facility] 1, 5th | | | | | | Floor [place], [place] | | | | | | [address] | | | | | | [phone] | | | +--------+---------+ + + + [...] 47 y.o. female who presents to the [facility] for fol low up of [...] documentation. Dylan Rawls M.D., M.P.H., F.A.C.S. Director, [facility] Professor and Chief, Rhinology and Sinus Surgery Department of Otolaryngology/Head and Neck Surgery documented in this encou nter Plan of Treatment + + +--------+ + + | Name | Type | Priori | Associated Diagnoses | Order Schedule | | | | ty | | | + + +--------+ + + | [place] NASAL | Procedures | Routin | Chronic [...]
--- OUTSIDE RECORDS SUMMARY | ~2019-05-19 | XMS | Encounter Summary ---
Demographics + + + | Address | [address] [facility] | | | MILK DELIVERER [place] [address] | + + + | Home Phone [...] Author + + + | Author | [facility] | + + + | Organization | [facility] | + + + | Address | Unknown | + + + | Phone | Unavailable | + + + Support + + + + + | Name | Relationship | Address | Phone | + + + + + | Huber Chen | ECON | [address] | | | | | [place] [address] | | + + + + + Care Team Providers + +------+ + | Care Shift Engineer Name | Role | Phone | + +------+ + | Cachorro Maddox DO | PCP | | + +------+ + Encounter Details +--------+ + + + + | Date | Type | Department | Care Team | Description | +--------+ + + + + | 04/10/ | Document-Sc | Dermatology at | Eileen Teixeira, | | | 2015 | anned | [place] | ,PhD [address] | | | | | [address] | [place] | | | | | [place] | [address] | | | | | [address] | [phone] | | | | | [phone] | | | +--------+ + + + [...]
--- OUTSIDE RECORDS SUMMARY | ~2019-05-19 | XMS | Encounter Summary ---
Demographics + + + | Address | [address] [facility] [place] | | | [place] [address] | + + + | Home Phone | | + + + | Preferred Language | Unknown | + + + | Marital Status | Single | + + + | Taoism Affiliation | 1027 | + + + | Race | Unknown | + + + | Ethnic Group | Unknown | + + + Author + + + | Author | [facility] | | | and [place] | + + + | Organization | [facility] | | | [...] Team Providers + +------+ + | Care Grade School Teacher Name | Role | Phone | + [...] Description | +--------+--------+ + + + | 04/27/ | Refill | [facility] | Cachorro Maddox | Medication Refill | | 2018 | | [facility] | E, DO [address] | | | | | MEDICAL CLINIC [address] | [place], [place] | | | | | [address] [place], | [address] | | | | | [place] [address] | [phone] | | | | | [phone] | | | +--------+--------+ + + + [...]
--- OUTSIDE RECORDS SUMMARY | ~2019-05-19 | XMS | Encounter Summary ---
Demographics + + + | Address | [address] [facility] | | | EXTRACTOR PULLER [place] [address] | + + + | Home Phone [...] Author + + + | Author | [facility] | + + + | Organization | [facility] | + + + | Address | Unknown | + + + | Phone | Unavailable | + + + Support + + + + + | Name | Relationship | Address | Phone | + + + + + | Huber Chen | ECON | [address] | | | | | [place] [address] | | + + + + + Care Team Providers + +------+ + | Care Shoe Lay Out Planner Name | Role | Phone | [...] | | Sinus Services [address] | PA-C [address] | management | | | | [address] | [place], [place] | | | | | Rd Mailcode: OP01 | [address] | | | | | Physician's | [phone] | | | | | [place], | | | | | | [place] [address] | | | | | | [phone] | | | +--------+ + + + [...]
--- OUTSIDE RECORDS SUMMARY | ~2019-05-19 | XMS | Encounter Summary ---
Demographics + + + | Address | [address] [facility] | | | SHINGLE PACKER [place] [address] | + + + | Home Phone [...] Author + + + | Author | [facility] | + + + | Organization | [facility] | + + + | Address | Unknown | + + + | Phone | Unavailable | + + + Support + + + + + | Name | Relationship | Address | Phone | + + + + + | Huber Chen | ECON | [address] | | | | | [place] [address] | | + + + + + Care Team Providers + +------+ + | Care Diamond Grinder Name | Role | Phone | [...] Ave | | | | | | [address] | [place], [place] | | | | | | [place] | [address] | | | | | | PL | Phone: | | | | | | SUE, | [phone] | | | | | | [place] [address] | Fax: | | | | | | Phone: | [phone] | | | | | | [phone] | | | | | | | Fax: | | | | | | | [phone] | | +--------+--------+ + + + + Encounter Details +--------+---------+ + + + | Date | Type | Department | Care Team | Description | +--------+---------+ + + + | 09/21/ | Office | [facility] | Mercedes Montoya, | Chronic Ethmoidal | | 2008 | Visit | Center at [facility] [address] | PA-C [address] | Sinusitis; Chronic | | | | [address] | Ave [place], [place] | Maxillary Sinusitis | | | | Mailcode: [id number] | [address] | | | | | [facility] | [phone] | | | | | and Healing, | | | | | | Building | | | | | | Floor [place], [place] | | | | | | [address] | | | | | | [phone] | | | +--------+---------+ + + + [...] 48 y.o. female who presents to the [facility] for follow up of Chronic [...] | + + +--------+ + + | [place] NASAL | Procedures | Routin | Chronic Ethmoidal | Ordered: 09/26/2008 | | ENDOSCOPY,DX | | e | Sinusitis Chronic | | | | | | Maxillary Sinusitis | | + + +--------+ + + | [place] NASAL | Procedures | Routin | Chronic [...]
--- OUTSIDE RECORDS SUMMARY | ~2019-05-19 | XMS | Encounter Summary ---
Demographics + + + | Address | [address] [facility] | | | [place] [address] | + + + | Home Phone | | + + + | Preferred Language | Unknown | + + + | Marital Status | Single | + + + | Temple Affiliation | 1027 | + + + | Race | Unknown | + + + | Ethnic Group | Unknown | + + + Author + + + | Author | [facility] | | | and [place] | + + + | Organization | [facility] | | | and [...] Team Providers + +------+ + | Care Patients Transporter Name | Role | Phone | + [...] Refill | | 2018 | | [facility] | E, DO [address] | | | | | MEDICAL CLINIC [address] | [place], [place] | | | | | [address] [place], | [address] | | | | | [place] [address] | [phone] | | | | | [phone] | | | +--------+--------+ + + + [...]
--- OUTSIDE RECORDS SUMMARY | ~2019-05-19 | XMS | Encounter Summary ---
Demographics + + + | Address | [address] [facility] [facility] | | | CUSTOMER SUPPORT PROFESSIONAL [place] [address] | + + + | Home Phone | | + + + | Preferred Language | Unknown | + + + | Marital Status | Single | + + + | Holiness Affiliation | LDS | + + + [...] | | | | | [place] [address] | | + + + + + Care Team Providers + +------+ + | Care Maintenance Instructor Name | Role | Phone | + [...] + + | 10/30/ | Telephone | [place] [facility] | Brenden Rawls | Sinusitis (she has a | | 2007 | | Center at [facility] [address] | [address] | sinus infection and | | | | [address] | [address] | would like a call | | | | Mailcode: CH5E | [place] [address] | back) | | | | [facility] | | | | | | and Healing, | | | | | | Building 1, 5th | | | | | | Floor [place], [place] | | | | | | [address] | | | | | | [phone] | | | +--------+ + + + [...]
--- OUTSIDE RECORDS SUMMARY | ~2019-05-19 | XMS | Encounter Summary ---
Demographics + + + | Address | [address] [facility] | | | INTENSIVE CARE MEDICINE SPECIALIST [place] [address] | + + + | Home Phone [...] | | | | | [place] [address] | | + + + + + Care Team Providers + +------+ + | Care Internship Coordinator Name | Role | Phone | [...] Ave | | | | | | [address] | [place], [place] | | | | | | [place] | [address] | | | | | | PL | Phone: | | | | | | SUE, | [phone] | | | | | | [place] [address] | Fax: | | | | | | Phone: | [phone] | | | | | | [phone] | | | | | | | Fax: | | | | | | | [phone] | | +--------+--------+ + + + + Encounter Details +--------+---------+ + + + | Date | Type | Department | Care Team | Description | +--------+---------+ + + + | 07/27/ | Office | [place] [facility] | Mercedes Montoya, | Chronic Ethmoidal | | 2008 | Visit | Center at [facility] [address] | PA-C [address] | Sinusitis; Chronic | | | | [address] | Ave [place], [place] | Maxillary Sinusitis | | | | Mailcode: [id number] | [address] | | | | | [facility] | [phone] | | | | | and Healing, | | | | | | Building | | | | | | Floor [place], [place] | | | | | | [address] | | | | | | [phone] | | | +--------+---------+ + + + [...] 48 y.o. female who presents to the [facility] for follow up of Chronic [...] | + + +--------+ + + | [place] NASAL | Procedures | Routin | Chronic [...]
--- OUTSIDE RECORDS SUMMARY | ~2019-05-19 | XMS | Clinical Summary ---
Demographics + + + | Address | [address] [facility] [address] [facility] [facility] | | | [place] [address] | + + + | Home Phone | | + + + | Preferred Language | Unknown | + + + | Marital Status | Single | + + + | Zoroastrian Affiliation | 1027 | + + + | Race | Unknown | + + + | Ethnic Group | Unknown | + + + Author + + + | Author | [facility] | | | and [place] | + + + | Organization | [facility] | | [...] Providers + +------+ + | Care Clinical Trial Leader Name | Role | Phone | + [...] +---------+--------+ | [place] | [place] | [id number] | 11/17/19 | [phone] | | [place] | | | [place] | | 17-Pre | 9 | | | | | | | sent | | | | + +--------+ +--------+ +---------+--------+ | [employer] | [employer] | [id number] | 05/16/ | [phone] | | Medica [...] [place] | | | 3 (Home) | [address] | + +--------+ +--------+ + + | Jesusita Chen | Person | Self | [birth year] | [address] | | | al/Fam | | 9 | [phone] | [place] | | | [place] | | | 3 (Home) | [address] | + +--------+ +--------+ + + Advance Directives Patient has advance care planning documents on file. For more information, please contact:[facility] and [facility] [place] [address]
--- OUTSIDE RECORDS SUMMARY | ~2019-05-19 | XMS | Encounter Summary ---
Demographics + + + | Address | [address] [facility] | | | ING[place] STRIP[place] [address] | + + + | Home Phone [...] | | | | | [place] [address] | | + + + + + Care Team Providers + +------+ + | Care Supervisor Coke Handling Name | Role | Phone | + [...] [id number] | | | | | | [place], [place] | | | | | | [address] | | | | | | [phone] | | | +--------+ + + + [...] | + + + + + | [facility] | [address] | [place] [address] | | | PATHOLOGY | [address] [...] | + + + + + | [facility] | [address] | [place] [address] | | | PATHOLOGY | [address] [...] | + + + + + | [facility] | [address] | [place] [address] | | | PATHOLOGY | [address] [...] | + + + + + | [facility] | [address] | [place] [address] | | | PATHOLOGY | [address] [...] | + + + + + | [facility] | [address] | [place] [address] | | | PATHOLOGY | [address] [...] | + + + + + | [facility] | [address] | [place] [address] | | | PATHOLOGY | [address] [...] | + + + + + | [facility] | [address] | [place] [address] | | | PATHOLOGY | [address] | | | + + + + + documented in this encounter Visit Diagnoses Not on filedocumented in this encounter"
--- OUTSIDE RECORDS SUMMARY | ~2019-05-19 | XMS | Clinical Summary ---
Demographics + + + | Address | [address] | | | [place] [address] | + + + | Home Phone | | + + + | Preferred Language | Unknown | + + + | Marital Status | Single | + + + | Hindu Affiliation | Unknown | + + + | Race | Unknown | + + + | Ethnic Group | Unknown | + + + Author + + + | Author | [facility] (Historical as of | | | 03-04-19) | + + + | Organization | [facility] (Historical as of | | | 03-04-19) [...] Team Providers + +------+ + | Care Printing Equipment Mechanic Apprentice Name | Role | Phone | [...]
--- OUTSIDE RECORDS SUMMARY | ~2019-05-19 | XMS | Encounter Summary ---
Demographics + + + | Address | [address] [facility] | | | [place] [address] | + + + | Home Phone | | + + + | Preferred Language | Unknown | + + + | Marital Status | Single | + + + | Confucianism Affiliation | 1027 | + + + | Race | Unknown | + + + | Ethnic Group | Unknown | + + + Author + + + | Author | [facility] | | | and [place] | + + + | Organization | [facility] | | | [...] Team Providers + +------+ + | Care Sr. Manager Name | Role | Phone | [...] Refill | | 2018 | | [facility] | E, DO [address] | | | | | MEDICAL CLINIC [address] | [place], [place] | | | | | [address] [place], | [address] | | | | | [place] [address] | [phone] | | | | | [phone] | | | +--------+--------+ + + + [...]
--- OUTSIDE RECORDS SUMMARY | ~2019-05-19 | XMS | Encounter Summary ---
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 [place] [address] | + + + | Home Phone | | + + + | Preferred Language | Unknown | + + + | Marital Status | Single | + + + | Bahai Affiliation | LDS | + + + [...] | | | | | [place] [address] | | + + + + + Care Team Providers + +------+ + | Care Machine Ii Coremaker Name | Role | Phone | + +------+ + PCP | Unavailable | + +------+ + Reason for Visit + + + | Reason | Comments | + + + | Medication requested | she is not having any relief with her current meds and wanted to | | | see about changing them | + + + Encounter Details +--------+ + + + + | Date | Type | Department | Care Team | Description | +--------+ + + + + | 12/18/ | Telephone | [facility] | Dylan Rawls, | Medication requested | | 2007 | | Center at [facility] [address] | MD [address] | (she is not having | | | | [address] | [place], [place] | any relief with her | | | | Mailcode: [facility] | [address] | current meds and | | | | [facility] | [phone] | wanted to see about | | | | and Healing, | | changing them) | | | | Building | | | | | | [place], [place] | | | | | | [address] | | | | | | [phone] | | | +--------+ + + + [...]
--- OUTSIDE RECORDS SUMMARY | ~2019-05-19 | XMS | Encounter Summary ---
Demographics + + + | Address | [address] [facility] | | | FREEDOM OF INFORMATION OFFICER [place] [address] | + + + | Home Phone [...] | | | | | [place] [address] | | + + + + + Care Team Providers + +------+ + | Care Assistant Professor Surgical Technology Name | Role | Phone | + [...] Ave | | | | | | [address] | [place], [place] | | | | | | [place] | [address] | | | | | | PL | Phone: | | | | | | SUE, | [phone] | | | | | | [place] [address] | Fax: | | | | | | Phone: | [phone] | | | | | | [phone] | | | | | | | Fax: | | | | | | | [phone] | | +--------+--------+ + + + + Encounter Details +--------+---------+ + + + | Date | Type | Department | Care Team | Description | +--------+---------+ + + + | 12/21/ | Office | [facility] [place] [facility] | Mercedes Montoya, | Chronic Ethmoidal | | 2008 | Visit | Center at [facility] [address] | PA-C [address] | Sinusitis; Chronic | | | | [address] | Ave [place], [place] | Maxillary Sinusitis | | | | Mailcode: [id number] | [address] | | | | | [facility] | [phone] | | | | | and Healing, | | | | | | Building | | | | | | Floor [place], [place] | | | | | | [address] | | | | | | [phone] | | | +--------+---------+ + + + [...] y.o. female who presents to the [facility] for fol low up of Chronic rhinosinusitis and S/P Sinus Surgery on 07/29/2007. She is feeling well wi thout significant difficulties. No associated symptoms are present. She denies abnormal di scharge, pain, or unusual bleeding. She is using Flonase, pred forte and saline irrigations on a daily basis. Current outpatient prescriptions Medication Sig fluticasone (FLONASE) 50 mcg/Actuation Nasal [place], Suspension Instill 2 Sprays into ea ch [...] | + + +--------+ + + | [place] NASAL | Procedures | Routin | Chronic [...]
--- OUTSIDE RECORDS SUMMARY | ~2019-05-19 | XMS | Encounter Summary ---
Demographics + + + | Address | [address] [facility] | | | HOUSEKEEPING MANAGER [place] [address] | + + + | Home Phone [...] + + + | Author | [facility] | + + + | Organization | [facility] | + + + | Address | Unknown | + + + | Phone | Unavailable | + + + Support + + + + + | Name | Relationship | Address | Phone | + + + + + | Huber Chen | ECON | [address] | | | | | [place] [address] | | + + + + + Care Team Providers + +------+ + | Care Special Education Preschool Teacher Name | Role | Phone | + +------+ + PCP | Unavailable | + +------+ + Encounter Details +--------+ + + + + | Date | Type | Department | Care Team | Description | +--------+ + + + + | 07/29/ | Clinical Operations Manager | Otolaryngology | John Arroyo MD | | | 2007 | | General Services at | | | | | | PPV [address] [facility] | | | | | | [address] | | | | | | Mailcode: PV01 | | | | | | Physiciantereso Dueñas | | | | | | [place], [place] | | | | | | [address] | | | | | | [phone] | | | +--------+ + + + [...]
--- OUTSIDE RECORDS SUMMARY | ~2019-05-19 | XMS | Encounter Summary ---
Demographics + + + | Address | [address] [facility] | | | [place] [address] | + + + | Home Phone [...] + + + | Author | [facility] | + + + | Organization | [facility] | + + + | Address | Unknown | + + + | Phone | Unavailable | + + + Support + + + + + | Name | Relationship | Address | Phone | + + + + + | Huber Chen | ECON | [address] | | | | | [place] [address] | | + + + + + Care Team Providers + +------+ + | Care Rough Rib Grader Name | Role | Phone | + [...] + + | 08/09/ | Telephone | [facility] | Dylan Rawls, | Administrative Forms | | 2007 | | Center at [facility] [address] | MD [address] | (Jesusita still needs | | | | [address] | [facility] [place] | a letter releasing | | | | Mailcode: [facility] | [address] | her back to work. | | | | [facility] | [phone] | She can not have it | | | | and Healing, | | state light duty | | | | Building 1 | | since there is no | | | | Floor [facility] [place] | | loght duty where she | | | | [address] | | works. She wanted | | | | [phone] | | to get a letter that [...]
--- OUTSIDE RECORDS SUMMARY | ~2019-05-19 | XMS | Encounter Summary ---
Demographics + + + | Address | [address] [facility] | | | [place] [address] | + + + | Home Phone | | + + + | Preferred Language | Unknown | + + + | Marital Status | Single | + + + | Protestant Affiliation | 1027 | + + + | Race | Unknown | + + + | Ethnic Group | Unknown | + + + Author + + + | Author | [facility] | | | and [place] | + + + | Organization | [facility] | | | [...] Team Providers + +------+ + | Care Embroidery Assistant Name | Role | Phone | [...] 05/15/ | Refill | [facility] | Cachorro Maddox | Medication Refill | | 2018 | | [facility] | E, DO [address] | | | | | MEDICAL CLINIC [address] | [place], [place] | | | | | [address] [place], | [address] | | | | | [place] [address] | [phone] | | | | | [phone] | | | +--------+--------+ + + + [...]
--- OUTSIDE RECORDS SUMMARY | ~2019-05-19 | XMS | Encounter Summary ---
Demographics + + + | Address | [address] [facility] | | | INTRAVENOUS THERAPY NURSE [place] [address] | + + + | Home Phone [...] + + + | Author | [facility] | + + + | Organization | [facility] | + + + | Address | Unknown | + + + | Phone | Unavailable | + + + Support + + + + + | Name | Relationship | Address | Phone | + + + + + | Huber Chen | ECON | [address] | | | | | [place] [address] | | + + + + + Care Team Providers + +------+ + | Care Pipe Fitter Maintenance Name | Role | Phone | + [...] + + | 07/24/ | Telephone | [place] [facility] | Dylan Rawls, | Discussion (she | | 2008 | | Center at [facility] [address] | MD [address] | would like us to fax | | | | [address] | [place], [place] | in a letter to her | | | | Mailcode: CH5E | [address] | employer stating why | | | | [facility] | [phone] | she has not been | | | | and Healing, | | able to work the | | | | Building | | last few days) | | | | Floor [place], [place] | | | | | | [address] | | | | | | [phone] | | | +--------+ + + + [...]
--- OUTSIDE RECORDS SUMMARY | ~2019-05-19 | XMS | Encounter Summary ---
Demographics + + + | Address | [address] [facility] [address] | | | [place] [address] | + + + | Home Phone | | + + + | Preferred Language | Unknown | + + + | Marital Status | Single | + + + | Zoroastrianism Affiliation | LDS | + + + | Race | White | + + + | Ethnic Group | Not or | + + + Author + + + | Author | [facility] | + + + | Organization | [facility] | + + + | Address | Unknown | + + + | Phone | Unavailable | + + + Support + + + + + | Name | Relationship | Address | Phone | + + + + + | Huber Chen | ECON | [address] | | | | | [place] [address] | | + + + + + Care Team Providers + +------+ + | Care Ear Muff Assembler Name | Role | Phone | + +------+ + | Cachorro Maddox DO | PCP | | + +------+ + Encounter Details +--------+ + + + + | Date | Type | Department | Care Team | Description | +--------+ + + + + | 04/10/ | Document-Sc | Dermatology at | Eileen Teixeira, | | | 2015 | anned | [place] | ,PhD [address] | | | | | [address] | [place] | | | | | [place] | [address] | | | | | [address] | [phone] | | | | | [phone] | | | +--------+ + + + [...]
--- OUTSIDE RECORDS SUMMARY | ~2019-05-19 | XMS | Encounter Summary ---
Demographics + + + | Address | [address] | | | SALES MARKETING COORDINATOR [place] [address] | + + + | Home Phone [...] | | | | | [place] [address] | | + + + + + Care Team Providers + +------+ + | Care Manager Merchandising Name | Role | Phone | + [...] + + | 07/23/ | Telephone | [place] [facility] | Dylan Rawls, | Discussion (pt is | | 2008 | | Center at [facility] [address] | MD [address] | taking Medication | | | | [address] | [place], [place] | and is having | | | | Mailcode: [facility] | [phone] | trouble breathing. | | | | [facility] | [phone] | Would like to speak | | | | and Healing, | | with Mercedes Montoya.) | | | | [address], | | | | | | [place], [place] | | | | | | [address] | | | | | | [phone] | | | +--------+ + + + [...]
--- OUTSIDE RECORDS SUMMARY | ~2019-05-19 | XMS | Encounter Summary ---
Demographics + + + | Address | [address] | | | EQUIPMENT MAINTENANCE ENGINEER [place] [address] | + + + | Home Phone [...] Author | [facility] | + + + | Organization | [facility] | + + + | Address | Unknown | + + + | Phone | Unavailable | + + + Support + + + + + | Name | Relationship | Address | Phone | + + + + + | Huber Chen | ECON | [address] | | | | | [place] [address] | | + + + + + Care Team Providers + +------+ + | Care Spray Applicator Name | Role | Phone | + [...] + + | 12/31/ | Telephone | [place] [facility] | Dylan Rawls, | Headache (she is | | 2009 | | Center at [facility] [address] | [address] | having bad headaches | | | | [address] | [place], [place] | and would like a | | | | Mailcode: [facility] | [phone] | call to see what she | | | | [facility] | [phone] | can have called in | | | | and Healing, | | or what she needs to | | | | [place] [address] [facility] | | do) | | | | Floor [place], [place] | | | | | | [address] | | | | | | [phone] | | | +--------+ + + + [...]
--- OUTSIDE RECORDS SUMMARY | ~2019-05-19 | XMS | Encounter Summary ---
Demographics + + + | Address | [address] | | | DIRECTOR OF CAREER SERVICES [place] [address] | + + + | Home Phone [...] + + | Author | [facility] | + + + | Organization | [facility] | + + + | Address | Unknown | + + + | Phone | Unavailable | + + + Support + + + + + | Name | Relationship | Address | Phone | + + + + + | Huber Chen | ECON | [address] | | | | | [place] [address] | | + + + + + Care Team Providers + +------+ + | Care Circus Hand Name | Role | Phone | [...] + + | 08/24/ | Telephone | [facility] | Mercedes Montoya, | Discussion (Pt has | | 2008 | | Center at [facility] [address] | [place] [address] | sinus pain, and | | | | [address] | [place], [place] | headaches. would | | | | Mailcode: [facility] | [phone] | like to speak with | | | | [facility] | [phone] | ) | | | | and Healing, | | | | | | Building | | | | | | [place], [place] | | | | | | [address] | | | | | | [phone] | | | +--------+ + + + [...]
--- OUTSIDE RECORDS SUMMARY | ~2019-05-19 | XMS | Encounter Summary ---
Demographics + + + | Address | [address] | | | COOLING PAN TENDER [place] [address] | + + + | Home Phone | | + + + | Preferred Language | Unknown | + + + | Marital Status | Single | + + + | Yazdanism Affiliation | LDS | + + + | Race | White | + + + | Ethnic Group | Not or | + + + Author + + + | Author | [facility] | + + + | Organization | [facility] | + + + | Address | Unknown | + + + | Phone | Unavailable | + + + Support + + + + + | Name | Relationship | Address | Phone | + + + + + | Huber Chen | ECON | [address] | | | | | [place] [address] | | + + + + + Care Team Providers + +------+ + | Care Sport Intern Name | Role | Phone | + [...] + + | 12/18/ | Telephone | [facility] | Dylan Rawls, | Medication requested | | 2007 | | Center at [facility] [address] | MD [address] | (she is not having | | | | [address] | [place], [place] | any relief with her | | | | Mailcode: [facility] | [phone] | current meds and | | | | [facility] | [phone] | wanted to see about | | | | and Healing, | | changing them) | | | | Building | | | | | | [place], [place] | | | | | | [address] | | | | | | [phone] | | | +--------+ + + + [...]
[~2019-05-19 23:05] MED LIST changes: +BIOTIN1000 MCG PO; +CALCIUM500 MG PO; +COLLAGEN PLUS1 EACH PO; +GLUCOSAMINE &1 EAC1 PO; +IBU600 MG PO; +LISINOPRIL-HCT1 EAC2 PO; +MELATONIN1 MG PO; +TURMERIC 450-51 EACH PO; +VENTOLIN HFA18 GM INH; +VITAMIN B-6250 MG PO; +VITAMIN B125000 MCG PO; +VITAMIN C1000 MG PO; +ZYRTEC10 M3 PO
[2019-05-19] MEDS ORDERED: SUDOGEST30 MG PO (23:19)
[2019-05-19] MEDS ORDERED: SINGULAIR10 MG PO (23:20)
[2019-05-19] MEDS ORDERED: APPLE CIDER VI300 MG PO (23:23)
[2019-05-19] MEDS ORDERED: CETIRIZINE HCL10 M1 PO (23:24)
[2019-05-19] MEDS ORDERED: AMOXICILLIN500 MG PO (23:34)
== END 2019-05-19 23:56 | disposition home or self-care (01) ==
LOC: ED 23:05
DX: J02.9 Acute pharyngitis, unspecified (principal); I10 Essential (primary) hypertension; J45.909 Unspecified asthma, uncomplicated; Z91.040 Latex allergy status; Z88.1 Allergy status to other antibiotic agents; Z88.8 Allergy status to other drugs, medicaments and biological substances; Z79.899 Other long term (current) drug therapy
CPT/HCPCS: 87081; 87880; 99283